=== PATIENT | male | born 1985 | race Caucasian/White ===

== ENCOUNTER 2017-01-24 11:26 | Emergency (ER) | payer OTHER ==
[2017-01-24 11:30] VITALS: BP 130/81; PULSE 105; TEMP 97.8; BMI 31.2
--- NOTE | 2017-01-24 12:39 | PDOC ---
History of Present Illness - General Chief Complaint: Pain Stated Complaint: SICK Time Seen by Provider: 01/24/17 12:34 History Source: Patient Exam Limitations: No Limitations - History of Present Illness Initial Comments: 01/24/17 12:58 My chief complaint: Nasal and sinus congestion, right ear clogged decreased hearing today productive cough 2 weeks and left index finger swelling 1 month History of present illness: Patient is a 31 year old male insulin-dependent with arthritis here today complaining of being sick for 2 weeks with nasal and sinus congestion, productive cough of greenish phlegm. Patient denies any shortness of breath. Patient reports that today he woke up and his right ear was clogged could not hear well out of it. Patient denies any pain in his ears. He denies sore throat. Patient reports having had chills and subjective fever over the last 2 weeks. Patient has had swelling of his left index finger PIP joint one month. He denies injury to finger. Pt. warts that joint is painful with movement. He denies any known sick contacts or travel. 01/24/17 13:09 01/24/17 13:10 Timing/Duration: intermittent (for 2 weeks nasal congestion, productive cough, sinus/nasal congestion) Severity: moderate Associated Symptoms: reports: cough (productive greenish ), fever/chills ( chills ), other (nasal and sinus congeston, pain left index finger with swelling of pip jt for one month ) Past History - Past Medical History Allergies/Adverse Reactions: Allergies Allergy/AdvReac Type Severity Reaction Status Date / Time No Known Allergies Allergy Verified 01/24/17 11:30 Home Medications: Ambulatory Orders Gabapentin 0 mg PO DAILY 08/18/14 Insulin NPL/Insulin Lispro [Humalog Mix 50-50 Kwikpen] 25 unit SQ BID 08/18/14 Amoxicillin - [Amoxicillin 875mg Tablet -] 875 mg PO BID #20 tablet 01/24/17 Carbamide Peroxide [Debrox] 5 drop AD AC #1 drops 01/24/17 COPD: No Diabetes: Yes Other medical history: ARTHRITIS - Immunization History Immunization Up to Date: Yes - Suicide/Smoking/Psychosocial Hx Smoking Status: No Smoking History: Current every day smoker Have you smoked in the past 12 months: Yes Number of Cigarettes Smoked Daily: 15 Information on smoking cessation initiated: No 'Breaking Loose' booklet given: 08/21/14 Hx Alcohol Use: No Drug/Substance Use Hx: No Substance Use Type: None Hx Substance Use Treatment: No Review of Systems - Review of Systems Able to Perform ROS?: Yes Constitutional: Yes: Chills, Fever (subjective ) HEENTM: Yes: Nose Pain, Hearing Loss (rt. ear today ), Other (sinus tenderness above eyes ) Respiratory: Yes: Productive cough (greenish x 2 weeks ) Cardiac (ROS): No: Symptoms Reported ABD/GI: No: Symptoms Reported : No: Symptoms Reported Musculoskeletal: Yes: Joint Pain (left index PIP jt ), Joint Swelling (left index pip jt ) Integumentary: No: Symptoms Reported *Physical Exam - Vital Signs Last Vital Signs Temp Pulse Resp BP Pulse Ox 97.8 F 105 H 18 130/81 98 01/24/17 11:27 01/24/17 11:27 01/24/17 11:27 01/24/17 11:27 01/24/17 11:27 - Physical Exam General Appearance: Yes: Appropriately Dressed HEENT: positive: TMs Normal (left ), Nasal Congestion, Sinus Tenderness ( ethymoid b/l ), Hearing Decreased (rt. ), Other (rt. cerumen unable to visualize ). negative: Pharyngeal Erythema, Tonsillar Exudate, Tonsillar Erythema Neck: negative: Lymphadenopathy (R), Lymphadenopathy (L) Respiratory/Chest: positive: Lungs Clear, Normal Breath Sounds. negative: Chest Tender, Respiratory Distress Cardiovascular: positive: Regular Rhythm, Regular Rate, S1, S2 Extremity: positive: Normal Capillary Refill, Normal Range of Motion (left index ), Tender (left index pip jt ), Swelling (left index pip jt ). negative: Normal Inspection (left index ) Integumentary: positive: Normal Color Neurologic: positive: Alert Medical Decision Making - Medical Decision Making 01/24/17 13:10 Patient is a 31 year old male insulin-dependent with arthritis here today complaining of being sick for 2 weeks with nasal and sinus congestion, productive cough of greenish phlegm. Patient denies any shortness of breath. Patient reports that today he woke up and his right ear was clogged could not hear well out of it. Patient denies any pain in his ears. He denies sore throat. Patient reports having had chills and subjective fever over the last 2 weeks. Patient has had swelling of his left index finger PIP joint one month. He denies injury to finger. Pt. warts that joint is painful with movement. He denies any known sick contacts or travel. rt. ear cerumen impaction bronchitis sinus and nasal congestion r/o fracture left index finger 01/24/17 13:12 PLAN: irrigation of rt. ear with moderate removal of cerumen unable to visualize TM still will have pt. use debrox 5 drops bid for 4 days follow up with ENT next week xray left index finger no fracture or dislocation noted 01/24/17 13:24 Aleve or Advil as needed as directed by telegraph installer follow up with orthopedist amoxicillin 875 mg bid for 10 days 01/24/17 13:25 01/24/17 14:04 Mucinex directed by telegraph installer for cough claritin or nadia take as directed for 5 days debrox 5 drops rt ear bid for 4 days 01/24/17 14:20 *DC/Admit/Observation/Transfer Diagnosis at time of Disposition: Bronchitis, Sinus congestion, Finger pain, left, Excessive cerumen in right ear canal - Discharge Dispostion Disposition: HOME Condition at time of disposition: Stable - Prescriptions Prescriptions: Amoxicillin - [Amoxicillin 875mg Tablet -] 875 mg PO BID #20 tablet Carbamide Peroxide [Debrox] 5 drop AD AC #1 drops - Referrals Referrals: Raegan Brennan [Primary Care Provider] - Sundar Lepe MD [Staff Physician] - - Patient Instructions Additional Instructions: Follow-up with orthopedist in regards to your left index finger for further evaluation Take Advil or Aleve as needed as directed by telegraph installer for pain of finger Take Claritin or Nadia as directed by telegraph installer for nasal congestion sinus pressure You may purchase Mucinex [id number] and take as directed for cough Return to emergency room if symptoms worsen difficulty breathing or any other symptoms develop Patient voiced understanding of discharge instructions and all questions were answered thank you fro choosing [facility] emergency room for your medical needs today
== END 2017-01-24 14:33 | disposition home or self-care (01) ==
LOC: JERFT 11:26
PROC: 3E1B78Z Irrigation of Ear using Irrigating Substance, Via Natural or Artificial Opening (ICD-10-PCS; principal; 2017-01-24)
DX: J40 Bronchitis, not specified as acute or chronic (principal); H61.21 Impacted cerumen, right ear; E11.9 Type 2 diabetes mellitus without complications; Z79.4 Long term (current) use of insulin; F17.210 Nicotine dependence, cigarettes, uncomplicated
CPT/HCPCS: 73140-TC-LT; 99281-25

== ENCOUNTER 2017-02-18 11:58 | Emergency (ER) | payer OTHER ==
[2017-02-18 12:19] VITALS: BP 131/77; PULSE 81; TEMP 97.9; BMI 36.3
[2017-02-18] MEDS ORDERED: KETOROLAC TROMETHAMINE 60 MG/2 ML VIAL IM ONE (13:39)
--- NOTE | 2017-02-18 13:39 | PDOC ---
History of Present Illness - General Chief Complaint: Pain Stated Complaint: PAIN/ LEGS, WEAKNESS Time Seen by Provider: 02/18/17 13:22 History Source: Patient Exam Limitations: No Limitations - History of Present Illness Initial Comments: 02/18/17 13:53 Patient is a 31-year-old male with past medical history of diabetes, chronic low back pain, chronic neck pain, who presents to the emergency department today complaining of bilateral calf pain. Patient states the pain on the right is worse than the left. He states that the pain feels like a shooting pain through his calf. The pain radiates up to the back of his mid thigh. Patient states that he cannot get comfortable and that it hurts to walk. Patient works as a otr refrigerated cdl truck driver. Denies trauma, falls, recent illness, numbness and tingling to the feet, weakness in the feet, bowel and bladder incontinence. Past History - Travel Traveled outside of the country in the last 30 days: No Close contact w/someone who was outside of country & ill: No - Past Medical History Allergies/Adverse Reactions: Allergies Allergy/AdvReac Type Severity Reaction Status Date / Time No Known Allergies Allergy Verified 02/18/17 12:19 Home Medications: Ambulatory Orders Gabapentin 0 mg PO DAILY 08/18/14 Insulin Degludec [Tresiba Flextouch U-100] 100 unit SQ ASDIR 02/18/17 Linagliptin/Metformin HCl [Jentadueto 2.5 mg-500 mg Tab] 1 each PO ASDIR Naproxen/Esomeprazole Mag [Vimovo Dr 375-20 mg Tablet] 1 each PO ASDIR 02/18/17 Oxycodone HCl/Acetaminophen [Percocet 10-325 mg Tablet] 1 each PO ASDIR Prednisone [Deltasone -] 40 mg PO DAILY #8 tablet 02/18/17 Ramipril [Altace] 2.5 mg PO DAILY 02/18/17 COPD: No DVT: No Diabetes: Yes Other medical history: arthritis, carpal tunnel - Immunization History Immunization Up to Date: Yes - Suicide/Smoking/Psychosocial Hx Smoking Status: No Smoking History: Current every day smoker Have you smoked in the past 12 months: Yes Number of Cigarettes Smoked Daily: 10 Information on smoking cessation initiated: Yes 'Breaking Loose' booklet given: 02/18/17 Hx Alcohol Use: No Drug/Substance Use Hx: No Substance Use Type: None Hx Substance Use Treatment: No Review of Systems - Review of Systems Able to Perform ROS?: Yes Comments:: 02/18/17 13:55 CONSTITUTIONAL: Absent: fever, chills, diaphoresis, generalized weakness, malaise, loss of appetite HEENT: Absent: rhinorrhea, nasal congestion, throat pain, throat swelling, difficulty swallowing, mouth swelling, ear pain, eye pain, visual Changes CARDIOVASCULAR: Absent: chest pain, loss of consciousness, palpitations, irregular heart rate, peripheral edema RESPIRATORY: Absent: cough, shortness of breath, dyspnea with exertion, orthopnea, wheezing, stridor, hemoptysis GASTROINTESTINAL: Absent: abdominal pain, abdominal distension, nausea, vomiting, diarrhea, constipation, melena, hematochezia GENITOURINARY: Absent: dysuria, frequency, urgency, hesitancy, hematuria, flank pain, genital pain MUSCULOSKELETAL: Present: b/l calf pain, reports leg swelling. low back pain. Absent: myalgia, arthralgia, joint swelling SKIN: Absent: rash, itching, pallor HEMATOLOGIC/IMMUNOLOGIC: Absent: easy bleeding, easy bruising, lymphadenopathy, frequent infections ENDOCRINE: Absent: unexplained weight gain, unexplained weight loss, heat intolerance, cold intolerance NEUROLOGIC: Absent: headache, focal weakness or paresthesias, dizziness, unsteady gait, seizure, mental status changes, bladder or bowel incontinence PSYCHIATRIC: Absent: anxiety, depression, suicidal or homicidal ideation, hallucinations. Is the patient limited Greek proficient: No *Physical Exam - Vital Signs Last Vital Signs Temp Pulse Resp BP Pulse Ox 97.9 F 81 19 131/77 98 02/18/17 12:17 02/18/17 12:17 02/18/17 12:17 02/18/17 12:17 02/18/17 12:17 - Physical Exam Comments: 02/18/17 13:56 GENERAL: Well developed, well nourished. Awake and alert. No acute distress. HEENT: Normocephalic, atraumatic. PERRLA, EOMI. No conjunctival pallor. Sclera are non- icteric. Moist mucous membranes. Oropharynx is clear. NECK: Supple. Full ROM. No JVD. Carotid pulses 2+ and symmetric, without bruits. No thyromegaly. No lymphadenopathy. CARDIOVASCULAR: Regular rate and rhythm. No murmurs, rubs, or gallops. Distal pulses are 2+ and symmetric. PULMONARY: No evidence of respiratory distress. Lungs clear to auscultation bilaterally. No wheezing, rales or rhonchi. ABDOMINAL: Soft. Non-tender. Non-distended. No rebound or guarding. No organomegaly. Normoactive bowel sounds. MUSCULOSKELETAL Normal range of motion at all joints. No bony deformities or tenderness. No CVA tenderness. EXTREMITIES: B/L calf tenderness to palpation. Mildly swollen b/l. No cyanosis. No clubbing. No edema. SKIN: Warm and dry. Normal capillary refill. No rashes. No jaundice. NEUROLOGICAL: Alert, awake, appropriate. Cranial nerves 2-12 intact. No deficits to light touch and temperature in face, upper extremities and lower extremities. No motor deficits in the in face, upper extremities and lower extremities. Normoreflexic in the upper and lower extremities. Normal speech. Toes are down- going bilaterally. Gait is normal without ataxia. PSYCHIATRIC: Cooperative. Good eye contact. Appropriate mood and affect. Medical Decision Making - Medical Decision Making 02/18/17 13:57 Patient is a 31-year-old male with past medical history of insulin-dependent diabetes, low back pain, chronic neck pain, who presents emergency Department with increasing calf pain. States the pain is a shooting pain and that his legs are swollen. 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 Most likely a chronic pain that has been exacerbated. Also cannot rule out neuropathy given his diabetes 1.Toradol, Percocet, prednisone 2.duplex ultrasound 3.reevaluate 02/18/17 14:58 Ultrasound negative at this time. Most likely a chronic exacerbation of his pain. Guillermo ld/c home with steroids and instructions to take his pain medications as prescribed. Informed to keep good blood sugar control given prednisone can elevate the blood sugar. *DC/Admit/Observation/Transfer Diagnosis at time of Disposition: Leg pain Qualifiers: Laterality: bilateral Qualified Code(s): M79.604 - Pain in right leg - Discharge Dispostion Disposition: HOME Condition at time of disposition: Good Admit: No - Prescriptions Prescriptions: Prednisone [Deltasone -] 40 mg PO DAILY #8 tablet - Referrals Referrals: Raegan Brennan [Primary Care Provider] - - Patient Instructions Printed Discharge Instructions: DI for Leg Pain Additional Instructions: You have leg pain. Your DVT study was negative today. You need to follow up with your primary care doctor and pain management doctor as soon as possible. You were prescribed prednisone. Please take this medication as prescribed. Check your blood sugar regularly as this medication can make your sugar very high. Return to the ED if you have worsening pain, fevers, bowel or bladder incontinence, or have any changes in your symptoms. - Post Discharge Activity Forms/Work/School Notes: Back to Work
[2017-02-18] MEDS ORDERED: KETOROLAC TROMETHAMINE 60 MG/2 ML VIAL ONE (13:43)
[2017-02-18] MEDS ORDERED: predniSONE 20 MG TABLET (UD) PO ONE (13:45)
[2017-02-18] MEDS ORDERED: predniSONE 20 MG TABLET (UD) ONE (13:50)
== END 2017-02-18 15:25 | disposition home or self-care (01) ==
LOC: JERFT 11:58
PROC: 3E0233Z Introduction of Anti-inflammatory into Muscle, Percutaneous Approach (ICD-10-PCS; principal; 2017-02-18)
DX: M79.604 Pain in right leg (principal); E10.9 Type 1 diabetes mellitus without complications; Z79.4 Long term (current) use of insulin; M54.2 Cervicalgia; M54.5 Low back pain
CPT/HCPCS: 93970-TC; 96372; 99281-25

== ENCOUNTER 2017-08-14 09:51 | Emergency (ER) | payer OTHER ==
[2017-08-14 10:07] VITALS: BP 120/70; PULSE 83; TEMP 98.3; BMI 36.0
--- NOTE | 2017-08-14 10:42 | PDOC ---
History of Present Illness - General Chief Complaint: Migraine Headache Stated Complaint: HEADACHES, WEAKNESS Time Seen by Provider: 08/14/17 10:41 History Source: Patient Exam Limitations: No Limitations - History of Present Illness Initial Comments: 08/14/17 10:41 Best Contact: refused PCP: Dr. Raegan Brennan Pmhx: IDDM, Arthritis, Carpal tunnel, Pshx:N/A Allergies: NKDA FH:N/A Social Hx: Ciarettes/ Alcohol/ Drugs/ LMP: N/A 32-year-old male presents to the emergency department complaining of frontal, right maxillary pressure with nasal congestion, productive cough 4 days without fever, chills, nausea/vomiting, earaches, sore throat, difficulty swallowing, neck pain/stiffness, back pains, chest pain, shortness of breath, abdominal pains, flank pains, urinary symptoms. Past History - Past Medical History Allergies/Adverse Reactions: Allergies Allergy/AdvReac Type Severity Reaction Status Date / Time No Known Allergies Allergy Verified 08/14/17 10:07 Home Medications: Ambulatory Orders Insulin Degludec [Tresiba Flextouch U-100] 100 unit SQ ASDIR 02/18/17 Linagliptin/Metformin HCl [Jentadueto 2.5 mg-500 mg Tab] 1 each PO ASDIR Oxycodone HCl/Acetaminophen [Percocet 10-325 mg Tablet] 10 mg PO ASDIR 06/01/17 Tizanidine HCl 2 mg PO ASDIR 06/01/17 Amoxicillin/Potassium Clav [Augmentin 875-125 Tablet] 1 each PO BID #20 tablet 08/14/17 COPD: No DVT: No Diabetes: Yes - Immunization History Immunization Up to Date: Yes - Suicide/Smoking/Psychosocial Hx Smoking Status: No Smoking History: Current some day smoker Have you smoked in the past 12 months: Yes Number of Cigarettes Smoked Daily: 10 Information on smoking cessation initiated: No 'Breaking Loose' booklet given: 02/18/17 Hx Alcohol Use: No Drug/Substance Use Hx: No Substance Use Type: None Hx Substance Use Treatment: No Review of Systems - Review of Systems Able to Perform ROS?: Yes Comments:: 08/14/17 10:42 CONSTITUTIONAL: Absent: fever, chills, diaphoresis, generalized weakness, malaise, loss of appetite HEENT: Absent: rhinorrhea, nasal congestion, throat pain, throat swelling, difficulty swallowing, mouth swelling, ear pain, eye pain, visual Changes CARDIOVASCULAR: Absent: chest pain, loss of consciousness, palpitations, irregular heart rate, peripheral edema RESPIRATORY: +cough/nasal congestion Right sided maxillar pressure/frontal forehead pressure Absent: shortness of breath, dyspnea with exertion, orthopnea, wheezing, stridor, hemoptysis GASTROINTESTINAL: Absent: abdominal pain, abdominal distension, nausea, vomiting, diarrhea, constipation, melena, hematochezia GENITOURINARY: Absent: dysuria, frequency, urgency, hesitancy, hematuria, flank pain, genital pain MUSCULOSKELETAL: Absent: myalgia, arthralgia, joint swelling SKIN: Absent: rash, itching, pallor HEMATOLOGIC/IMMUNOLOGIC: Absent: easy bleeding, easy bruising, lymphadenopathy, frequent infections ENDOCRINE: Absent: unexplained weight gain, unexplained weight loss, heat intolerance, cold intolerance NEUROLOGIC: Absent: headache, focal weakness or paresthesias, dizziness, unsteady gait, seizure, mental status changes, bladder or bowel incontinence PSYCHIATRIC: Absent: anxiety, depression, suicidal or homicidal ideation, hallucinations. Is the patient limited Maltese proficient: No *Physical Exam - Vital Signs Last Vital Signs Temp Pulse Resp BP Pulse Ox 98.3 F 83 20 120/70 98 08/14/17 10:06 08/14/17 10:06 08/14/17 10:06 08/14/17 10:06 08/14/17 10:06 - Physical Exam Comments: 08/14/17 10:42 GENERAL: Well developed, well nourished. Awake and alert. No acute distress. HEENT: Positive pain to the right maxillary region on percussion Normocephalic, atraumatic. PERRLA, EOMI. No conjunctival pallor. Sclera are non- icteric. Moist mucous membranes. Oropharynx is clear. NECK: Supple. Full ROM. No JVD. Carotid pulses 2+ and symmetric, without bruits. No thyromegaly. No lymphadenopathy. CARDIOVASCULAR: Regular rate and rhythm. No murmurs, rubs, or gallops. Distal pulses are 2+ and symmetric. PULMONARY: No evidence of respiratory distress. Lungs clear to auscultation bilaterally. No wheezing, rales or rhonchi. ABDOMINAL: Soft. Non-tender. Non-distended. No rebound or guarding. No organomegaly. Normoactive bowel sounds. MUSCULOSKELETAL Normal range of motion at all joints. No bony deformities or tenderness. No CVA tenderness. EXTREMITIES: No cyanosis. No clubbing. No edema. No calf tenderness. SKIN: Warm and dry. Normal capillary refill. No rashes. No jaundice. NEUROLOGICAL: Alert, awake, appropriate. Cranial nerves 2-12 intact. No deficits to light touch and temperature in face, upper extremities and lower extremities. No motor deficits in the in face, upper extremities and lower extremities. Normoreflexic in the upper and lower extremities. Normal speech. Toes are down- going bilaterally. Gait is normal without ataxia. *DC/Admit/Observation/Transfer Diagnosis at time of Disposition: Sinusitis Qualifiers: Sinusitis location: maxillary Chronicity: acute Recurrence: not specified as recurrent Qualified Code(s): J01.00 - Acute maxillary sinusitis, unspecified Acute bronchitis Qualifiers: Bronchitis organism: unspecified organism Qualified Code(s): J20.9 - Acute bronchitis, unspecified - Discharge Dispostion Disposition: HOME Condition at time of disposition: Stable Decision to Admit order: No - Prescriptions Prescriptions: Amoxicillin/Potassium Clav [Augmentin 875-125 Tablet] 1 each PO BID #20 tablet - Referrals Referrals: Raegan Brennan [Primary Care Provider] - - Patient Instructions Printed Discharge Instructions: DI for Sinusitis, DI for Acute Bronchitis Additional Instructions: Take the Augmentin 875 mg 1 tablet twice a day until completion Increase fluids [id number] supportive care Follow-up with your doctor, Dr. Brennan Return to the ER for severe/persistent or worsening symptoms - Post Discharge Activity
== END 2017-08-14 11:03 | disposition home or self-care (01) ==
LOC: JERFT 09:51
DX: J01.00 Acute maxillary sinusitis, unspecified (principal); J20.9 Acute bronchitis, unspecified; F17.210 Nicotine dependence, cigarettes, uncomplicated; E11.9 Type 2 diabetes mellitus without complications; Z79.4 Long term (current) use of insulin
CPT/HCPCS: 99281-25

== ENCOUNTER 2018-03-25 12:18 | Emergency (ER) | payer OTHER ==
[2018-03-25] MEDS ORDERED: ONDANSETRON 4 MG/2 ML VIAL IVPB ONE (12:41)
[2018-03-25] MEDS ORDERED: SODIUM CHLORIDE 1,000 ML IV ONE (12:42)
--- NOTE | 2018-03-25 12:42 | PDOC ---
Attending Attestation - Resident Resident Name: HiraCj tinsley - ED Attending Attestation I have performed the following: I have examined & evaluated the patient, The case was reviewed & discussed with the resident, I agree w/resident's findings & plan, Exceptions are as noted - HPI HPI: 03/25/18 12:43 32y M hx of DM, presents with complaint of vomiting/diarrhea/gneralized weakness for several days. Pt went to the restroom today and felt very lightheaded and felt like passing out so came to the ED. endorses subjective fevers. the pt notes some sob. denies any cp, abd pain, no recent travel or sick contacts. vomiting is food contents, non bloody, non coffee grounds. diarrhea is non bloody, watery. pt endorses mild headache for the last several days in addition to his sypmtoms denies any vision changse, numbness/tingling/weakness. - Physicial Exam PE: 03/25/18 13:01 GENERAL: The patient is awake, alert, and fully oriented, Nontoxic - in no acute distress. HEAD: Normocephalic, atraumatic. EYES: extraocular movements intact, sclera anicteric, conjunctiva clear. ENT: Normal voice, dry mucous membranes. NECK: Normal range of motion, supple LUNGS: Breath sounds equal, clear to auscultation bilaterally. No wheezes, no rhonchi, no rales. HEART: Regular rate and rhythm, normal S1 and S2 without murmur, rub or gallop. ABDOMEN: Soft, mild llq tenderness, No guarding, no rebound. . No CVA tenderness EXTREMITIES: Normal range of motion, NEUROLOGICAL: No facial assymetry, Normal speech, PSYCH: Normal mood, normal affect. SKIN: Warm, Dry, normal turgor, - Medical Decision Making 03/25/18 13:03 Suspect possible gastroenteritis Will check labs to rule out metabolic derangements Zofran for symptomatic relief will also rule out DKA 03/25/18 13:26 The patient's labs were reviewed there is no signs of DKA however the patient does have +1 acetone I suspect this may be due to volume contraction/ dehydration. Will reyhydrate the patient and treated supportively will reassess.
[2018-03-25 12:50] LABS: VENOUS PC02 38.5 mmHg (38-52); VENOUS PH 7.4 (7.32-7.42); VENOUS PO2 27.3 mmHg (28-48)
[2018-03-25 12:52] LABS: BASO % 1.4 % (0-2.0); EOS % 1.4 % (0-4.5); HEMATOCRIT 49.7 % (35.4-49); MCH 28.7 pg (25.7-33.7); MCHC 34.2 g/dl (32.0-35.9); MEAN PLT VOLUME 9.5 fl (7.5-11.1); NEUT % 56.2 % (42.8-82.8); PLATELET COUNT 347 K/MM3 (134-434); RBC 5.91 M/mm3 (4.00-5.60); RDW 12.7 % (11.9-15.9); WHITE BLOOD COUNT 10.7 K/mm3 (4.0-10.0)
[2018-03-25 13:09] LABS: ALBUMIN 4.6 g/dl (3.4-5.0); ALK PHOS 90 U/L (45-117); ANION GAP 14 MMOL/L (8-16); BILIRUBIN,TOTAL 0.6 mg/dL (0.2-1); BLOOD UREA NITROGEN 18 mg/dL (7-18); CALCIUM 9.8 mg/dL (8.5-10.1); CHLORIDE 99 mmol/L (98-107); CO2 21 mmol/L (21-32); CREATININE 1.1 mg/dL (0.55-1.3); GLUCOSE,RANDOM 196 mg/dL (74-106); LIPASE 283 U/L (73-393); POTASSIUM 3.9 mmol/L (3.5-5.1); SGOT/AST 13 U/L (15-37); SGPT/ALT 28 U/L (13-61); SODIUM 133 mmol/L (136-145); TOT PROT 8.5 g/dl (6.4-8.2)
[2018-03-25] MEDS ORDERED: SODIUM CHLORIDE 1,000 ML IV STA (13:13)
--- NOTE | 2018-03-25 13:21 | PDOC ---
History of Present Illness - General Chief Complaint: Weakness Stated Complaint: Vomiting/Diarrhea/ABD PAIN Time Seen by Provider: 03/25/18 12:40 History Source: Patient Exam Limitations: No Limitations - History of Present Illness Initial Comments: 03/25/18 13:15 Patient is a 32M with history of IDDM here today complaining of abdominal pain, nausea, and vomiting that started this morning. Patient also endorses shortness of breath, hand tingling. Denies fevers, chills. Denies blood and vomit. Denies alcohol use during new years celebration. Denies chest pain, leg swelling. Patient reports compliance with medication. Patient was sitting on floor in waiting room because he said he was too weak. Past History - Past Medical History Allergies/Adverse Reactions: Allergies Allergy/AdvReac Type Severity Reaction Status Date / Time No Known Allergies Allergy Verified 03/25/18 12:36 Home Medications: Ambulatory Orders Tizanidine HCl 2 mg PO ASDIR 06/01/17 Gabapentin [Neurontin -] mg PO ASDIR 03/25/18 Insulin Glargine,Hum.rec.anlog [Lantus Solostar PEN (NF)] 0 units SQ ASDIR 03/25 Insulin Sliding Scale [Novolog Vial Sliding Scale -] 0 units SQ ACHS 03/25/18 Meloxicam [Mobic] 15 mg PO ASDIR 03/25/18 COPD: No DVT: No Diabetes: Yes - Immunization History Immunization Up to Date: Yes - Suicide/Smoking/Psychosocial Hx Smoking Status: No Smoking History: Current some day smoker Have you smoked in the past 12 months: Yes Number of Cigarettes Smoked Daily: 10 'Breaking Loose' booklet given: 02/18/17 Hx Alcohol Use: No Drug/Substance Use Hx: No Substance Use Type: None Hx Substance Use Treatment: No Review of Systems - Review of Systems Comments:: 03/25/18 13:24 GENERAL/CONSTITUTIONAL: No fever or chills. +weakness. HEAD, EYES, EARS, NOSE AND THROAT: No change in vision. No sore throat. CARDIOVASCULAR: No chest pain +shortness of breath RESPIRATORY: No cough, wheezing, or hemoptysis. GASTROINTESTINAL: +nausea, +vomiting, +diarrhea GENITOURINARY: No dysuria, frequency, or change in urination. MUSCULOSKELETAL: No joint or muscle swelling or pain. No neck or back pain. SKIN: No rash NEUROLOGIC: +headache, no vertigo, loss of consciousness, or change in strength/ sensation. ALLERGIC/IMMUNOLOGIC: No hives or skin allergy. *Physical Exam - Physical Exam Comments: 03/25/18 13:26 GENERAL: Awake, alert, and fully oriented, tearful HEAD: No signs of trauma, normocephalic, atraumatic EYES: PERRLA, EOMI, sclera anicteric, conjunctiva clear ENT: Auricles normal inspection, hearing grossly normal, nares patent, oropharynx clear without exudates. Moist mucosa NECK: Normal ROM, supple, no lymphadenopathy, JVD, or masses LUNGS: No distress, speaks full sentences, clear to auscultation bilaterally HEART: Regular rate and rhythm, normal S1 and S2, no murmurs, rubs or gallops, peripheral pulses normal and equal bilaterally. ABDOMEN: Soft, nontender, normoactive bowel sounds. No guarding, no rebound. No masses EXTREMITIES: Normal inspection, Normal range of motion, no edema. No clubbing or cyanosis. NEUROLOGICAL: Cranial nerves II through XII grossly intact. Normal speech, no focal sensorimotor deficits SKIN: Warm, Dry, normal turgor, no rashes or lesions noted. ED Treatment Course - LABORATORY CBC & Chemistry Diagram: 03/25/18 12:42 03/25/18 12:42 - ADDITIONAL ORDERS Additional order review: Laboratory Results 03/25/18 03/25/18 03/25/18 12:42 12:42 12:42 VBG pH 7.40 POC VBG pCO2 38.5 POC VBG pO2 27.3 L Mixed VBG HCO3 23.3 Sodium 133 L Potassium 3.9 Chloride 99 Carbon Dioxide 21 Anion Gap 14 BUN 18 Creatinine 1.1 Creat Clearance w eGFR > 60 Random Glucose 196 H Calcium 9.8 Magnesium 2.0 Total Bilirubin 0.6 AST 13 L ALT 28 Alkaline Phosphatase 90 Total Protein 8.5 H Albumin 4.6 Lipase 283 03/25/18 12:42 RBC 5.91 H MCV 84.0 MCHC 34.2 RDW 12.7 MPV 9.5 D Neutrophils % 56.2 D Lymphocytes % 35.0 D Monocytes % 6.0 Eosinophils % 1.4 Basophils % 1.4 Medical Decision Making - Medical Decision Making 03/25/18 13:37 Patient is 32M here today with shortness of breath, weakness, vomiting. Vitals normal and stable. DDx includes, but is not limited to: dka, dehydration, gastritis. Will evaluate with cbc, cmp, vbg, acetone, lipase. Will treat with fluids and reglan. 03/25/18 14:00 Laboratory Tests 03/25/18 03/25/18 03/25/18 12:42 12:42 12:42 WBC 10.7 H Hgb 17.0 H Plt Count 347 D VBG pH 7.40 Random Glucose 196 H Acetone, Qual 03/25/18 12:42 WBC Hgb Plt Count VBG pH Random Glucose Acetone, Qual Positive small 1+ CBC shows evidence of hemoconcentration. Acetone small+. Glucose<200. VBG ph normal. Gap normal. Patient is not on sglt2 inhibitor. Patient is not in DKA. Given percocet for chronic pain. Will hydrate, reassess. 03/25/18 17:56 Reassessed, feels better. Will discharge home with instructions to follow up with your primary care doctor. *DC/Admit/Observation/Transfer Diagnosis at time of Disposition: Vomiting - Discharge Dispostion Disposition: HOME Condition at time of disposition: Good Decision to Admit order: No - Referrals Referrals: Raegan Brennan [Primary Care Provider] - - Patient Instructions Printed Discharge Instructions: DI for Vomiting -- Adult Additional Instructions: Please return to the ED if you have any new, worsening or concerning symptoms, especially fever, increasing pain and repeated vomiting. Please follow up with your primary care doctor this week. - Post Discharge Activity
[2018-03-25] MEDS ORDERED: ONDANSETRON 4 MG/2 ML VIAL ONE ×2 (13:35→13:44)
[2018-03-25] MEDS ORDERED: CYCLOBENZAPRINE HCL 5 MG TABLET PO SCH (14:00)
[2018-03-25 14:06] VITALS: BMI 36.3
[2018-03-25] MEDS ORDERED: CYCLOBENZAPRINE HCL 10 MG TABLET (FP) ONE (14:31)
[2018-03-25 15:58] VITALS: PULSE 89; TEMP 98.1
[2018-03-25] MEDS ORDERED: ACETAMINOPHEN 1000 MG/100 ML VIAL (NON FORMULARY) IVPB ONE (16:39)
[2018-03-25] MEDS ORDERED: ACETAMINOPHEN INJECTION 100 ML IVPB ONE (17:47)
[2018-03-25 18:11] VITALS: BP 128/67
--- NOTE | 2018-03-26 19:00 | EKG ---
Test Reason : Blood Pressure : / mmHG Vent. Rate : 091 BPM Atrial Rate : 091 BPM P-R Int : 162 ms QRS Dur : 094 ms QT Int : 342 ms P-R-T Axes : 047 -01 008 degrees QTc Int : 420 ms NORMAL SINUS RHYTHM NONSPECIFIC ST AND T WAVE ABNORMALITY ABNORMAL ECG NO PREVIOUS ECGS AVAILABLE Confirmed by VICKIE HORNER MD ([id number]) on 03/26/2018 6:59:58 PM Referred By: Confirmed By:VICKIE HORNER MD
== END 2018-03-25 18:00 | disposition home or self-care (01) ==
LOC: JER 12:18
PROC: 3E0337Z Introduction of Electrolytic and Water Balance Substance into Peripheral Vein, Percutaneous Approach (ICD-10-PCS; principal; 2018-03-25)
PROC: 3E033GC Introduction of Other Therapeutic Substance into Peripheral Vein, Percutaneous Approach (ICD-10-PCS; 2018-03-25)
PROC: 3E033NZ Introduction of Analgesics, Hypnotics, Sedatives into Peripheral Vein, Percutaneous Approach (ICD-10-PCS; 2018-03-25)
DX: K52.9 Noninfective gastroenteritis and colitis, unspecified (principal); F17.210 Nicotine dependence, cigarettes, uncomplicated
CPT/HCPCS: 36415; 80053; 82009; 82803; 83690; 83735; 85025; 93005; 93010; 96361; 96374; 96375; 99283-25; J7030

== ENCOUNTER 2018-03-29 02:19 | Inpatient (IN) | payer OTHER ==
[2018-03-29 02:41] VITALS: BMI 30.9
[2018-03-29] MEDS ORDERED: ONDANSETRON 4 MG/2 ML VIAL IVPB ONE ×2 (02:46→16:45)
[2018-03-29] MEDS ORDERED: FAMOTIDINE 20 MG/50 ML IVPB 20 MG/50 ML MG IVPB ONE ×2 (02:46→02:52)
--- NOTE | 2018-03-29 02:48 | PDOC ---
Attending Attestation - Resident Resident Name: Cj Suárez - ED Attending Attestation I have performed the following: I have examined & evaluated the patient, The case was reviewed & discussed with the resident, I agree w/resident's findings & plan - HPI HPI: 03/29/18 02:54 Pt comes with N/V; he was here on Mar 25 with the same; no alcohol consumption, but he does smoke pot. He is obese and has DM; looks like a DM gastroparesis; however he reports that he has never had gastroparesis. - Physicial Exam PE: 03/30/18 04:29 Agree with resident exam. - Medical Decision Making 03/30/18 04:29 Pt is in DKA and he will be hydrated more and treated with IV insulin drip. Here he will receive a bolus, as nurses are too busy to start a drip immediately. Pt was transferred to the MICU.
[2018-03-29] MEDS ORDERED: ONDANSETRON 4 MG/2 ML VIAL ONE ×2 (02:53→03:46)
[2018-03-29] MEDS ORDERED: SODIUM CHLORIDE 0.9% 500 ML INFUS.BAG IV ONE (02:55)
[2018-03-29 02:57] LABS: BASO % 0.5 % (0-2.0); EOS % 0.1 % (0-4.5); HEMATOCRIT 53.1 % (35.4-49); HEMOGLOBIN 18.1 GM/dL (11.7-16.9); LYMPH % 17.9 % (8-40); MCH 29.6 pg (25.7-33.7); MCHC 34.1 g/dl (32.0-35.9); MEAN CELL VOLUME 86.9 fl (80-96); MEAN PLT VOLUME 10.6 fl (7.5-11.1); MONO % 5.5 % (3.8-10.2); PLATELET COUNT 418 K/MM3 (134-434); RBC 6.11 M/mm3 (4.00-5.60); RDW 13.2 % (11.9-15.9); WHITE BLOOD COUNT 15.7 K/mm3 (4.0-10.0)
[2018-03-29] MEDS ORDERED: ONDANSETRON 4 MG/2 ML VIAL IVPUSH ONE (03:42)
[2018-03-29 03:43] LABS: ALBUMIN 4.8 g/dl (3.4-5.0); ALK PHOS 96 U/L (45-117); ANION GAP 29 MMOL/L (8-16); BILIRUBIN,TOTAL 0.7 mg/dL (0.2-1); BLOOD UREA NITROGEN 15 mg/dL (7-18); CALCIUM 9.6 mg/dL (8.5-10.1); CHLORIDE 93 mmol/L (98-107); CO2 6 mmol/L (21-32); CREATININE 1.5 mg/dL (0.55-1.3); LIPASE 50 U/L (73-393); POTASSIUM 5.2 mmol/L (3.5-5.1); SGOT/AST 16 U/L (15-37); SGPT/ALT 24 U/L (13-61); SODIUM 127 mmol/L (136-145); TOT PROT 8.8 g/dl (6.4-8.2)
[2018-03-29 03:45] LABS: GLUCOSE,RANDOM 498 mg/dL (74-106)
[2018-03-29 03:46] LABS: ACETONE SERUM POSITIVE MODERATE 2+ (NEGATIVE)
[2018-03-29] MEDS ORDERED: LORazepam 2 MG/ML SDV VIAL ONE (03:46)
[2018-03-29] MEDS ORDERED: INSULIN REGULAR HUMAN 100 UNITS/ML *VIAL IVPUSH ONE (03:49)
[2018-03-29] MEDS ORDERED: INSULIN REGULAR 100 UNITS in SODIUM CHLORIDE 99 ML IVPB SCH ×2 (04:00→22:21)
[2018-03-29] MEDS ORDERED: SODIUM CHLORIDE 0.9%/KCL 20 MEQ/1,000 ML INFUS.BAG IV SCH ×2 (04:00→07:34)
[2018-03-29] MEDS ORDERED: INSULIN REGULAR HUMAN 100 UNITS/ML *VIAL ONE (04:05)
--- NOTE | 2018-03-29 04:11 | PDOC ---
History of Present Illness - General Chief Complaint: Nausea/Vomiting Stated Complaint: NAUSEA/VOMITING Time Seen by Provider: 03/29/18 02:43 History Source: Patient Exam Limitations: No Limitations - History of Present Illness Initial Comments: 03/29/18 04:10 Patient is a 32M with history of IDDM here today complaining of abdominal pain, nausea, and vomiting. This started on Mar 25. He was evaluated in the ED at that time, found not to be in dka with normal gap and normal ph. Patient states that since going home, he has had repeated episodes of vomiting with epigastric abdominal pain and burning to his chest. Denies fevers, chills. Denies blood in vomit. Patient states that he has not been taking his insulin. Denies dysuria, diarrhea, constipation. Past History - Past Medical History Allergies/Adverse Reactions: Allergies Allergy/AdvReac Type Severity Reaction Status Date / Time No Known Allergies Allergy Verified 03/29/18 02:41 Home Medications: Ambulatory Orders Tizanidine HCl 2 mg PO ASDIR 06/01/17 Gabapentin [Neurontin -] 2 mg PO ASDIR 03/25/18 Insulin Glargine,Hum.rec.anlog [Lantus Solostar PEN (NF)] 1 units SQ ASDIR 03/25 Insulin Sliding Scale [Novolog Vial Sliding Scale -] 0 units SQ ACHS 03/25/18 Meloxicam [Mobic] 15 mg PO ASDIR 03/25/18 Atorvastatin Ca [Lipitor] 20 mg PO HS 03/29/18 COPD: No DVT: No Diabetes: Yes - Immunization History Immunization Up to Date: Yes - Suicide/Smoking/Psychosocial Hx Smoking Status: No Smoking History: Never smoked Have you smoked in the past 12 months: No Number of Cigarettes Smoked Daily: 10 Information on smoking cessation initiated: No 'Breaking Loose' booklet given: 02/18/17 Hx Alcohol Use: No Drug/Substance Use Hx: No Substance Use Type: None Hx Substance Use Treatment: No Review of Systems - Review of Systems Able to Perform ROS?: Yes Comments:: 03/29/18 04:16 GENERAL/CONSTITUTIONAL: No fever or chills. No weakness. HEAD, EYES, EARS, NOSE AND THROAT: No change in vision. No sore throat. CARDIOVASCULAR: +chest pain +shortness of breath RESPIRATORY: No cough, wheezing, or hemoptysis. GASTROINTESTINAL: +nausea, +vomiting, no diarrhea or constipation. GENITOURINARY: No dysuria, frequency, or change in urination. MUSCULOSKELETAL: No joint or muscle swelling or pain. No neck or back pain. SKIN: No rash NEUROLOGIC: No headache, vertigo, loss of consciousness, or change in strength/ sensation. ENDOCRINE: No increased thirst. No abnormal weight change ALLERGIC/IMMUNOLOGIC: No hives or skin allergy. *Physical Exam - Vital Signs Last Vital Signs Temp Pulse Resp BP Pulse Ox 97.3 F L 121 H 21 H 136/81 100 03/29/18 02:19 03/29/18 02:19 03/29/18 02:19 03/29/18 02:19 03/29/18 02:19 - Physical Exam Comments: 03/29/18 04:17 GENERAL: Awake, alert, and fully oriented HEAD: No signs of trauma, normocephalic, atraumatic EYES: PERRLA, EOMI, sclera anicteric, conjunctiva clear ENT: Auricles normal inspection, hearing grossly normal, nares patent, oropharynx clear without exudates. Moist mucosa NECK: Normal ROM, supple, no lymphadenopathy, JVD, or masses LUNGS: Tachypneic, speaks full sentences, clear to auscultation bilaterally HEART: Tachycardic, normal S1 and S2, no murmurs, rubs or gallops, peripheral pulses normal and equal bilaterally. ABDOMEN: Soft, nontender, normoactive bowel sounds. No guarding, no rebound. No masses EXTREMITIES: Normal inspection, Normal range of motion, no edema. No clubbing or cyanosis. NEUROLOGICAL: Cranial nerves II through XII grossly intact. Normal speech, no focal sensorimotor deficits SKIN: Warm, Dry, normal turgor, no rashes or lesions noted. Moderate Sedation - Procedure Monitoring Vital Signs: Procedure Monitoring Vital Signs Temperature 97.3 F L 03/29/18 02:19 Pulse Rate 121 H 03/29/18 02:19 Respiratory Rate 21 H 03/29/18 02:19 Blood Pressure 136/81 03/29/18 02:19 O2 Sat by Pulse Oximetry (%) 100 03/29/18 02:19 ED Treatment Course - LABORATORY CBC & Chemistry Diagram: 03/29/18 02:51 03/29/18 02:51 - ADDITIONAL ORDERS Additional order review: Laboratory Results 03/29/18 02:51 Sodium 127 L Potassium 5.2 H Chloride 93 L Carbon Dioxide 6 L Anion Gap 29 H BUN 15 Creatinine 1.5 H Creat Clearance w eGFR 54.59 Random Glucose 498 H* Calcium 9.6 Total Bilirubin 0.7 AST 16 ALT 24 Alkaline Phosphatase 96 Total Protein 8.8 H Albumin 4.8 Lipase 50 L Acetone, Qual Positive moderate 2+ 03/29/18 02:51 RBC 6.11 H MCV 86.9 MCHC 34.1 RDW 13.2 MPV 10.6 D Neutrophils % 76.0 D Lymphocytes % 17.9 D Monocytes % 5.5 Eosinophils % 0.1 D Basophils % 0.5 - RADIOLOGY Radiology Studies Ordered: Category Date Time Status CHEST X-RAY PORTABLE* [RAD] Stat Radiology 03/29/18 03:10 Taken - Medications Given in the ED: ED Medications Discontinued Medications Generic Name Dose Route Start Last Admin Trade Name Freq PRN Reason Stop Dose Admin Famotidine/Sodium Chloride 20 mg in 50 mls @ 100 mls/hr 03/29/18 02:46 03:11 Pepcid 20 Mg Premixed Ivpb - IVPB 03/29/18 03:15 100 mls/hr ONCE ONE Administration Ondansetron HCl 4 mg 03/29/18 02:46 03/29/18 03:11 Zofran Injection IVPB 03/29/18 02:47 4 mg ONCE ONE Administration Ondansetron HCl 4 mg 03/29/18 03:42 03/29/18 03:52 Zofran Injection IVPUSH 03/29/18 03:43 4 mg ONCE ONE Administration Sodium Chloride 1,000 ml 03/29/18 02:55 03/29/18 03:11 Normal Saline - IV 03/29/18 02:56 1,000 ml ONCE ONE Administration Medical Decision Making - Medical Decision Making 03/29/18 04:18 Patient is 32M with history of IDDM here today with vomiting. Tachypneic, tachycardic. DDx includes, but is not limited to: gastroparesis, gastritis, dka. DKA initially thought less likely because fingerstick <300. IV access very difficult to establish, 24g placed in r arm. US guided IV got 20g in L arm. Fluid bolus started. CBC shows hgb of 18. CMP shows gap of 29, glucose 498. Corrected sodium 133. K 5.2. Fluid order changed to NS w/ 20meq K. Insulin 0.1mg/kg bolus given. Drip started. CXR shows no infiltrate, no pneumomediastinum. ICU and hospitalist paged. ABG ordered. EKG shows sinus tachycardia with rate of 129. No st elevations/depressions. Normal axis. Normal intervals. Patient is mentating well. Do not suspect occult bacteremia or meningitis. Do not suspect UA. Patient's abdomen is soft and nontender. Do not suspect peritoneal process. 03/29/18 04:38 ICU paged second time. 03/29/18 04:43 pH 7.09, will continue insulin drip. 03/29/18 04:57 Approved for ICU by Dr Bal. Dr Sanders attending. 03/29/18 06:26 D/W Dr Whitney, accepted to ICU. *DC/Admit/Observation/Transfer Diagnosis at time of Disposition: Vomiting, DKA (diabetic ketoacidoses) - Discharge Dispostion Condition at time of disposition: Critical Decision to Admit order: Yes - Referrals - Patient Instructions - Post Discharge Activity
[2018-03-29] MEDS ORDERED: ACETAMINOPHEN 1000 MG/100 ML VIAL (NON FORMULARY) IVPB ONE (04:18)
[2018-03-29 04:31] LABS: ARTERIAL BLD GAS O2 SATURATION 96.8 % (90-98.9); ARTERIAL BLOOD GAS BASE EXCESS -28.3 meq/l (-2-2)
[2018-03-29 04:38] LABS: ALLENS TEST POSITIVE
[2018-03-29 04:39] LABS: ARTERIAL BLOOD GAS pH 7.09 (7.35-7.45)
[2018-03-29 04:40] LABS: ARTERIAL BLOOD GAS PCO2 9.7 mmHg (35-45)
[2018-03-29] MEDS ORDERED: ACETAMINOPHEN INJECTION 100 ML IVPB ONE (04:48)
--- NOTE | 2018-03-29 04:56 | PN ---
Teaching Attending Note Name of Resident: Evleyn Stoner ATTENDING PHYSICIAN STATEMENT I saw and evaluated the patient. I reviewed the resident's note and discussed the case with the resident. I agree with the resident's findings and plan as documented. SUBJECTIVE: Patient is a 32 year old man with history of insulin-treated DM, chronic back pain (on Meloxicam?) and Tobacco use here today complaining of abdominal pain, nausea, and vomiting. This started on Mar 252018. He was evaluated in the ER at that time, found not to be in DKA with normal gap and normal ph. His presentation was consistent with viral gastroenteritis. He says that since going home, he has had repeated episodes of vomiting with epigastric abdominal pain and burning to his chest. Denies fevers, chills, dysuria, cough, blood in vomitus or diarrhea. Patient states that he has not been taking his insulin. Smokes marijuana. OBJECTIVE: Alert Vital Signs Period Temp Pulse Resp BP Sys/Marino Pulse Ox Last 24 Hr 97.3 F 121 21 136/81 100 HEENT: No Jaundice, eye redness or discharge, PERRLA, EOMI. Normocephalic, atraumatic. External ears are normal and hearing is grossly intact. No nasal discharge. Neck: Supple, nontender. No palpable adenopathy or thyromegaly. No JVD Chest: Good effort. Clear to auscultation and percussion. Heart: Regular. No S3, rub or murmur Abdomen: Not distended, soft, nontender and no HSM. No rebound or guarding. Normoactive bowel sounds. Ext: Peripheral pulses intact. No leg edema. Skin: Warm and dry. No petechiae, rash or ecchymosis. Neuro: Alert. Oriented x3. CN 2-12 grossly intact. Sensation grossly intact in all four extremities and DTR are symmetric. Current Medications Generic Name Dose Route Start Last Admin Trade Name Freq PRN Reason Stop Dose Admin Potassium Chloride/Sodium Chloride 20 meq in 1,000 mls @ 500 mls/hr 03/29/18 04:00 03/29/18 04:37 Ns+20 Meq Kcl - IV 500 mls/hr ASDIR PAOLA Administration Insulin Human Regular 100 100 mls @ 10.65 mls/hr 03/29/18 04:00 03/29/18 04: 37 units/ Sodium Chloride IVPB 0.1 units/kg/hr TITR PAOLA 10.65 mls/hr Administration Protocol 0.1 UNITS/KG/HR Home Medications Medication Instructions Recorded Tizanidine HCl 2 mg PO ASDIR 06/01/17 Gabapentin [Neurontin -] 2 mg PO ASDIR 03/25/18 Insulin Glargine,Hum.rec.anlog 1 units SQ ASDIR 03/25/18 [Lantus Solostar PEN (NF)] Insulin Sliding Scale [Novolog 0 units SQ ACHS 03/25/18 Vial Sliding Scale -] Meloxicam [Mobic] 15 mg PO ASDIR 03/25/18 Abnormal Lab Results 03/29/18 03/29/18 03/29/18 02:51 02:51 04:15 WBC 15.7 H RBC 6.11 H Hgb 18.1 H Hct 53.1 H Absolute Neuts (auto) 11.9 H ABG pH 7.09 L* D ABG pCO2 at Pt Temp 9.7 L* D ABG pO2 at Pt Temp 127.0 H D ABG HCO3 2.8 L* ABG O2 Content 23.0 H ABG Base Excess -28.3 L* Sodium 127 L Potassium 5.2 H Chloride 93 L Carbon Dioxide 6 L Anion Gap 29 H Creatinine 1.5 H Random Glucose 498 H* Total Protein 8.8 H Lipase 50 L ASSESSMENT AND PLAN: 1. DKA - Precipitating factors include recent bout of ?viral gastroenteritis and not taking insulin. Diabetic gastropathy, use of meloxicam and marijuana may be contributing to nausea and vomiting. Patient started on IV insuln drip, IV fluids and IV KCL. Has hemoconcentration, ILAN and elctrolyte abnormalities due to hyperglycemia and volume loss. Will manage him in the ICU according to the DKA protocol. IV Protonix 40 mg qd. Leukocytosis likely stress reaction. UA and CXR are pending and he is afebrile. Patient counseled to stop using marijuana and meloxicam. Once stable, will provide comprehensive diabetes care with patient teaching and counseling about the importance of euglycemia, eye care and foot care. 2. Tobacco Use We will provide patient all the necessary assistance to facilitate smoking cessation and prescribe Nicotine patch. 3.Obesity - Will provide patient all the necessary assistance, counseling and positive reinforcement to facilitate weight loss. Consult auto body repair teacher. 4. DVT prophylaxis - Lovenox 40 mg SQ q 24 hours. 5. Advance directives - Full code
--- NOTE | 2018-03-29 05:19 | CONSULT ---
Consultation: ICU team REQUESTING PROVIDER: Dr Ritu Wright CONSULT REQUEST: We have been asked to medically evaluate this patient for (DKA ). HISTORY OF PRESENT ILLNESS: Patient is a 32 year old man with history of insulin-treated DM, chronic back pain (on Meloxicam?) and Tobacco use here today complaining of abdominal pain, nausea, and vomiting. This started on Mar 252018. He was evaluated in the ER at that time, found not to be in DKA with normal gap and normal ph. His presentation was consistent with viral gastroenteritis. He says that since going home, he has had repeated episodes of vomiting with epigastric abdominal pain and burning to his chest. Denies fevers, chills, dysuria, cough, blood in vomitus or diarrhea. Patient states that he has not been taking his insulin. Smokes marijuana. REVIEW OF SYSTEMS: CONSTITUTIONAL: Absent: fever, chills, diaphoresis, generalized weakness, malaise, loss of appetite, weight change HEENT: Absent: rhinorrhea, nasal congestion, throat pain, throat swelling, difficulty swallowing, mouth swelling, ear pain, eye pain, visual changes CARDIOVASCULAR: Absent: chest pain, syncope, palpitations, irregular heart rate, lightheadedness , peripheral edema RESPIRATORY: Absent: cough, shortness of breath, dyspnea with exertion, orthopnea, wheezing, stridor, hemoptysis GASTROINTESTINAL: Absent: abdominal pain, abdominal distension, nausea, vomiting, diarrhea, constipation, melena, hematochezia GENITOURINARY: Absent: dysuria, frequency, urgency, hesitancy, hematuria, flank pain, genital pain MUSCULOSKELETAL: Absent: myalgia, arthralgia, joint swelling, back pain, neck pain SKIN: Absent: rash, itching, pallor HEMATOLOGIC/IMMUNOLOGIC: Absent: easy bleeding, easy bruising, lymphadenopathy, frequent infections ENDOCRINE: Absent: unexplained weight gain, unexplained weight loss, heat intolerance, cold intolerance NEUROLOGIC: Absent: headache, focal weakness or paresthesias, dizziness, unsteady gait, seizure, mental status changes, bladder or bowel incontinence PSYCHIATRIC: Absent: anxiety, depression, suicidal or homicidal ideation, hallucinations. PHYSICAL EXAMINATION Vital Signs - 24 hr 03/29/18 02:19 Temperature 97.3 F L Pulse Rate 121 H Respiratory 21 H Rate Blood Pressure 136/81 O2 Sat by Pulse 100 Oximetry (%) GENERAL: Awake, alert, and fully oriented, in mild distress , tachypnech, tachycardic HEAD: Normal with no signs of trauma. EYES: Pupils equal, round and reactive to light, extraocular movements intact, ENT: Moist mucous membranes. NECK: Normal range of motion, supple LUNGS: Breath sounds equal, clear to auscultation bilaterally. No wheezes, and no crackles. No accessory muscle use. HEART: Sinus tachy, normal S1 and S2 without murmur, rub or gallop. ABDOMEN: Obese, Soft, left lower and med epigastric tenderness , normoactive bowel sounds, no guarding, no rebound, MUSCULOSKELETAL: Normal range of motion at all joints. No bony deformities or tenderness. No CVA tenderness. UPPER EXTREMITIES: 2+ pulses, warm, well-perfused. No cyanosis. No clubbing. Cap refill <2 seconds. No peripheral edema. LOWER EXTREMITIES: 2+ pulses, warm, well-perfused. No calf tenderness. No peripheral edema. NEUROLOGICAL: Cranial nerves II-XII intact. Normal speech. Normal gait. PSYCHIATRIC: Cooperative. Good eye contact. Appropriate mood and affect. SKIN: Warm, dry, normal turgor, no rashes or lesions noted. Laboratory Results - last 24 hr 03/29/18 03/29/18 03/29/18 02:51 02:51 04:15 WBC 15.7 H RBC 6.11 H Hgb 18.1 H Hct 53.1 H MCV 86.9 MCH 29.6 MCHC 34.1 RDW 13.2 Plt Count 418 D MPV 10.6 D Absolute Neuts (auto) 11.9 H Neutrophils % 76.0 D Lymphocytes % 17.9 D Monocytes % 5.5 Eosinophils % 0.1 D Basophils % 0.5 Nucleated RBC % 0 Anticoagulation Therapy No Result Required. Puncture Site Left radial ABG pH 7.09 L* D ABG pCO2 at Pt Temp 9.7 L* D ABG pO2 at Pt Temp 127.0 H D ABG HCO3 2.8 L* ABG O2 Sat (Measured) 96.8 ABG O2 Content 23.0 H ABG Base Excess -28.3 L* Akshat Test Positive Carboxyhemoglobin 1.0 Methemoglobin 1.1 O2 Delivery Device No Result Required. Oxygen Flow Rate 21% Vent Mode No Result Required. Vent Rate No Result Required. Mechanical Rate No Result Required. Pressure Support Vent No Result Required. Sodium 127 L Potassium 5.2 H Chloride 93 L Carbon Dioxide 6 L Anion Gap 29 H BUN 15 Creatinine 1.5 H Creat Clearance w eGFR 54.59 Random Glucose 498 H* Calcium 9.6 Total Bilirubin 0.7 AST 16 ALT 24 Alkaline Phosphatase 96 Total Protein 8.8 H Albumin 4.8 Lipase 50 L Acetone, Qual Positive moderate 2+ Active Medications Generic Name Dose Route Start Last Admin Trade Name Freq PRN Reason Stop Dose Admin Potassium Chloride/Sodium Chloride 20 meq in 1,000 mls @ 500 mls/hr 03/29/18 04:00 03/29/18 04:37 Ns+20 Meq Kcl - IV 500 mls/hr ASDIR PAOLA Administration Insulin Human Regular 100 100 mls @ 10.65 mls/hr 03/29/18 04:00 03/29/18 04: 37 units/ Sodium Chloride IVPB 0.1 units/kg/hr TITR PAOLA 10.65 mls/hr Administration Protocol 0.1 UNITS/KG/HR CBC, BMP 03/29/18 02:51 03/29/18 02:51 ASSESSMENT/PLAN: 32 year old male with h/o IDDM presented with one week history fo abdominal pain , N/V and admitted to ICU for DKA # DKA with respiratory alkalosis * Blood sugar 498, AG 29, urine ketone * IV fluids NS with KCl and switch to NS/D5 when sugar below 200 , keep sugar 150-200 * monitor sugar Q 1 hr * BMP q4 hr * Insulin drip 0.1 unit/kg till gap closed and then 0.05 unit /kg when sugar below 200 * monitor K closely and replete as needed * when anion gap closed bridge with SQ insulin for 2 hours and start feeding if tolerating food * Zofran for nausea * # ILAN * likely pre renal due to volume loss and third space * IV fluids * repeat labs * avoid nephrotoxic agents # leuckocytosis * wbc 15.7 * silva cx , UA , cxr * likely reaCTIVE VS GASTRO ENTERITIS * famotidine # Anemia * H/H 18/53.1 * B12, Folic acid , Irone studies * no active bleeding * repeat CBC # drug abuse * smoke Marijuana * educated about abstinence # FEN * NS then D51/2 NS when sugar below 200 * E: hyponatremia , and monitor K closely , replete as needed * npo till gap closed then diabetic diet if tolerating food # dispo * monitor in ICU Dispo: We will continue to follow the patient. Thank you for this consultative opportunity. Visit type - Emergency Visit Emergency Visit: Yes ED Registration Date: 03/29/18 Care time: The patient presented to the Emergency Department on the above date and was hospitalized for further evaluation of their emergent condition. - New Patient This patient is new to me today: Yes Date on this admission: 03/29/18 - Critical Care Critical Care patient: Yes Total Critical Care Time (in minutes): 45 Critical Care Statement: The care of this patient involved high complexity decision making to prevent further life threatening deterioration of the patient 's condition and/or to evaluate & treat vital organ system(s) failure or risk of failure.
[2018-03-29 05:34] LABS: URINE APPEARANCE CLEAR; URINE BILIRUBIN NEGATIVE (<2.0 mg/dL); URINE COLOR LTYELLOW; URINE GLUCOSE (UA) 3+ (NEGATIVE); URINE KETONE 2+ (NEGATIVE); URINE LEUK ESTERASE NEGATIVE (NEGATIVE); URINE NITRITE NEGATIVE (NEGATIVE); URINE PROTEIN 2+ (NEGATIVE); URINE UROBILINOGEN NEGATIVE mg/dL (0.2-1.0)
[2018-03-29 05:42] LABS: EPI CELLS RARE /HPF (FEW); URINE HYALINE CAST 10 /lpf; URINE MUCUS RARE
[2018-03-29] MEDS ORDERED: PANTOPRAZOLE SODIUM 40 MG VIAL IVPUSH SCH (05:53)
--- NOTE | 2018-03-29 06:32 | HP ---
CHIEF COMPLAINT:abdominal pain, nausea and vomiting PCP:Dr. Goel HISTORY OF PRESENT ILLNESS: Patient is a 32 year old male with past medical history of IDDM, presented with abdominal pain, nausea and vomiting, that started 4 days ago. Patient is a poor historian at this time as he seems to be in distress and persistently vomiting. Patient was seen at the ED for the same complaints 4 days ago. He was worked up to rule out DKA. At that time he had a normal anion gap and normal ph, acute gastroenteritis was considered and he was given 2L IVF and was sent home. Patient reported abdominal pain persisted, accompanied by nausea and NBNB vomiting. Patient also reports right-sided chest pain, headache, subjective fevers and chills. He denies cough, nasal congestion, dysphagia, diarrhea, urinary symptoms. He follows up with Dr Morillo as outpatient. ER course was notable for: (1)Glu 498, pH 7.09, HCO3 6, Acetone +2 (2)IV NS + 20meq K (3)insulin drip started Recent Travel:denies PAST MEDICAL HISTORY: IDDM PAST SURGICAL HISTORY: Social History: Smoking: denies Alcohol: denies Drugs: denies Family History: Allergies No Known Allergies Allergy (Verified 03/29/18 02:41) HOME MEDICATIONS: Home Medications Medication Instructions Recorded Tizanidine HCl 2 mg PO ASDIR 06/01/17 Gabapentin [Neurontin -] 2 mg PO ASDIR 03/25/18 Insulin Glargine,Hum.rec.anlog 1 units SQ ASDIR 03/25/18 [Lantus Solostar PEN (NF)] Insulin Sliding Scale [Novolog [address] [facility] 03/25/18 Vial Sliding Scale -] Meloxicam [Mobic] 15 mg PO ASDIR 03/25/18 REVIEW OF SYSTEMS CONSTITUTIONAL: Absent: fever, chills, diaphoresis, generalized weakness, malaise, loss of appetite, weight change HEENT: Absent: rhinorrhea, nasal congestion, throat pain, throat swelling, difficulty swallowing, mouth swelling, ear pain, eye pain, visual changes CARDIOVASCULAR: Absent: R-sided chest pain, syncope, palpitations, irregular heart rate, lightheadedness, peripheral edema RESPIRATORY: Absent: cough, shortness of breath, dyspnea with exertion, orthopnea, wheezing, stridor, hemoptysis GASTROINTESTINAL: Absent: abdominal pain, abdominal distension, nausea, vomiting, diarrhea, constipation, melena, hematochezia GENITOURINARY: Absent: dysuria, frequency, urgency, hesitancy, hematuria, flank pain, genital pain MUSCULOSKELETAL: Absent: myalgia, arthralgia, joint swelling, back pain, neck pain SKIN: Absent: rash, itching, pallor HEMATOLOGIC/IMMUNOLOGIC: Absent: easy bleeding, easy bruising, lymphadenopathy, frequent infections ENDOCRINE: Absent: unexplained weight gain, unexplained weight loss, heat intolerance, cold intolerance NEUROLOGIC: Absent: headache, focal weakness or paresthesias, dizziness, unsteady gait, seizure, mental status changes, bladder or bowel incontinence PSYCHIATRIC: Absent: anxiety, depression, suicidal or homicidal ideation, hallucinations. PHYSICAL EXAMINATION Vital Signs - 24 hr 03/29/18 03/29/18 02:19 05:58 Temperature 97.3 F L Pulse Rate 121 H Pulse Rate [ 135 H Right Radial] Respiratory 21 H 20 Rate Blood Pressure 136/81 Blood Pressure 161/94 [Right Arm] O2 Sat by Pulse 100 100 Oximetry (%) GENERAL: Awake, alert, and fully oriented, uncomfortable, mildly in distress, continuously vomiting HEAD: Normal with no signs of trauma. EYES: PERRLA, EOMI, sclera anicteric, conjunctiva clear. EARS, NOSE, THROAT:Dry mucous membranes. CHEST: +right-sided chest tenderness LUNGS: Breath sounds equal, clear to auscultation bilaterally. HEART: Regular rate and rhythm, normal S1 and S2 without murmur, rub or gallop. ABDOMEN: Soft,+RLQ tenderness, not distended, normoactive bowel sounds. UPPER EXTREMITIES: 2+ pulses, warm, well-perfused. No peripheral edema. LOWER EXTREMITIES: 2+ pulses, warm, well-perfused. No peripheral edema. SKIN: Warm, dry, normal turgor, no rashes or lesions noted. Laboratory Results - last 24 hr 03/29/18 03/29/18 03/29/18 02:51 02:51 03:10 WBC 15.7 H RBC 6.11 H Hgb 18.1 H Hct 53.1 H MCV 86.9 MCH 29.6 MCHC 34.1 RDW 13.2 Plt Count 418 D MPV 10.6 D Absolute Neuts (auto) 11.9 H Neutrophils % 76.0 D Lymphocytes % 17.9 D Monocytes % 5.5 Eosinophils % 0.1 D Basophils % 0.5 Nucleated RBC % 0 Anticoagulation Therapy Puncture Site ABG pH ABG pCO2 at Pt Temp ABG pO2 at Pt Temp ABG HCO3 ABG O2 Sat (Measured) ABG O2 Content ABG Base Excess Akshat Test Carboxyhemoglobin Methemoglobin O2 Delivery Device Oxygen Flow Rate Vent Mode Vent Rate Mechanical Rate Pressure Support Vent Sodium 127 L Potassium 5.2 H Chloride 93 L Carbon Dioxide 6 L Anion Gap 29 H BUN 15 Creatinine 1.5 H Creat Clearance w eGFR 54.59 POC Glucometer [phone] Random Glucose 498 H* Calcium 9.6 Total Bilirubin 0.7 AST 16 ALT 24 Alkaline Phosphatase 96 Troponin I Total Protein 8.8 H Albumin 4.8 Lipase 50 L Urine Color Urine Appearance Urine pH Ur Specific [place] Urine Protein Urine Glucose (UA) Urine Ketones Urine Blood Urine Nitrite Urine Bilirubin Urine Urobilinogen Ur Leukocyte Esterase Urine WBC (Auto) Urine RBC (Auto) Ur Epithelial Cells Hyaline Casts Urine Mucus Acetone, Qual Positive moderate 2+ 03/29/18 03/29/18 03/29/18 04:15 05:22 05:31 WBC RBC Hgb Hct MCV MCH MCHC RDW Plt Count MPV Absolute Neuts (auto) Neutrophils % Lymphocytes % Monocytes % Eosinophils % Basophils % Nucleated RBC % Anticoagulation Therapy No Result Required. Puncture Site Left radial ABG pH 7.09 L* D ABG pCO2 at Pt Temp 9.7 L* D ABG pO2 at Pt Temp 127.0 H D ABG HCO3 2.8 L* ABG O2 Sat (Measured) 96.8 ABG O2 Content 23.0 H ABG Base Excess -28.3 L* Akshat Test Positive Carboxyhemoglobin 1.0 Methemoglobin 1.1 O2 Delivery Device No Result Required. Oxygen Flow Rate 21% Vent Mode No Result Required. Vent Rate No Result Required. Mechanical Rate No Result Required. Pressure Support Vent No Result Required. Sodium Potassium Chloride Carbon Dioxide Anion Gap BUN Creatinine Creat Clearance w eGFR POC Glucometer Random Glucose Calcium Total Bilirubin AST ALT Alkaline Phosphatase Troponin I Cancelled Total Protein Albumin Lipase Urine Color Ltyellow Urine Appearance Clear Urine pH 5.0 Ur Specific [place] 1.026 Urine Protein 2+ H Urine Glucose (UA) 3+ H Urine Ketones 2+ H Urine Blood 1+ H Urine Nitrite Negative Urine Bilirubin Negative Urine Urobilinogen Negative Ur Leukocyte Esterase Negative Urine WBC (Auto) 1 Urine RBC (Auto) 1 Ur Epithelial Cells Rare Hyaline Casts 10 Urine Mucus Rare Acetone, Qual ASSESSMENT/PLAN: Patient is a 32 year old male with past medical history of IDDM, presented with abdominal pain, nausea and vomiting, that started 4 days ago. #Diabetic Ketoacidosis: -Likely 2/2 acute gastroenteritis vs DM gastropathy vs medication noncompliance -Will look for precipitating causes -CXR, UA to rule infection -Urine toxicology -Glu 498, pH 7.09, HCO3 6, Acetone +2, anion gap open (29) -IV NS + KCl started -Insulin drip started at 0.1U/kg/hr -Fingerstick glu q1h -Monitor CBC -Serial BMPs to monitor glucose and anion gap, as well as electrolytes -Once anion gap closes, insulin drip may be bridged to SQ insulin -Protonix 40mg IV daily -abdominal pain, nausea and vomiting out of proportion, but cannot totally rule out DKA as cause. -Would consider further work-up such as CT AP if symptoms persist despite improving glucose levels. #Elevated WBC, Hgb, Platelet -Will rule out infection as cause of leukocytosis, and possible trigger for DKA -Levels likely 2/2 stress reaction and hemoconcentration -CXR, UA ordered -Will continue to monitor CBC #Hyperkalemia, Hyponatremia -electrolyte abnormalities likely 2/2 elevated glucose -Will treat DKA and continue to monitor BMP -On IV NS + 20meq KCL #ILAN -BUN/Cr 15/1.5 -likely pre-renal from multiple episodes of vomiting and elevated glucose -On IV fluids -Will continue to monitor #FEN -IV NS +20meq KCl -Hyponatremia, Hypokalemia -BMP q3h -NPO #Prophylaxis -Lovenox 40mg sq daily -Protonix 40mg IV daily #Disposition -full code -admit to ICU for closer monitoring Visit type - Emergency Visit Emergency Visit: Yes ED Registration Date: 03/29/18 Care time: The patient presented to the Emergency Department on the above date and was hospitalized for further evaluation of their emergent condition. - New Patient This patient is new to me today: Yes Date on this admission: 03/29/18 - Critical Care Critical Care patient: Yes Total Critical Care Time (in minutes): 40 Critical Care Statement: The care of this patient involved high complexity decision making to prevent further life threatening deterioration of the patient 's condition and/or to evaluate & treat vital organ system(s) failure or risk of failure.
[2018-03-29 06:49] LABS: ANION GAP 28 MMOL/L (8-16); BLOOD UREA NITROGEN 17 mg/dL (7-18); CALCIUM 9.1 mg/dL (8.5-10.1); CHLORIDE 98 mmol/L (98-107); CO2 6 mmol/L (21-32); CREATININE 1.4 mg/dL (0.55-1.3); SODIUM 133 mmol/L (136-145)
[2018-03-29] MEDS ORDERED: KCL 10 MEQ IVPB 10 MEQ/100 ML INFUS.BAG IVPB SCH (07:00)
[2018-03-29 07:04] LABS: GLUCOSE,RANDOM 441 mg/dL (74-106)
[2018-03-29] MEDS ORDERED: morphine SULFATE 4 MG/ML VIAL IVPUSH ONE (07:33)
[2018-03-29] MEDS ORDERED: morphine SULFATE 4 MG/ML VIAL ONE (07:38)
[2018-03-29] MEDS ORDERED: D5-1/2NS+40 MEQ KCL - 40 MEQ/1,000 ML INFUS.BAG IV SCH (08:00)
[2018-03-29] MEDS: ENOXAPARIN NA (PORCINE) 40 MG/0.4 ML DISP.SYRIN SQ SCH (09:30)
--- NOTE | 2018-03-29 09:50 | PN ---
Teaching Attending Note Name of Resident: Ramone Bal ATTENDING PHYSICIAN STATEMENT I saw and evaluated the patient. I reviewed the resident's note and discussed the case with the resident. I agree with the resident's findings and plan as documented. SUBJECTIVE: Patient seen and examined in the ICU. Awake and alert. Continues to have cramp like abdominal discomfort. No CP or SOB. Remains on IV Insulin drip. A Intake & Output 03/26/18 03/27/18 03/28/18 03/29/18 23:59 23:59 23:59 23:59 Weight 235 lb Last Vital Signs Temp Pulse Resp BP Pulse Ox 98.8 F 120 H 21 H 147/92 100 03/29/18 06:22 03/29/18 08:00 03/29/18 08:00 03/29/18 08:00 03/29/18 06:23 Active Medications Chlorhexidine Gluconate (Hibiclens For Decolonization -) 1 applic TP HS PENDING SALE TO [facility] Enoxaparin Sodium (Lovenox -) 40 mg SQ DAILY PENDING SALE TO [facility] Last Admin: 03/29/18 09:30 Dose: 40 mg Insulin Human Regular 100 (units/ Sodium Chloride) 100 mls @ 10.65 mls/hr IVPB TITR PENDING SALE TO [facility]; Protocol Last Admin: 03/29/18 04:37 Dose: 0.1 units/kg/hr, 10.65 mls/hr Dextrose/Sodium Chloride (D5-1/2ns+40 Meq Kcl -) 40 meq in 1,000 mls @ 200 mls/ hr IV ASDIR PENDING SALE TO [facility] Last Admin: 03/29/18 07:53 Dose: 200 mls/hr Mupirocin (Bactroban Ointment (For Decolonization) -) 1 applic NS BID PENDING SALE TO [facility] Stop: 04/03/18 09:59 Pantoprazole Sodium (Protonix Iv) 40 mg IVPUSH DAILY PENDING SALE TO [facility] Last Admin: 03/29/18 09:30 Dose: 40 mg GENERAL: Awake, alert, and fully oriented, mildly uncomfortable HEAD: Normal with no signs of trauma. EYES: Pupils equal, round and reactive to light, extraocular movements intact, ENT: Moist mucous membranes. NECK: Normal range of motion, supple LUNGS: Breath sounds equal, clear to auscultation bilaterally. No wheezes, and no crackles. No accessory muscle use. HEART: Sinus tachy, S1 and S2, without murmur, rub or gallop. ABDOMEN: Obese, Soft, left lower and med epigastric tenderness , normoactive bowel sounds, no guarding, no rebound, MUSCULOSKELETAL: Normal range of motion at all joints. No bony deformities or tenderness. No CVA tenderness. UPPER EXTREMITIES: 2+ pulses, warm, well-perfused. No cyanosis. No clubbing. Cap refill <2 seconds. No peripheral edema. LOWER EXTREMITIES: 2+ pulses, warm, well-perfused. No calf tenderness. No peripheral edema. NEUROLOGICAL: Non-focal PSYCHIATRIC: Cooperative. Good eye contact. Appropriate mood and affect. SKIN: Warm, dry, normal turgor, no rashes or lesions noted. Laboratory Results - last 24 hr 03/29/18 03/29/18 03/29/18 02:51 02:51 04:15 WBC 15.7 H RBC 6.11 H Hgb 18.1 H Hct 53.1 H MCV 86.9 MCH 29.6 MCHC 34.1 RDW 13.2 Plt Count 418 D MPV 10.6 D Absolute Neuts (auto) 11.9 H Neutrophils % 76.0 D Lymphocytes % 17.9 D Monocytes % 5.5 Eosinophils % 0.1 D Basophils % 0.5 Nucleated RBC % 0 Anticoagulation Therapy No Result Required. Puncture Site Left radial ABG pH 7.09 L* D ABG pCO2 at Pt Temp 9.7 L* D ABG pO2 at Pt Temp 127.0 H D ABG HCO3 2.8 L* ABG O2 Sat (Measured) 96.8 ABG O2 Content 23.0 H ABG Base Excess -28.3 L* Akshat Test Positive Carboxyhemoglobin 1.0 Methemoglobin 1.1 O2 Delivery Device No Result Required. Oxygen Flow Rate 21% Vent Mode No Result Required. Vent Rate No Result Required. Mechanical Rate No Result Required. Pressure Support Vent No Result Required. Sodium 127 L Potassium 5.2 H Chloride 93 L Carbon Dioxide 6 L Anion Gap 29 H BUN 15 Creatinine 1.5 H Creat Clearance w eGFR 54.59 Random Glucose 498 H* Calcium 9.6 Total Bilirubin 0.7 AST 16 ALT 24 Alkaline Phosphatase 96 Total Protein 8.8 H Albumin 4.8 Lipase 50 L Acetone, Qual Positive moderate 2+ IMP: DKA ILAN (?) AGE Leukocytosis IVF IV Insulin drip Follow AG Strict I & O PO as tolerated Replete electrolytes as indicated VTE prophylaxis Trial of PPI Toxicology screen Follow WBC Endocrine evaluation: Dr Morillo ICU monitoring Dr Sanders Critical care time spent in reviewing chart, evaluating patient and formulating plan - 36 minutes. - Critical Care Critical Care patient: Yes Total Critical Care Time (in minutes): 45 Critical Care Statement: The care of this patient involved high complexity decision making to prevent further life threatening deterioration of the patient 's condition and/or to evaluate & treat vital organ system(s) failure or risk of failure.
[2018-03-29] MEDS ORDERED: ADENOSINE 6 MG/2 ML VIAL IVPUSH ONE ×2 (09:56→09:59)
[2018-03-29] MEDS ORDERED: HYDROmorphone HCl 2 MG/ML VIAL IVPUSH ONE (10:47)
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
[2018-03-29 11:04] LABS: ANION GAP 24 MMOL/L (8-16); BLOOD UREA NITROGEN 15 mg/dL (7-18); CALCIUM 9.1 mg/dL (8.5-10.1); CHLORIDE 106 mmol/L (98-107); CO2 5 mmol/L (21-32); CREATININE 1.3 mg/dL (0.55-1.3); GLUCOSE,RANDOM 281 mg/dL (74-106); MAGNESIUM 2.2 mg/dL (1.8-2.4); PHOSPHOROUS 2.6 mg/dL (2.5-4.9); POTASSIUM 4.5 mmol/L (3.5-5.1); SODIUM 135 mmol/L (136-145)
[2018-03-29] MEDS: MUPIROCIN 2% TOPICAL OINTMENT FOR DECOLONIZATION NS SCH ×2 (12:05→23:09)
--- NOTE | 2018-03-29 12:42 | EKG ---
Test Reason : Blood Pressure : / mmHG Vent. Rate : 129 BPM Atrial Rate : 129 BPM P-R Int : 142 ms QRS Dur : 090 ms QT Int : 308 ms P-R-T Axes : 082 -24 069 degrees QTc Int : 451 ms SINUS TACHYCARDIA BIATRIAL ENLARGEMENT NONSPECIFIC T WAVE ABNORMALITY ABNORMAL ECG Confirmed by MD BENNY, MIKE ([id number]) on 03/29/2018 12:42:17 PM Referred By: Confirmed By:MIKE ZAPATA MD
[2018-03-29 15:07] LABS: BASO % 0.2 % (0-2.0); HEMOGLOBIN 16.2 GM/dL (11.7-16.9); LYMPH % 10.9 % (8-40); MCH 29.7 pg (25.7-33.7); MCHC 34.5 g/dl (32.0-35.9); MEAN PLT VOLUME 10.4 fl (7.5-11.1); MONO % 6.3 % (3.8-10.2); NEUT % 82.6 % (42.8-82.8); PLATELET COUNT 347 K/MM3 (134-434); RBC 5.46 M/mm3 (4.00-5.60); RDW 13.2 % (11.9-15.9); WHITE BLOOD COUNT 21.4 K/mm3 (4.0-10.0)
--- NOTE | 2018-03-29 15:19 | CONSULT ---
Consult Consult Specialty:: Endocrinology Referred by:: Rene Cifuentes MD Reason for Consultation:: DKA - History of Present Illness Chief Complaint: Nausea, vomiting History of Present Illness: This is a 32 year old male with h/o T2DM on Insulin and Metformin at home, HLD , back pain presented with abdominal pain, nausea and vomiting, that started 4 days ago. Patient was seen at the ED for the same complaints 4 days ago. He was worked up to rule out DKA. At that time he had a normal anion gap and normal ph, acute gastroenteritis was considered and he was given 2L IVF and was sent home. Pt found to have Glu 498, pH 7.09, HCO3 6, Acetone +2. Pt treated with IVF, Kcl, IV insulin. Pt still acidotic with CO2 of 5 and A gap of 24. Pt last seen in the office on December when his blood sugar was "Hi". Pt was advised to go to ED which he refused. Treated with Insulin in the office with f/ u instruction to go to ED if blood sugar persists to be high and come for f/u in 2 days. Pt hasn't come back for f/u. Takes Lantus 60 units daily at home with Novolog Ss coverage and Metformin 1000mg BID. Last dose of Insulin about 5 days ago. ( - History Source History Provided By: Patient, Medical Record - Past Medical History Cardio/Vascular: Yes: Hyperlipdemia Endocrine: Yes: Diabetes Mellitus - Alcohol/Substance Use Hx Alcohol Use: No - Smoking History Smoking history: Never smoked Have you smoked in the past 12 months: No Aproximately how many cigarettes per day: 10 Home Medications - Allergies Allergies/Adverse Reactions: Allergies Allergy/AdvReac Type Severity Reaction Status Date / Time No Known Allergies Allergy Verified 03/29/18 02:41 - Home Medications Home Medications: Ambulatory Orders Tizanidine HCl 2 mg PO ASDIR 06/01/17 Insulin Glargine,Hum.rec.anlog [Lantus Solostar PEN (NF)] 1 units SQ ASDIR 03/25 Insulin Sliding Scale [Novolog Vial Sliding Scale -] 0 units SQ ACHS 03/25/18 Meloxicam [Mobic] 15 mg PO ASDIR 03/25/18 Atorvastatin Ca [Lipitor] 20 mg PO HS 03/29/18 Oxycodone HCl/Acetaminophen [Percocet 10-325 mg Tablet] 1 each PO PRN 03/29/18 Family Disease History - Family Disease History Family Disease History: Diabetes: Mother Review of Systems - Review of Systems Constitutional: reports: Loss of Appetite, Malaise, Weakness Eyes: reports: No Symptoms HENT: reports: No Symptoms Neck: reports: No Symptoms Cardiovascular: reports: No Symptoms Respiratory: reports: No Symptoms Gastrointestinal: reports: Nausea, Vomiting Genitourinary: reports: No Symptoms Breasts: reports: No Symptoms Reported Musculoskeletal: reports: Back Pain Neurological: reports: No Symptoms Endocrine: reports: No Symptoms Physical Exam Vital Signs: Vital Signs Temperature 98.4 F 03/29/18 14:00 Pulse Rate 100 H 03/29/18 14:00 Respiratory Rate 12 03/29/18 14:00 Blood Pressure 133/84 03/29/18 14:00 O2 Sat by Pulse Oximetry (%) 100 03/29/18 08:55 Constitutional: Yes: No Distress, Calm Eyes: Yes: Conjunctiva Clear, EOM Intact HENT: Yes: Atraumatic, Normocephalic Neck: Yes: Supple, Trachea Midline Cardiovascular: Yes: Regular Rate and Rhythm Respiratory: Yes: Regular, CTA Bilaterally Gastrointestinal: Yes: Normal Bowel Sounds, Soft, Tenderness, Epigastrium Musculoskeletal: Yes: WNL Extremities: Yes: WNL Edema: No Neurological: Yes: Alert, Oriented Problem List - Problems (1) DKA (diabetic ketoacidoses) Code(s): E13.10 - OTH DIABETES MELLITUS WITH KETOACIDOSIS WITHOUT COMA (2) Vomiting Code(s): R11.10 - VOMITING, UNSPECIFIED Assessment/Plan AP: T2DM with DKA: DKA probably secondary to intercurrent illness and lack of Insulin. Nausea/Vomiting: ? Cause, IV hydration Insulin drip to maintain blood sugar 120 to 200 Continue D5 with KCl Increase rate of IVF or change to D10 if necessary to maintain blood sugar >120 until Acidosis resolves and A Gap normalizes Electrolyte replacement as necessary GI consult Case discussed with housestaff.
[2018-03-29 15:47] LABS: ANION GAP 13 MMOL/L (8-16); BLOOD UREA NITROGEN 12 mg/dL (7-18); CALCIUM 8.8 mg/dL (8.5-10.1); CHLORIDE 109 mmol/L (98-107); CO2 12 mmol/L (21-32); CREATININE 1.2 mg/dL (0.55-1.3); GLUCOSE,RANDOM 221 mg/dL (74-106); PHOSPHOROUS 1.3 mg/dL (2.5-4.9); POTASSIUM 4.6 mmol/L (3.5-5.1); SODIUM 134 mmol/L (136-145)
[2018-03-29 16:49] LABS: ANISOCYTOSIS 0; MACROCYTOSIS 0; PLATELET ESTIMATE NORMAL
[2018-03-29] MEDS ORDERED: SODIUM PHOSPHATE - 30 MM in SODIUM CHLORIDE 250 ML IVPB ONE (17:00)
[2018-03-29] MEDS ORDERED: PT OWN MED DRAWER 7, Y5N ONE (17:44)
[2018-03-29] MEDS ORDERED: DEXTROSE 5%-NORMAL SALINE 1,000 ML IV SCH (18:15)
--- NOTE | 2018-03-29 18:47 | HOSP ---
Subjective - Review of Symptoms Events since last encounter: Patient is a 32yo male presented with DKA, has had lower abdominal pain and was given IVF x 5 liters. Vital Signs Temperature 99.3 F 03/29/18 18:00 Pulse Rate 99 H 03/29/18 18:00 Respiratory Rate 14 03/29/18 18:00 Blood Pressure 129/89 03/29/18 18:00 O2 Sat by Pulse Oximetry (%) 100 03/29/18 08:55 Initial Vital Signs Temp Pulse Resp BP Pulse Ox 97.3 F L 121 H 21 H 136/81 100 03/29/18 02:19 03/29/18 02:19 03/29/18 02:19 03/29/18 02:19 03/29/18 02:19 GENERAL: Awake, alert, and fully oriented, uncomfortable, in NAD, HEAD: Normal with no signs of trauma. EYES: PERRLA, EOMI, sclera anicteric, conjunctiva clear. EARS, NOSE, THROAT:Dry mucous membranes. CHEST: CTA BL ,Breath sounds equal/. HEART: Regular rate and rhythm, normal S1 and S2 without murmur, rub or gallop. ABDOMEN: Soft, mild diffuse tenderness lower abdomen, not distended, normoactive bowel sounds. EXTREMITIES: 2+ pulses, warm, well-perfused. No peripheral edema. SKIN: Warm, dry, normal turgor, no rashes or lesions noted. CBCD WBC 21.4 K/mm3 (4.0-10.0) H 03/29/18 14:46 RBC 5.46 M/mm3 (4.00-5.60) 03/29/18 14:46 Hgb 16.2 GM/dL (11.7-16.9) 03/29/18 14:46 Hct 47.0 % (35.4-49) 03/29/18 14:46 MCV 86.0 fl (80-96) 03/29/18 14:46 MCHC 34.5 g/dl (32.0-35.9) 03/29/18 14:46 RDW 13.2 % (11.9-15.9) 03/29/18 14:46 Plt Count 347 K/MM3 (134-434) 03/29/18 14:46 MPV 10.4 fl (7.5-11.1) 03/29/18 14:46 CMP Sodium 134 mmol/L (136-145) L 03/29/18 14:46 Potassium 4.6 mmol/L (3.5-5.1) 03/29/18 14:46 Chloride 109 mmol/L (98-107) H 03/29/18 14:46 Carbon Dioxide 12 mmol/L (21-32) L 03/29/18 14:46 Anion Gap 13 MMOL/L (8-16) 03/29/18 14:46 BUN 12 mg/dL (7-18) 03/29/18 14:46 Creatinine 1.2 mg/dL (0.55-1.3) 03/29/18 14:46 Creat Clearance w eGFR > 60 (>60) 03/29/18 14:46 Random Glucose 221 mg/dL (74-106) H 03/29/18 14:46 Calcium 8.8 mg/dL (8.5-10.1) 03/29/18 14:46 Total Bilirubin 0.7 mg/dL (0.2-1) 03/29/18 02:51 AST 16 U/L (15-37) 03/29/18 02:51 ALT 24 U/L (13-61) 03/29/18 02:51 Alkaline Phosphatase 96 U/L (45-117) 03/29/18 02:51 Total Protein 8.8 g/dl (6.4-8.2) H 03/29/18 02:51 Albumin 4.8 g/dl (3.4-5.0) 03/29/18 02:51 CARDIAC ENZYMES Troponin I < 0.02 ng/ml (0.00-0.05) 03/29/18 05:31 Current Medications Generic Name Dose Route Start Last Admin Trade Name Freq PRN Reason Stop Dose Admin Chlorhexidine Gluconate 1 applic 03/29/18 22:00 Hibiclens For Decolonization - TP HS PAOLA Enoxaparin Sodium 40 mg 03/29/18 10:00 03/29/18 09:30 Lovenox - SQ 40 mg DAILY [facility] Administration Insulin Human Regular 100 100 mls @ 10.65 mls/hr 03/29/18 04:00 03/29/18 17: 41 units/ Sodium Chloride IVPB 0 units/kg/hr TITR [facility] 0 mls/hr Titration Protocol 0.1 UNITS/KG/HR Dextrose/Sodium Chloride 40 meq in 1,000 mls @ 200 mls/hr 03/29/18 08:00 08/10 07:53 D5-1/2ns+40 Meq Kcl - IV 200 mls/hr ASDIR [facility] Administration Sodium Phosphate 30 mm/ Sodium 260 mls @ 43.333 mls/hr 03/29/18 17:00 17:40 Chloride IVPB 03/29/18 22:59 43.333 mls/hr ONCE ONE Administration Dextrose/Sodium Chloride 1,000 mls @ 200 mls/hr 03/29/18 18:15 03/29/18 18:17 D5-Ns - IV 200 mls/hr ASDIR [facility] Administration Ceftriaxone Sodium 1 gm/ 50 mls @ 100 mls/hr 03/29/18 18:45 Dextrose IVPB DAILY [facility] Protocol Metronidazole 500 mg in 100 mls @ 100 mls/hr 03/29/18 18:45 Flagyl 500mg Premixed Ivpb - IVPB Q8H-IV [facility]A Mupirocin 1 applic 03/29/18 10:00 03/29/18 12:05 Bactroban Ointment (For Decolonization) - NS 04/03/18 09:59 1 applic BID PAOLA Administration Home Medications Medication Instructions Recorded Tizanidine HCl 2 mg PO ASDIR 06/01/17 Insulin Glargine,Hum.rec.anlog 1 units SQ ASDIR 03/25/18 [Lantus Solostar PEN (NF)] Insulin Sliding Scale [Novolog 0 units SQ [facility] 03/25/18 Vial Sliding Scale -] Meloxicam [Mobic] 15 mg PO ASDIR 03/25/18 Atorvastatin Ca [Lipitor] 20 mg PO HS 03/29/18 Oxycodone HCl/Acetaminophen 1 each PO PRN 03/29/18 [Percocet 10-325 mg Tablet] A/P: Patient is a 32 year old male with past medical history of IDDM, presented with abdominal pain, nausea and vomiting, that started 4 days ago. #T2DM with DKA: on Insulin drip continue, adjust accordingly, titrate up and down as needed, bmp q4hr, with BGms. patient is in ICU , continue to monitor, IVF continue. DKa possibly due to gastroenteristis, Insulin drip to maintain blood sugar 120 to 200. Increase rate of IVF or change to D10 if necessary to maintain blood sugar >120 until Acidosis resolves and A Gap closes. # Acute leukocytosis monitor #ILAN continue IVF . improving #Electrolyte replacement as necessary DVt Px; Lovenox sq Physical Examination Vital Signs: Vital Signs Temperature 98.4 F 03/29/18 14:00 Pulse Rate 99 H 03/29/18 18:00 Respiratory Rate 14 03/29/18 18:00 Blood Pressure 129/89 03/29/18 18:00 O2 Sat by Pulse Oximetry (%) 100 03/29/18 08:55 Labs: CBC, BMP 03/29/18 14:46 03/29/18 14:46
[2018-03-29] MEDS ORDERED: DEXTROSE 5%-WATER - 50 ML IVPB ONE (19:05)
[2018-03-29] MEDS ORDERED: cefTRIAXone SODIUM 1 GM VIAL ONE (19:05)
[2018-03-29] MEDS: CEFTRIAXONE 1 GM in DEXTROSE 5%-WATER - 50 ML IVPB SCH (19:11)
[2018-03-29 19:42] LABS: COCAINE, UR NEGATIVE ng/ml (CUTOFF=300); METHADONE, UR NEGATIVE ng/ml (CUTOFF=300); PHENCYCLIDINE,URINE NEGATIVE ng/ml (CUTOFF=25); URINE AMPHETAMINES NEGATIVE ng/ml (CUTOFF=500); URINE BARBITURATES NEGATIVE ng/ml (CUTOFF=200); URINE BENZODIAZEPINES NEGATIVE ng/ml (CUTOFF=200)
[2018-03-29 19:45] LABS: OPIATES, URI POSITIVE ng/ml (CUTOFF=300)
[2018-03-29 20:08] LABS: ANION GAP 14 MMOL/L (8-16); BLOOD UREA NITROGEN 12 mg/dL (7-18); CALCIUM 8.8 mg/dL (8.5-10.1); CHLORIDE 111 mmol/L (98-107); CO2 11 mmol/L (21-32); GLUCOSE,RANDOM 253 mg/dL (74-106); POTASSIUM 4.6 mmol/L (3.5-5.1); SODIUM 136 mmol/L (136-145)
[2018-03-29] MEDS: CHLORHEXIDINE GLUCONATE 4% CLEANSER FOR DECOLONIZATION TP SCH (23:10)
[2018-03-30 01:17] LABS: ANION GAP 14 MMOL/L (8-16); BLOOD UREA NITROGEN 12 mg/dL (7-18); CALCIUM 8.6 mg/dL (8.5-10.1); CHLORIDE 107 mmol/L (98-107); CO2 14 mmol/L (21-32); CREATININE 1.1 mg/dL (0.55-1.3); PHOSPHOROUS 2.2 mg/dL (2.5-4.9); POTASSIUM 3.7 mmol/L (3.5-5.1); SODIUM 136 mmol/L (136-145)
[2018-03-30 01:18] LABS: GLUCOSE,RANDOM 343 mg/dL (74-106)
[2018-03-30] MEDS ORDERED: D5-1/2NS+40 MEQ KCL - 40 MEQ/1,000 ML INFUS.BAG IV SCH (01:30)
[2018-03-30] MEDS ORDERED: HYDROmorphone HCl 2 MG/ML VIAL IVPUSH ONE (04:36)
[2018-03-30 06:05] LABS: BASO % 0.6 % (0-2.0); EOS % 0.1 % (0-4.5); HEMATOCRIT 45.7 % (35.4-49); HEMOGLOBIN 15.4 GM/dL (11.7-16.9); LYMPH % 13.1 % (8-40); MCH 28.5 pg (25.7-33.7); MCHC 33.6 g/dl (32.0-35.9); MEAN CELL VOLUME 84.8 fl (80-96); MEAN PLT VOLUME 10.1 fl (7.5-11.1); MONO % 8.1 % (3.8-10.2); NEUT % 78.1 % (42.8-82.8); PLATELET COUNT 281 K/MM3 (134-434); RBC 5.39 M/mm3 (4.00-5.60); RDW 12.9 % (11.9-15.9); WHITE BLOOD COUNT 12.4 K/mm3 (4.0-10.0)
[2018-03-30 06:29] LABS: ALBUMIN 3.6 g/dl (3.4-5.0); ALK PHOS 70 U/L (45-117); ANION GAP 10 MMOL/L (8-16); BILIRUBIN,TOTAL 0.4 mg/dL (0.2-1); BLOOD UREA NITROGEN 11 mg/dL (7-18); CALCIUM 8.7 mg/dL (8.5-10.1); CHLORIDE 110 mmol/L (98-107); CO2 19 mmol/L (21-32); CREATININE 0.8 mg/dL (0.55-1.3); GLUCOSE,RANDOM 206 mg/dL (74-106); MAGNESIUM 2.1 mg/dL (1.8-2.4); PHOSPHOROUS 1.2 mg/dL (2.5-4.9); POTASSIUM 3.5 mmol/L (3.5-5.1); SGOT/AST 3 U/L (15-37); SGPT/ALT 21 U/L (13-61); SODIUM 140 mmol/L (136-145); TOT PROT 6.8 g/dl (6.4-8.2)
[2018-03-30] MEDS ORDERED: cefTRIAXone SODIUM 1 GM VIAL ONE (08:43)
[2018-03-30] MEDS ORDERED: DEXTROSE 5%-WATER - 50 ML IVPB ONE (08:43)
[2018-03-30] MEDS: KCL 10 MEQ IVPB 10 MEQ/100 ML INFUS.BAG IVPB SCH ×3 (08:45→10:14)
--- NOTE | 2018-03-30 08:45 | CON.GI ---
Consult Consult Specialty:: GI Referred by:: Hospitalist Service Reason for Consultation:: Abd pain - History of Present Illness Chief Complaint: Abd pain, elevated WBC History of Present Illness: 32 y.o. M with DM, admitted with abdominal pain, DKA, elevated WBC. Pain localizes to RLQ. Sonogram of liver/GB showed hyperechoic lesions around liver, NOT SEEN on prior sono or on (noncontrast) prior chest CT. CBCD WBC 12.4 K/mm3 (4.0-10.0) H 03/30/18 05:15 RBC 5.39 M/mm3 (4.00-5.60) 03/30/18 05:15 Hgb 15.4 GM/dL (11.7-16.9) 03/30/18 05:15 Hct 45.7 % (35.4-49) 03/30/18 05:15 MCV 84.8 fl (80-96) 03/30/18 05:15 MCHC 33.6 g/dl (32.0-35.9) 03/30/18 05:15 RDW 12.9 % (11.9-15.9) 03/30/18 05:15 Plt Count 281 K/MM3 (134-434) 03/30/18 05:15 MPV 10.1 fl (7.5-11.1) 03/30/18 05:15 CMP Sodium 140 mmol/L (136-145) 03/30/18 05:15 Potassium 3.5 mmol/L (3.5-5.1) 03/30/18 05:15 Chloride 110 mmol/L (98-107) H 03/30/18 05:15 Carbon Dioxide 19 mmol/L (21-32) L 03/30/18 05:15 Anion Gap 10 MMOL/L (8-16) 03/30/18 05:15 BUN 11 mg/dL (7-18) 03/30/18 05:15 Creatinine 0.8 mg/dL (0.55-1.3) 03/30/18 05:15 Creat Clearance w eGFR > 60 (>60) 03/30/18 05:15 Calcium 8.7 mg/dL (8.5-10.1) 03/30/18 05:15 Total Bilirubin 0.4 mg/dL (0.2-1) 03/30/18 05:15 AST 3 U/L (15-37) L 03/30/18 05:15 ALT 21 U/L (13-61) 03/30/18 05:15 Alkaline Phosphatase 70 U/L (45-117) 03/30/18 05:15 Total Protein 6.8 g/dl (6.4-8.2) 03/30/18 05:15 Albumin 3.6 g/dl (3.4-5.0) 03/30/18 05:15 - History Source History Provided By: Patient, Medical Record Limitations to Obtaining History: No Limitations - Past Medical History Cardio/Vascular: Yes: Hyperlipdemia Endocrine: Yes: Diabetes Mellitus - Alcohol/Substance Use Hx Alcohol Use: No - Smoking History Smoking history: Never smoked Have you smoked in the past 12 months: No Aproximately how many cigarettes per day: 10 Home Medications - Allergies Allergies/Adverse Reactions: Allergies Allergy/AdvReac Type Severity Reaction Status Date / Time No Known Allergies Allergy Verified 03/29/18 02:41 - Home Medications Home Medications: Ambulatory Orders Tizanidine HCl 2 mg PO ASDIR 06/01/17 Insulin Glargine,Hum.rec.anlog [Lantus Solostar PEN (NF)] 1 units SQ ASDIR 03/25 Insulin Sliding Scale [Novolog Vial Sliding Scale -] 0 units SQ ACHS 03/25/18 Meloxicam [Mobic] 15 mg PO ASDIR 03/25/18 Atorvastatin Ca [Lipitor] 20 mg PO HS 03/29/18 Oxycodone HCl/Acetaminophen [Percocet 10-325 mg Tablet] 1 each PO PRN 03/29/18 Family Disease History - Family Disease History Family Disease History: Diabetes: Mother Physical Exam-GI Vital Signs: Vital Signs Temperature 99.3 F 03/30/18 02:00 Pulse Rate 82 03/30/18 08:00 Respiratory Rate 14 03/30/18 08:00 Blood Pressure 118/85 03/30/18 08:00 O2 Sat by Pulse Oximetry (%) 100 03/29/18 19:40 ...Palpate: Yes: Tenderness (RLQ tenderness present.) Labs: CBC, BMP 03/30/18 05:15 03/30/18 05:15 Imaging - Results Ultrasound: Report Reviewed, Image Reviewed Problem List - Problems (1) Abdominal pain in male Code(s): R10.9 - UNSPECIFIED ABDOMINAL PAIN Assessment/Plan The constellation of abdominal pain, elevated WBC, and liver lesions suggests a perforated appendix with liver abscesses. Case discussed with resident. To obtain CT with oral and IV contrast. Surgical consult.
[2018-03-30] MEDS: ENOXAPARIN NA (PORCINE) 40 MG/0.4 ML DISP.SYRIN SQ SCH (09:29)
[2018-03-30] MEDS: MUPIROCIN 2% TOPICAL OINTMENT FOR DECOLONIZATION NS SCH ×2 (09:35→22:31)
[2018-03-30] MEDS: CEFTRIAXONE 1 GM in DEXTROSE 5%-WATER - 50 ML IVPB SCH (09:36)
[2018-03-30] MEDS ORDERED: HYDROmorphone HCL CARPU-JECT 2 MG/1 ML DISP.SYRIN IVPUSH PRN (09:42)
--- NOTE | 2018-03-30 09:48 | PN ---
Physical Exam: SUBJECTIVE: Patient seen and examined at bedside. Pt complaining of abd pain, nausea, and back pain overnight. Has not had bowel movement yet. Denies chest pain and shortness of breath. OBJECTIVE: Vital Signs Temperature 99.3 F 03/30/18 02:00 Pulse Rate 82 03/30/18 08:00 Respiratory Rate 14 03/30/18 08:00 Blood Pressure 118/85 03/30/18 08:00 O2 Sat by Pulse Oximetry (%) 100 03/29/18 19:40 GENERAL: AAOx3. HEENT: AT/NC. EOMI. REI. Dry mucus membranes. NECK: Supple, no LAD/JVD. LUNGS: CTA B/L. No wheezes heard. HEART: RRR. Normal S1, S2. ABDOMEN: Soft. RLQ abd tenderness to palpation. +epigastric tenderness. +BS in all 4Qs. EXTREMITIES: 2+ pulses, warm, well-perfused, no peripheral edema b/l. NEUROLOGICAL: Facial symmetry noted. PSYCH: Normal mood, normal affect. SKIN: Warm, dry, normal turgor, no rashes or lesions noted CBCD WBC 12.4 K/mm3 (4.0-10.0) H 03/30/18 05:15 RBC 5.39 M/mm3 (4.00-5.60) 03/30/18 05:15 Hgb 15.4 GM/dL (11.7-16.9) 03/30/18 05:15 Hct 45.7 % (35.4-49) 03/30/18 05:15 MCV 84.8 fl (80-96) 03/30/18 05:15 MCHC 33.6 g/dl (32.0-35.9) 03/30/18 05:15 RDW 12.9 % (11.9-15.9) 03/30/18 05:15 Plt Count 281 K/MM3 (134-434) 03/30/18 05:15 MPV 10.1 fl (7.5-11.1) 03/30/18 05:15 CMP Sodium 140 mmol/L (136-145) 03/30/18 05:15 Potassium 3.5 mmol/L (3.5-5.1) 03/30/18 05:15 Chloride 110 mmol/L (98-107) H 03/30/18 05:15 Carbon Dioxide 19 mmol/L (21-32) L 03/30/18 05:15 Anion Gap 10 MMOL/L (8-16) 03/30/18 05:15 BUN 11 mg/dL (7-18) 03/30/18 05:15 Creatinine 0.8 mg/dL (0.55-1.3) 03/30/18 05:15 Creat Clearance w eGFR > 60 (>60) 03/30/18 05:15 Calcium 8.7 mg/dL (8.5-10.1) 03/30/18 05:15 Total Bilirubin 0.4 mg/dL (0.2-1) 03/30/18 05:15 AST 3 U/L (15-37) L 03/30/18 05:15 ALT 21 U/L (13-61) 03/30/18 05:15 Alkaline Phosphatase 70 U/L (45-117) 03/30/18 05:15 Total Protein 6.8 g/dl (6.4-8.2) 03/30/18 05:15 Albumin 3.6 g/dl (3.4-5.0) 03/30/18 05:15 Active Medications Chlorhexidine Gluconate (Hibiclens For Decolonization -) 1 applic TP HS [facility] Last Admin: 03/29/18 23:10 Dose: Not Given Enoxaparin Sodium (Lovenox -) 40 mg SQ DAILY [facility] Last Admin: 03/30/18 09:29 Dose: 40 mg Hydromorphone HCl (Dilaudid Injection -) 1 mg IVPUSH Q6H PRN PRN Reason: PAIN LEVEL 7 - 10 Ceftriaxone Sodium 1 gm/ (Dextrose) 50 mls @ 100 mls/hr IVPB DAILY [facility]; Protocol Last Admin: 03/30/18 09:36 Dose: 100 mls/hr Metronidazole (Flagyl 500mg Premixed Ivpb -) 500 mg in 100 mls @ 100 mls/hr IVPB Q8H-IV [facility] Last Admin: 03/30/18 09:30 Dose: 100 mls/hr Potassium Chloride (Potassium Chloride 10 Meq Premix Ivpb -) 10 meq in 100 mls @ 100 mls/hr IVPB Q60M [facility] Stop: 03/30/18 10:14 Last Admin: 03/30/18 09:37 Dose: 100 mls/hr Insulin Aspart (Novolog Vial Sliding Scale -) 1 vial SQ ACHS [facility]; Protocol Mupirocin (Bactroban Ointment (For Decolonization) -) 1 applic NS BID [facility] Stop: 04/03/18 09:59 Last Admin: 03/30/18 09:35 Dose: 1 applic CONSULTS: GI- Dr. Schmidt Endo- Dr. Brunoa Surg- Dr. Dockery IMAGING: * Abd U/S: No gallstones or acute kenneth. Slightl dense and coarse echotexture of liver suggestive of mild fatty infiltration vs. hepatoceellular dz. Echogenic densities in liver, largest 1.5 0.9 cm. * CXR: No acute chest pathology. * CTAP: pending ASSESSMENT/PLAN: 32M with past medical history of IDDM, presented with abdominal pain, nausea and vomiting, that started 4 days ago. #Diabetic Ketoacidosis; Resolved. May be precipitated by infection. -Glu 206, AG 10; gap closed with improved glucose -BGMs ACHS, ISS ACHS -Utox +opiates, +MJ -Endo consult; f/u recs -Concern for perforated appendix w/ liver absess per GI, surg consulted; f/u recs #Abdominal pain -Per GI, abd pain, elevated WBC, liver lesions suggest perforated appendix w/ liver abscess; CTAP w/ oral and IV contrast ordered. Rec surg consult. -Dilaudid 1 mg IVP Q6H for pain -NPO for now, may advance diet after surg eval #Elevated WBC; 15.7 > 21.4 > 12.4. R/o infection as possible trigger for DKA -CXR/UA neg. -ABD U/S noted above, concern for perf appy + liver abscess; f/u surg recs #Hyperkalemia, Hyponatremia. Resolved. Na 140, K 3.5. -KCl 10 Meq IVPB x 3 bags -On IV NS + 20meq KCL -Replete PRN #ILAN; Resolved. Likely prerenal from multiple vomiting episodes and elevated glucose. -BUN/Cr 11/0.8 -IVf for hydration -recheck BMP #FEN -LR @ 125 -recheck lytes in AM (Na, K) -NPO #Prophylaxis -Lovenox 40mg sq daily -Protonix 40mg IV daily #Disposition -full code -cont to monitor in ICU Visit type - Emergency Visit Emergency Visit: Yes ED Registration Date: 03/29/18 Care time: The patient presented to the Emergency Department on the above date and was hospitalized for further evaluation of their emergent condition. - New Patient This patient is new to me today: Yes Date on this admission: 03/30/18 - Critical Care Critical Care patient: Yes Total Critical Care Time (in minutes): 40 Critical Care Statement: The care of this patient involved high complexity decision making to prevent further life threatening deterioration of the patient 's condition and/or to evaluate & treat vital organ system(s) failure or risk of failure.
[2018-03-30] MEDS ORDERED: LACTATED RINGERS SOLUTION 1,000 ML/1,000 ML INFUS.BAG IV SCH (10:00)
[2018-03-30] MEDS ORDERED: HYDROmorphone HCl 2 MG/ML VIAL IVPUSH PRN (10:13)
--- NOTE | 2018-03-30 10:14 | PN ---
Teaching Attending Note Name of Resident: Gerard Kennedy ATTENDING PHYSICIAN STATEMENT I saw and evaluated the patient. I reviewed the resident's note and discussed the case with the resident. I agree with the resident's findings and plan as documented. SUBJECTIVE: Patient seen and examined in the ICU. Awake and alert. Persistent RLQ pain. Seen by GI. Concern for perforated appendictis. No CP or SOB. A Intake & Output 03/27/18 03/28/18 03/29/18 03/30/18 23:59 23:59 23:59 23:59 Intake Total 4005 1838 Output Total 600 600 Balance 3405 1238 Weight 235 lb Last Vital Signs Temp Pulse Resp BP Pulse Ox 99.3 F 82 14 118/85 100 03/30/18 02:00 03/30/18 08:00 03/30/18 08:00 03/30/18 08:00 03/29/18 19:40 Active Medications Chlorhexidine Gluconate (Hibiclens For Decolonization -) 1 applic TP HS [facility] Last Admin: 03/29/18 23:10 Dose: Not Given Enoxaparin Sodium (Lovenox -) 40 mg SQ DAILY [facility] Last Admin: 03/30/18 09:29 Dose: 40 mg Hydromorphone HCl (Dilaudid Injection -) 1 mg IVPUSH Q6H PRN PRN Reason: PAIN LEVEL 7 - 10 Ceftriaxone Sodium 1 gm/ (Dextrose) 50 mls @ 100 mls/hr IVPB DAILY [facility]; Protocol Last Admin: 03/30/18 09:36 Dose: 100 mls/hr Metronidazole (Flagyl 500mg Premixed Ivpb -) 500 mg in 100 mls @ 100 mls/hr IVPB Q8H-IV [facility] Last Admin: 03/30/18 09:30 Dose: 100 mls/hr Potassium Chloride (Potassium Chloride 10 Meq Premix Ivpb -) 10 meq in 100 mls @ 100 mls/hr IVPB Q60M [facility] Stop: 03/30/18 10:14 Last Admin: 03/30/18 09:37 Dose: 100 mls/hr Lactated Ringer's (Lactated Ringers Solution) 1,000 ml in 1,000 mls @ 125 mls/ hr IV ASDIR PAOLA Insulin Aspart (Novolog Vial Sliding Scale -) 1 vial SQ ACHS [facility]; Protocol Mupirocin (Bactroban Ointment (For Decolonization) -) 1 applic NS BID PAOLA Stop: 04/03/18 09:59 Last Admin: 03/30/18 09:35 Dose: 1 applic GENERAL: Awake, alert, and fully oriented, uncomfortable due to pain HEAD: Normal with no signs of trauma. EYES: Pupils equal, round and reactive to light, extraocular movements intact, ENT: Moist mucous membranes. NECK: Normal range of motion, supple LUNGS: Breath sounds equal, clear to auscultation bilaterally. No wheezes, and no crackles. No accessory muscle use. HEART: Sinus tachy, S1 and S2, without murmur, rub or gallop. ABDOMEN: Obese, Soft, Right lower and mid epigastric tenderness , (+) bowel sounds, no rebound, MUSCULOSKELETAL: Normal range of motion at all joints. No bony deformities or tenderness. No CVA tenderness. UPPER EXTREMITIES: 2+ pulses, warm, well-perfused. No cyanosis. No clubbing. Cap refill <2 seconds. No peripheral edema. LOWER EXTREMITIES: 2+ pulses, warm, well-perfused. No calf tenderness. No peripheral edema. NEUROLOGICAL: Non-focal PSYCHIATRIC: Cooperative. Good eye contact. Appropriate mood and affect. SKIN: Warm, dry, normal turgor, no rashes or lesions noted. Laboratory Results - last 24 hr 03/29/18 03/29/18 03/29/18 09:50 14:46 14:46 WBC 21.4 H RBC 5.46 Hgb 16.2 Hct 47.0 MCV 86.0 MCH 29.7 MCHC 34.5 RDW 13.2 Plt Count 347 MPV 10.4 Absolute Neuts (auto) 17.6 H Neutrophils % 82.6 Neutrophils % (Manual) 79.5 Band Neutrophils % 0.0 Lymphocytes % 10.9 D Lymphocytes % (Manual) 14.8 Monocytes % 6.3 Monocytes % (Manual) 6 Eosinophils % 0.0 D Eosinophils % (Manual) 0.0 Basophils % 0.2 Basophils % (Manual) 0.0 Myelocytes % (Man) 0 Promyelocytes % (Man) 0 Blast Cells % (Manual) 0 Nucleated RBC % 0 Metamyelocytes 0 Hypochromia 0 Platelet Estimate Normal Platelet Comment Present Polychromasia 0 Poikilocytosis 0 Anisocytosis 0 Microcytosis 0 Macrocytosis 0 Sodium 135 L 134 L Potassium 4.5 4.6 Chloride 106 109 H Carbon Dioxide 5 L 12 L Anion Gap 24 H 13 BUN 15 12 Creatinine 1.3 1.2 Creat Clearance w eGFR > 60 > 60 Random Glucose 281 H 221 H Calcium 9.1 8.8 Phosphorus 2.6 1.3 L Magnesium 2.2 2.0 Total Bilirubin AST ALT Alkaline Phosphatase Total Protein Albumin Opiates Screen Methadone Screen Barbiturate Screen Phencyclidine Screen Ur Amphetamines Screen MDMA (Ecstasy) Screen Benzodiazepines Screen Cocaine Screen U Marijuana (THC) Screen 03/29/18 03/29/18 03/30/18 17:00 18:40 00:00 WBC RBC Hgb Hct MCV MCH MCHC RDW Plt Count MPV Absolute Neuts (auto) Neutrophils % Neutrophils % (Manual) Band Neutrophils % Lymphocytes % Lymphocytes % (Manual) Monocytes % Monocytes % (Manual) Eosinophils % Eosinophils % (Manual) Basophils % Basophils % (Manual) Myelocytes % (Man) Promyelocytes % (Man) Blast Cells % (Manual) Nucleated RBC % Metamyelocytes Hypochromia Platelet Estimate Platelet Comment Polychromasia Poikilocytosis Anisocytosis Microcytosis Macrocytosis Sodium 136 136 Potassium 4.6 3.7 Chloride 111 H 107 Carbon Dioxide 11 L 14 L Anion Gap 14 14 BUN 12 12 Creatinine 1.0 1.1 Creat Clearance w eGFR > 60 > 60 Random Glucose 253 H 343 H* Calcium 8.8 8.6 Phosphorus 2.2 L Magnesium 2.0 Total Bilirubin AST ALT Alkaline Phosphatase Total Protein Albumin Opiates Screen Positive A* Methadone Screen Negative Barbiturate Screen Negative Phencyclidine Screen Negative Ur Amphetamines Screen Negative MDMA (Ecstasy) Screen Negative Benzodiazepines Screen Negative Cocaine Screen Negative U Marijuana (THC) Screen Positive A* 03/30/18 03/30/18 05:15 05:15 WBC 12.4 H RBC 5.39 Hgb 15.4 Hct 45.7 MCV 84.8 MCH 28.5 MCHC 33.6 RDW 12.9 Plt Count 281 MPV 10.1 Absolute Neuts (auto) 9.7 H Neutrophils % 78.1 Neutrophils % (Manual) Band Neutrophils % Lymphocytes % 13.1 D Lymphocytes % (Manual) Monocytes % 8.1 Monocytes % (Manual) Eosinophils % 0.1 D Eosinophils % (Manual) Basophils % 0.6 Basophils % (Manual) Myelocytes % (Man) Promyelocytes % (Man) Blast Cells % (Manual) Nucleated RBC % 0 Metamyelocytes Hypochromia Platelet Estimate Platelet Comment Polychromasia Poikilocytosis Anisocytosis Microcytosis Macrocytosis Sodium 140 Potassium 3.5 Chloride 110 H Carbon Dioxide 19 L Anion Gap 10 BUN 11 Creatinine 0.8 Creat Clearance w eGFR > 60 Random Glucose 206 H Calcium 8.7 Phosphorus 1.2 L Magnesium 2.1 Total Bilirubin 0.4 AST 3 L ALT 21 Alkaline Phosphatase 70 Total Protein 6.8 Albumin 3.6 Opiates Screen Methadone Screen Barbiturate Screen Phencyclidine Screen Ur Amphetamines Screen MDMA (Ecstasy) Screen Benzodiazepines Screen Cocaine Screen U Marijuana (THC) Screen IMP: DKA ILAN (?) AGE Leukocytosis (?) Appendicitis IVF Insulin coverage Follow AG Strict I & O PO as tolerated Replete electrolytes as indicated VTE prophylaxis PPI Endocrine evaluation: Dr Morillo For CT Abdomen / Pelvis Floor once off IV Insulin and CT is obtained Dr Sanders Critical care time spent in reviewing chart, evaluating patient and formulating plan - 36 minutes. - Critical Care Critical Care patient: Yes Total Critical Care Time (in minutes): 45 Critical Care Statement: The care of this patient involved high complexity decision making to prevent further life threatening deterioration of the patient 's condition and/or to evaluate & treat vital organ system(s) failure or risk of failure.
[2018-03-30] MEDS ORDERED: INSULIN (NOVOLOG) ASPART 100 UNITS/ML 10ML VIAL SQ ONE (10:18)
[2018-03-30] MEDS ORDERED: INSULIN SLIDING SCALE (NOVOLOG) 1 VIAL SQ SCH (11:00)
--- NOTE | 2018-03-30 11:31 | PN ---
Physical Exam: SUBJECTIVE: Patient seen and examined at bedside. No overnight events. No new complaints. Continues to have RLQ abdominal pain with associated nausea. Denies CP,HI, SOB, or palpitations. OBJECTIVE: Vital Signs Period Temp Pulse Resp BP Sys/Marino Pulse Ox Last 24 Hr 98.4 F-99.3 F 55-115 12-21 112-151/72-96 100 GENERAL: Awake, alert, and fully oriented, uncomfortable, mildly in distress, HEAD:NCAT EYES: PERRLA, EOMI, sclera anicteric, conjunctiva clear. EARS, NOSE, THROAT:moist mucous membranes. HEART: RRR, NL S1S2, No M/G/R appreciated. LUNGS: CTAB, no wheezing or rales. ABDOMEN: Soft,+RLQ tenderness, not distended, normoactive bowel sounds. LOWER EXTREMITIES: 2+ pulses, warm, well-perfused. No peripheral edema. SKIN: Warm, dry, normal turgor, no rashes or lesions noted. Laboratory Results - last 24 hr 03/29/18 03/29/18 03/29/18 09:50 14:46 14:46 WBC 21.4 H RBC 5.46 Hgb 16.2 Hct 47.0 MCV 86.0 MCH 29.7 MCHC 34.5 RDW 13.2 Plt Count 347 MPV 10.4 Absolute Neuts (auto) 17.6 H Neutrophils % 82.6 Neutrophils % (Manual) 79.5 Band Neutrophils % 0.0 Lymphocytes % 10.9 D Lymphocytes % (Manual) 14.8 Monocytes % 6.3 Monocytes % (Manual) 6 Eosinophils % 0.0 D Eosinophils % (Manual) 0.0 Basophils % 0.2 Basophils % (Manual) 0.0 Myelocytes % (Man) 0 Promyelocytes % (Man) 0 Blast Cells % (Manual) 0 Nucleated RBC % 0 Metamyelocytes 0 Hypochromia 0 Platelet Estimate Normal Platelet Comment Present Polychromasia 0 Poikilocytosis 0 Anisocytosis 0 Microcytosis 0 Macrocytosis 0 Sodium 135 L 134 L Potassium 4.5 4.6 Chloride 106 109 H Carbon Dioxide 5 L 12 L Anion Gap 24 H 13 BUN 15 12 Creatinine 1.3 1.2 Creat Clearance w eGFR > 60 > 60 Random Glucose 281 H 221 H Calcium 9.1 8.8 Phosphorus 2.6 1.3 L Magnesium 2.2 2.0 Total Bilirubin AST ALT Alkaline Phosphatase Total Protein Albumin Opiates Screen Methadone Screen Barbiturate Screen Phencyclidine Screen Ur Amphetamines Screen MDMA (Ecstasy) Screen Benzodiazepines Screen Cocaine Screen U Marijuana (THC) Screen 03/29/18 03/29/18 03/30/18 17:00 18:40 00:00 WBC RBC Hgb Hct MCV MCH MCHC RDW Plt Count MPV Absolute Neuts (auto) Neutrophils % Neutrophils % (Manual) Band Neutrophils % Lymphocytes % Lymphocytes % (Manual) Monocytes % Monocytes % (Manual) Eosinophils % Eosinophils % (Manual) Basophils % Basophils % (Manual) Myelocytes % (Man) Promyelocytes % (Man) Blast Cells % (Manual) Nucleated RBC % Metamyelocytes Hypochromia Platelet Estimate Platelet Comment Polychromasia Poikilocytosis Anisocytosis Microcytosis Macrocytosis Sodium 136 136 Potassium 4.6 3.7 Chloride 111 H 107 Carbon Dioxide 11 L 14 L Anion Gap 14 14 BUN 12 12 Creatinine 1.0 1.1 Creat Clearance w eGFR > 60 > 60 Random Glucose 253 H 343 H* Calcium 8.8 8.6 Phosphorus 2.2 L Magnesium 2.0 Total Bilirubin AST ALT Alkaline Phosphatase Total Protein Albumin Opiates Screen Positive A* Methadone Screen Negative Barbiturate Screen Negative Phencyclidine Screen Negative Ur Amphetamines Screen Negative MDMA (Ecstasy) Screen Negative Benzodiazepines Screen Negative Cocaine Screen Negative U Marijuana (THC) Screen Positive A* 03/30/18 03/30/18 05:15 05:15 WBC 12.4 H RBC 5.39 Hgb 15.4 Hct 45.7 MCV 84.8 MCH 28.5 MCHC 33.6 RDW 12.9 Plt Count 281 MPV 10.1 Absolute Neuts (auto) 9.7 H Neutrophils % 78.1 Neutrophils % (Manual) Band Neutrophils % Lymphocytes % 13.1 D Lymphocytes % (Manual) Monocytes % 8.1 Monocytes % (Manual) Eosinophils % 0.1 D Eosinophils % (Manual) Basophils % 0.6 Basophils % (Manual) Myelocytes % (Man) Promyelocytes % (Man) Blast Cells % (Manual) Nucleated RBC % 0 Metamyelocytes Hypochromia Platelet Estimate Platelet Comment Polychromasia Poikilocytosis Anisocytosis Microcytosis Macrocytosis Sodium 140 Potassium 3.5 Chloride 110 H Carbon Dioxide 19 L Anion Gap 10 BUN 11 Creatinine 0.8 Creat Clearance w eGFR > 60 Random Glucose 206 H Calcium 8.7 Phosphorus 1.2 L Magnesium 2.1 Total Bilirubin 0.4 AST 3 L ALT 21 Alkaline Phosphatase 70 Total Protein 6.8 Albumin 3.6 Opiates Screen Methadone Screen Barbiturate Screen Phencyclidine Screen Ur Amphetamines Screen MDMA (Ecstasy) Screen Benzodiazepines Screen Cocaine Screen U Marijuana (THC) Screen Active Medications Generic Name Dose Route Start Last Admin Trade Name Freq PRN Reason Stop Dose Admin Chlorhexidine Gluconate 1 applic 03/29/18 22:00 03/29/18 23:10 Hibiclens For Decolonization - TP Not Given HS PAOLA Enoxaparin Sodium 40 mg 03/29/18 10:00 03/30/18 09:29 Lovenox - SQ 40 mg DAILY PAOLA Administration Hydromorphone HCl 1 mg 03/30/18 10:13 03/30/18 10:19 Dilaudid Vial - IVPUSH 1 mg Q6H PRN Administration PAIN LEVEL 7 - 10 Ceftriaxone Sodium 1 gm/ 50 mls @ 100 mls/hr 03/29/18 18:45 03/30/18 09:36 Dextrose IVPB 100 mls/hr DAILY PAOLA Administration Protocol Metronidazole 500 mg in 100 mls @ 100 mls/hr 03/29/18 18:45 03/30/18 09:30 Flagyl 500mg Premixed Ivpb - IVPB 100 mls/hr Q8H-IV PAOLA Administration Lactated Ringer's 1,000 ml in 1,000 mls @ 125 mls/hr 03/30/18 10:00 03/30/18 10:15 Lactated Ringers Solution IV 125 mls/hr ASDIR PAOLA Administration Insulin Aspart 1 vial 03/30/18 11:00 Novolog Vial Sliding Scale - SQ ACHS PAOLA Protocol Mupirocin 1 applic 03/29/18 10:00 03/30/18 09:35 Bactroban Ointment (For Decolonization) - NS 04/03/18 09:59 1 applic BID PAOLA Administration ASSESSMENT/PLAN: 32 yo M with PMHx of IDDM , HTN, and HLD presents with 4 day h/o abdominal pain and nausea admitted to ICU for management of DKA. Neuro: * Awake and Alert * Pain control with Dilaudid 1mg IV Q6H Pulm: * No active issues * Supplemental O2 PRN CV: * BP has been on low side. * continue to monitor * Maintain MAP >65 GI: * GI consulted- Dr. Schmidt * hyperechoic lesions seen on US not present on recent imaging ; concern for abscesses. * High suspicion of perforated appendicitis with liver abscess; may require surgical intervention(consulted) * Will obtain a CT AP with IV contrast. * NPO for now - will advance after CT results. * Zofran for nausea. Endo: * Anion gap has closed. * Transitioned to Levemir and ISS * ADA liquid diet once CT done. ID: * Will continue Metronidazole and Ceftriaxone for now for possible perforated appendicitis. FEN: * LR @125 * Electrolytes WNL will replete PRN * Will advance to Liquid diet once CT AP resulted. Visit type - Emergency Visit Emergency Visit: Yes ED Registration Date: 03/29/18 Care time: The patient presented to the Emergency Department on the above date and was hospitalized for further evaluation of their emergent condition. - New Patient This patient is new to me today: Yes Date on this admission: 03/30/18 - Critical Care Critical Care patient: Yes Total Critical Care Time (in minutes): 41 Critical Care Statement: The care of this patient involved high complexity decision making to prevent further life threatening deterioration of the patient 's condition and/or to evaluate & treat vital organ system(s) failure or risk of failure.
--- NOTE | 2018-03-30 13:09 | PN ---
Progress Note (short form) - Note Progress Note: Feels better C/O abd pain now more localized to lower abdomen Vital Signs Period Temp Pulse Resp BP Sys/Marino Pulse Ox Last 24 Hr 98.0 F-99.3 F 55-113 12-21 112-151/72-96 100-100 PE: AOx3 Neck: Supple, No JVD HEENT: PEERL, EOMI Lungs: CTA CVS: S1S2 Abd: lower abd tenderness Ext: No edema Neuro: No focal deficit CMP Sodium 140 mmol/L (136-145) 03/30/18 05:15 Potassium 3.5 mmol/L (3.5-5.1) 03/30/18 05:15 Chloride 110 mmol/L (98-107) H 03/30/18 05:15 Carbon Dioxide 19 mmol/L (21-32) L 03/30/18 05:15 Anion Gap 10 MMOL/L (8-16) 03/30/18 05:15 BUN 11 mg/dL (7-18) 03/30/18 05:15 Creatinine 0.8 mg/dL (0.55-1.3) 03/30/18 05:15 Creat Clearance w eGFR > 60 (>60) 03/30/18 05:15 POC Glucometer 268.81468 UNITS (80-120) 03/29/18 03:10 Random Glucose 206 mg/dL (74-106) H 03/30/18 05:15 Hemoglobin A1c % 12.8 % (4.2-6.3) H 03/29/18 07:50 Calcium 8.7 mg/dL (8.5-10.1) 03/30/18 05:15 Phosphorus 1.2 mg/dL (2.5-4.9) L 03/30/18 05:15 Magnesium 2.1 mg/dL (1.8-2.4) 03/30/18 05:15 Total Bilirubin 0.4 mg/dL (0.2-1) 03/30/18 05:15 AST 3 U/L (15-37) L 03/30/18 05:15 ALT 21 U/L (13-61) 03/30/18 05:15 Alkaline Phosphatase 70 U/L (45-117) 03/30/18 05:15 Troponin I < 0.02 ng/ml (0.00-0.05) 03/29/18 05:31 Total Protein 6.8 g/dl (6.4-8.2) 03/30/18 05:15 Albumin 3.6 g/dl (3.4-5.0) 03/30/18 05:15 Lipase 50 U/L (73-393) L 03/29/18 02:51 CBC WBC 12.4 K/mm3 (4.0-10.0) H 03/30/18 05:15 RBC 5.39 M/mm3 (4.00-5.60) 03/30/18 05:15 Hgb 15.4 GM/dL (11.7-16.9) 03/30/18 05:15 Hct 45.7 % (35.4-49) 03/30/18 05:15 MCV 84.8 fl (80-96) 03/30/18 05:15 MCH 28.5 pg (25.7-33.7) 03/30/18 05:15 MCHC 33.6 g/dl (32.0-35.9) 03/30/18 05:15 RDW 12.9 % (11.9-15.9) 03/30/18 05:15 Plt Count 281 K/MM3 (134-434) 03/30/18 05:15 MPV 10.1 fl (7.5-11.1) 03/30/18 05:15 Absolute Neuts (auto) 9.7 K/mm3 (1.5-8.0) H 03/30/18 05:15 Neutrophils % 78.1 % (42.8-82.8) 03/30/18 05:15 Neutrophils % (Manual) 79.5 % (42.8-82.8) 03/29/18 14:46 Band Neutrophils % 0.0 % 03/29/18 14:46 Lymphocytes % 13.1 % (8-40) D 03/30/18 05:15 Lymphocytes % (Manual) 14.8 % (8-40) 03/29/18 14:46 Monocytes % 8.1 % (3.8-10.2) 03/30/18 05:15 Monocytes % (Manual) 6 % (3.8-10.2) 03/29/18 14:46 Eosinophils % 0.1 % (0-4.5) D 03/30/18 05:15 Eosinophils % (Manual) 0.0 % (0-4.5) 03/29/18 14:46 Basophils % 0.6 % (0-2.0) 03/30/18 05:15 Basophils % (Manual) 0.0 % (0-2.0) 03/29/18 14:46 Myelocytes % (Man) 0 % (0-2) 03/29/18 14:46 Promyelocytes % (Man) 0 % (0-2) 03/29/18 14:46 Blast Cells % (Manual) 0 % (0-0) 03/29/18 14:46 Nucleated RBC % 0 % (0-0) 03/30/18 05:15 Metamyelocytes 0 % (0-2) 03/29/18 14:46 Hypochromia 0 03/29/18 14:46 Platelet Estimate Normal 03/29/18 14:46 Platelet Comment Present 03/29/18 14:46 Polychromasia 0 03/29/18 14:46 Poikilocytosis 0 03/29/18 14:46 Anisocytosis 0 03/29/18 14:46 Microcytosis 0 03/29/18 14:46 Macrocytosis 0 03/29/18 14:46 Current Medications Generic Name Dose Route Start Last Admin Trade Name [place] PRN Reason Stop Dose Admin Chlorhexidine Gluconate 1 applic 03/29/18 22:00 03/29/18 23:10 Hibiclens For Decolonization - TP Not Given HS PAOLA Enoxaparin Sodium 40 mg 03/29/18 10:00 03/30/18 09:29 Lovenox - SQ 40 mg DAILY PAOLA Administration Hydromorphone HCl 1 mg 03/30/18 10:13 03/30/18 10:19 Dilaudid Vial - IVPUSH 1 mg Q6H PRN Administration PAIN LEVEL 7 - 10 Ceftriaxone Sodium 1 gm/ 50 mls @ 100 mls/hr 03/29/18 18:45 03/30/18 09:36 Dextrose IVPB 100 mls/hr DAILY PAOLA Administration Protocol Metronidazole 500 mg in 100 mls @ 100 mls/hr 03/29/18 18:45 03/30/18 09:30 Flagyl 500mg Premixed Ivpb - IVPB 100 mls/hr Q8H-IV PAOLA Administration Lactated Ringer's 1,000 ml in 1,000 mls @ 125 mls/hr 03/30/18 10:00 03/30/18 10:15 Lactated Ringers Solution IV 125 mls/hr ASDIR PAOLA Administration Insulin Aspart 1 vial 03/30/18 11:00 03/30/18 13:03 Novolog Vial Sliding Scale - SQ 10 units ACHS PAOLA Administration Protocol Mupirocin 1 applic 03/29/18 10:00 03/30/18 09:35 Bactroban Ointment (For Decolonization) - NS 04/03/18 09:59 1 applic BID PAOLA Administration AP: T2DM with DKA: DKA probably secondary to intercurrent illness and lack of Insulin. Nausea/Vomiting: ? Cause, GI consult noted ? Perforated appendix IV Abx Pt going down for CT abd/Pelvis Surgery conlt IV hydration Restart Insulin drip to maintain blood sugar [address] normal and pt is going to allowed food, start levemir at 40 units daily for now with Novolog SS coverage. Continue D5 with KCl Increase rate of IVF or change to D10 if necessary to maintain blood sugar >120 until Acidosis resolves and A Gap normalizes Electrolyte replacement as necessary Case discussed with housestaff. Problem List - Problems (1) DKA (diabetic ketoacidoses) Code(s): E13.10 - OTH DIABETES MELLITUS WITH KETOACIDOSIS WITHOUT COMA (2) Vomiting Code(s): R11.10 - VOMITING, UNSPECIFIED
[2018-03-30] MEDS ORDERED: INSULIN REGULAR 100 UNITS in SODIUM CHLORIDE 99 ML IVPB SCH (14:15)
--- NOTE | 2018-03-30 14:41 | PN ---
Teaching Attending Note Name of Resident: Cynthia Gutierrez ATTENDING PHYSICIAN STATEMENT I saw and evaluated the patient. I reviewed the resident's note and discussed the case with the resident. I agree with the resident's findings and plan as documented. SUBJECTIVE: Patient c/o having an abdominal pain overnight more localized RLQ area. No fever or chills. OBJECTIVE: Vital Signs Temperature 99.2 F 03/30/18 14:00 Pulse Rate 106 H 03/30/18 14:00 Respiratory Rate 15 03/30/18 14:00 Blood Pressure 140/90 03/30/18 14:00 O2 Sat by Pulse Oximetry (%) 100 03/30/18 09:00 GENERAL: Awake, alert, and fully oriented, uncomfortable, in NAD, HEAD: Normal with no signs of trauma. EYES: PERRLA, EOMI, sclera anicteric, conjunctiva clear. EARS, NOSE, THROAT:Dry mucous membranes. CHEST: CTA BL ,Breath sounds equal/. HEART: tachycardic, normal S1 and S2 without murmur, rub or gallop. ABDOMEN: Soft, RLQ tenderness , not distended, normoactive bowel sounds. EXTREMITIES: 2+ pulses, warm, well-perfused. No peripheral edema. SKIN: Warm, dry, normal turgor, no rashes or lesions noted. CBCD WBC 12.4 K/mm3 (4.0-10.0) H 03/30/18 05:15 RBC 5.39 M/mm3 (4.00-5.60) 03/30/18 05:15 Hgb 15.4 GM/dL (11.7-16.9) 03/30/18 05:15 Hct 45.7 % (35.4-49) 03/30/18 05:15 MCV 84.8 fl (80-96) 03/30/18 05:15 MCHC 33.6 g/dl (32.0-35.9) 03/30/18 05:15 RDW 12.9 % (11.9-15.9) 03/30/18 05:15 Plt Count 281 K/MM3 (134-434) 03/30/18 05:15 MPV 10.1 fl (7.5-11.1) 03/30/18 05:15 CMP Sodium 140 mmol/L (136-145) 03/30/18 05:15 Potassium 3.5 mmol/L (3.5-5.1) 03/30/18 05:15 Chloride 110 mmol/L (98-107) H 03/30/18 05:15 Carbon Dioxide 19 mmol/L (21-32) L 03/30/18 05:15 Anion Gap 10 MMOL/L (8-16) 03/30/18 05:15 BUN 11 mg/dL (7-18) 03/30/18 05:15 Creatinine 0.8 mg/dL (0.55-1.3) 03/30/18 05:15 Creat Clearance w eGFR > 60 (>60) 03/30/18 05:15 Random Glucose 206 mg/dL (74-106) H 03/30/18 05:15 Calcium 8.7 mg/dL (8.5-10.1) 03/30/18 05:15 Total Bilirubin 0.4 mg/dL (0.2-1) 03/30/18 05:15 AST 3 U/L (15-37) L 03/30/18 05:15 ALT 21 U/L (13-61) 03/30/18 05:15 Alkaline Phosphatase 70 U/L (45-117) 03/30/18 05:15 Total Protein 6.8 g/dl (6.4-8.2) 03/30/18 05:15 Albumin 3.6 g/dl (3.4-5.0) 03/30/18 05:15 CARDIAC ENZYMES Troponin I < 0.02 ng/ml (0.00-0.05) 03/29/18 05:31 Current Medications Generic Name Dose Route Start Last Admin Trade Name Omegaq PRN Reason Stop Dose Admin Chlorhexidine Gluconate 1 applic 03/29/18 22:00 03/29/18 23:10 Hibiclens For Decolonization - TP Not Given HS PAOLA Enoxaparin Sodium 40 mg 03/29/18 10:00 03/30/18 09:29 Lovenox - SQ 40 mg DAILY PAOLA Administration Hydromorphone HCl 1 mg 03/30/18 10:13 03/30/18 10:19 Dilaudid Vial - IVPUSH 1 mg Q6H PRN Administration PAIN LEVEL 7 - 10 Ceftriaxone Sodium 1 gm/ 50 mls @ 100 mls/hr 03/29/18 18:45 03/30/18 09:36 Dextrose IVPB 100 mls/hr DAILY PAOLA Administration Protocol Metronidazole 500 mg in 100 mls @ 100 mls/hr 03/29/18 18:45 03/30/18 09:30 Flagyl 500mg Premixed Ivpb - IVPB 100 mls/hr Q8H-IV PAOLA Administration Lactated Ringer's 1,000 ml in 1,000 mls @ 125 mls/hr 03/30/18 10:00 03/30/18 10:15 Lactated Ringers Solution IV 125 mls/hr ASDIR PAOLA Administration Insulin Human Regular 100 100 mls @ 3 mls/hr 03/30/18 14:15 units/ Sodium Chloride IVPB TITR PAOLA Protocol 3 UNITS/HR Mupirocin 1 applic 03/29/18 10:00 03/30/18 09:35 Bactroban Ointment (For Decolonization) - NS 04/03/18 09:59 1 applic BID PAOLA Administration Home Medications Medication Instructions Recorded Tizanidine HCl 2 mg PO ASDIR 06/01/17 Insulin Glargine,Hum.rec.anlog 1 units SQ ASDIR 03/25/18 [Lantus Solostar PEN (NF)] Insulin Sliding Scale [Novolog 0 units SQ ACHS 03/25/18 Vial Sliding Scale -] Meloxicam [Mobic] 15 mg PO ASDIR 03/25/18 Atorvastatin Ca [Lipitor] 20 mg PO HS 03/29/18 Oxycodone HCl/Acetaminophen 1 each PO PRN 03/29/18 [Percocet 10-325 mg Tablet] Laboratory Tests 03/29/18 03/29/18 03/29/18 02:51 02:51 14:46 WBC 15.7 H 21.4 H Opiates Screen Methadone Screen Barbiturate Screen Phencyclidine Screen Ur Amphetamines Screen MDMA (Ecstasy) Screen Benzodiazepines Screen Cocaine Screen U Marijuana (THC) Screen Acetone, Qual Positive moderate 2+ 03/29/18 03/30/18 17:00 05:15 WBC 12.4 H Opiates Screen Positive A* Methadone Screen Negative Barbiturate Screen Negative Phencyclidine Screen Negative Ur Amphetamines Screen Negative MDMA (Ecstasy) Screen Negative Benzodiazepines Screen Negative Cocaine Screen Negative U Marijuana (THC) Screen Positive A* Acetone, Qual ASSESSMENT AND PLAN: Patient is a 32 year old male with past medical history of IDDM, presented with abdominal pain, nausea and vomiting, that started 4 days ago, no fever or chills. #T2DM with DKA: on Insulin drip continue for now ,Endocrine on the case. with BGms. patient is in ICU , continue to monitor, IVF continue. # Acute leukocytosis improving on Rocephin and flagyl Iv continue. Id on the case, CT abd and pelvis oral and IV contrast, result noted no appendicitis . GI is on the case Dr. Schmidt. Surgical consult appreciated. #ILAN continue IVF . improved cr.0.8 now. DVT Px: Lovenox
--- NOTE | 2018-03-30 17:01 | CONSULT ---
- Consultation REQUESTING PROVIDER: Rosamaria CONSULT REQUEST: We have been asked to surgically evaluate this patient for possible perforated appendicitis w/possible hepatic abscess formation. PCP:Tamar Blank HISTORY OF PRESENT ILLNESS: GUICHOP who is 32 y/o male admitted in DKA who subsequently ? c/o RLQ abdominal pain. He denies nausea/vomiting or any other GI c/o; he was in the ER 03/25/18 and txed and released; he was seen bi GI who suggested a Surgical Consult; patient currently has no c/o; he wants to eat; he has no h/o previous surgery; he has IDDM and is non compliant. He has no other GI/ c/o. PMHx: IDDM/HLD PSHx: Home Medications Medication Instructions Recorded Tizanidine HCl 2 mg PO ASDIR 06/01/17 Insulin Glargine,Hum.rec.anlog 1 units SQ ASDIR 03/25/18 [Lantus Solostar PEN (NF)] Insulin Sliding Scale [Novolog 0 units SQ ACHS 03/25/18 Vial Sliding Scale -] Meloxicam [Mobic] 15 mg PO ASDIR 03/25/18 Atorvastatin Ca [Lipitor] 20 mg PO HS 03/29/18 Oxycodone HCl/Acetaminophen 1 each PO PRN 03/29/18 [Percocet 10-325 mg Tablet] Allergies Allergy/AdvReac Type Severity Reaction Status Date / Time No Known Allergies Allergy Verified 03/29/18 02:41 PHYSICAL EXAM: GENERAL: Awake, alert, and fully oriented, in no acute distress. HEAD: Normal with no signs of trauma. EYES: PERRL, sclera anicteric, conjunctiva clear. NECK: Normal ROM, supple without lymphadenopathy, JVD, or masses. ABDOMEN: Soft, nontender, not distended, normoactive bowel sounds, no guarding, no rebound, no masses. No organomegaly. No hernias MUSCULOSKELETAL: Normal ROM at all joints. No bony deformities or tenderness. No CVA tenderness. UPPER EXTREMITIES: 2+ pulses, warm, well-perfused. No cyanosis. Cap refill <2 seconds. No peripheral edema. LOWER EXTREMITIES: 2+ pulses, warm, well-perfused. No calf tenderness. No peripheral edema. NEUROLOGICAL: Normal speech, gait not observed. PSYCH: Cooperative. Good eye contact. Appropriate mood and affect. SKIN: Warm, dry, normal turgor,. Vital Signs Temperature 99.2 F 03/30/18 14:00 Pulse Rate 106 H 03/30/18 14:00 Respiratory Rate 15 03/30/18 14:00 Blood Pressure 140/90 03/30/18 14:00 O2 Sat by Pulse Oximetry (%) 100 03/30/18 09:00 Lab Results WBC 12.4 K/mm3 (4.0-10.0) H 03/30/18 05:15 RBC 5.39 M/mm3 (4.00-5.60) 03/30/18 05:15 Hgb 15.4 GM/dL (11.7-16.9) 03/30/18 05:15 Hct 45.7 % (35.4-49) 03/30/18 05:15 MCV 84.8 fl (80-96) 03/30/18 05:15 MCHC 33.6 g/dl (32.0-35.9) 03/30/18 05:15 RDW 12.9 % (11.9-15.9) 03/30/18 05:15 Plt Count 281 K/MM3 (134-434) 03/30/18 05:15 Sodium 140 mmol/L (136-145) 03/30/18 05:15 Potassium 3.5 mmol/L (3.5-5.1) 03/30/18 05:15 Chloride 110 mmol/L (98-107) H 03/30/18 05:15 Carbon Dioxide 19 mmol/L (21-32) L 03/30/18 05:15 Anion Gap 10 MMOL/L (8-16) 03/30/18 05:15 BUN 11 mg/dL (7-18) 03/30/18 05:15 Creatinine 0.8 mg/dL (0.55-1.3) 03/30/18 05:15 Random Glucose 206 mg/dL (74-106) H 03/30/18 05:15 Calcium 8.7 mg/dL (8.5-10.1) 03/30/18 05:15 US reviewed; CT scan a/p reviewed IMP:no clinical or radiological evidence of an acute surgical at this time PLAN: Reconsult prn. Sundar Dockery MD FACS
[2018-03-30] MEDS: INSULIN (LEVEMIR) 100 UNITS/ML UNITS SQ SCH ×3 (17:14→22:30)
[2018-03-30] MEDS: ACETAMINOPHEN 325 MG TABLET (FP) PO PRN (22:27)
[2018-03-30] MEDS: oxyCODONE HCL 5 MG TABLET PO PRN (22:28)
[2018-03-30] MEDS: INSULIN SLIDING SCALE (NOVOLOG) 1 VIAL SQ SCH (22:29)
[2018-03-30] MEDS: CHLORHEXIDINE GLUCONATE 4% CLEANSER FOR DECOLONIZATION TP SCH (22:30)
[2018-03-31 05:59] LABS: BASO % 0.7 % (0-2.0); EOS % 0.6 % (0-4.5); HEMATOCRIT 39.8 % (35.4-49); HEMOGLOBIN 14.5 GM/dL (11.7-16.9); LYMPH % 35.4 % (8-40); MCH 30.4 pg (25.7-33.7); MCHC 36.4 g/dl (32.0-35.9); MEAN CELL VOLUME 83.5 fl (80-96); MEAN PLT VOLUME 10.1 fl (7.5-11.1); MONO % 7.9 % (3.8-10.2); NEUT % 55.4 % (42.8-82.8); PLATELET COUNT 232 K/MM3 (134-434); RBC 4.77 M/mm3 (4.00-5.60); WHITE BLOOD COUNT 9.7 K/mm3 (4.0-10.0)
[2018-03-31] MEDS: oxyCODONE HCL 5 MG TABLET PO PRN ×3 (06:22→22:58)
[2018-03-31] MEDS: ACETAMINOPHEN 325 MG TABLET (FP) PO PRN ×3 (06:23→22:59)
[2018-03-31] MEDS: INSULIN SLIDING SCALE (NOVOLOG) 1 VIAL SQ SCH ×4 (06:24→21:41)
[2018-03-31 06:50] LABS: ALBUMIN 3.3 g/dl (3.4-5.0); ALK PHOS 66 U/L (45-117); ANION GAP 5 MMOL/L (8-16); BILIRUBIN,TOTAL 0.6 mg/dL (0.2-1); BLOOD UREA NITROGEN 10 mg/dL (7-18); CALCIUM 8.7 mg/dL (8.5-10.1); CHLORIDE 110 mmol/L (98-107); CO2 26 mmol/L (21-32); CREATININE 0.6 mg/dL (0.55-1.3); GLUCOSE,RANDOM 151 mg/dL (74-106); POTASSIUM 3.2 mmol/L (3.5-5.1); SGOT/AST 8 U/L (15-37); SGPT/ALT 18 U/L (13-61); SODIUM 141 mmol/L (136-145)
--- NOTE | 2018-03-31 08:13 | PN ---
Physical Exam: SUBJECTIVE: Patient seen and examined. Endorses continued abdominal pain. +N. Denies vomiting. OBJECTIVE: Vital Signs Period Temp Pulse Resp BP Sys/Marino Pulse Ox Last 24 Hr 98.0 F-99.5 F 71-106 12-18 120-142/82-91 100-100 GENERAL: Awake, alert, and fully oriented HEAD:NCAT EYES: PERRLA, EOMI, sclera anicteric, conjunctiva clear. EARS, NOSE, THROAT:moist mucous membranes. HEART: RRR, NL S1S2, No M/G/R appreciated. LUNGS: CTAB, no wheezing or rales. ABDOMEN: Soft, mild epigastric TTP w/o rebound or guarding, non-distended, normoactive bowel sounds. LOWER EXTREMITIES: 2+ pulses, warm, well-perfused. No peripheral edema. SKIN: Warm, dry ASSESSMENT/PLAN: The pt is a 32M with a PMH of T2DM, HTN, and HLD presented with 4d of abdominal pain and nausea admitted to ICU for management of DKA. Neuro: Acute Pain -Tylenol 325mg PO Q6H PRN -Oxycodone 10mg PO Q6H PRN CV: HDS Pulm: Breathing comfortably on room air GI: Nutrition -FLD 2/2 Nausea Reflux -Protonix LR @125 Electrolytes WNL will replete PRN Endo T2DM w/ DKA -Anion gap has closed -ISS -Levemir 40 units SQ HS ID -Will D/C Metronidazole and Ceftriaxone since appendicitis ruled out Dispo: Patient no longer requires ICU level of care. Plan to transfer to floor today. Visit type - Emergency Visit Emergency Visit: Yes ED Registration Date: 03/29/18 Care time: The patient presented to the Emergency Department on the above date and was hospitalized for further evaluation of their emergent condition. - New Patient This patient is new to me today: Yes Date on this admission: 03/31/18 - Critical Care Critical Care patient: Yes Total Critical Care Time (in minutes): 35 Critical Care Statement: The care of this patient involved high complexity decision making to prevent further life threatening deterioration of the patient 's condition and/or to evaluate & treat vital organ system(s) failure or risk of failure.
[2018-03-31] MEDS ORDERED: PT OWN MED DRAWER 7, Y5N ONE ×2 (09:42→18:32)
[2018-03-31] MEDS ORDERED: cefTRIAXone SODIUM 1 GM VIAL ONE (09:43)
[2018-03-31] MEDS ORDERED: DEXTROSE 5%-WATER - 50 ML IVPB ONE (09:43)
[2018-03-31] MEDS: CEFTRIAXONE 1 GM in DEXTROSE 5%-WATER - 50 ML IVPB SCH (09:46)
[2018-03-31] MEDS: ENOXAPARIN NA (PORCINE) 40 MG/0.4 ML DISP.SYRIN SQ SCH (09:47)
[2018-03-31] MEDS: MUPIROCIN 2% TOPICAL OINTMENT FOR DECOLONIZATION NS SCH (09:47)
[2018-03-31] MEDS: PANTOPRAZOLE 40 MG TABLET (FP) PO SCH (12:24)
--- NOTE | 2018-03-31 12:41 | PN ---
Teaching Attending Note Name of Resident: Devin Samuel ATTENDING PHYSICIAN STATEMENT I saw and evaluated the patient. I reviewed the resident's note and discussed the case with the resident. I agree with the resident's findings and plan as documented. SUBJECTIVE: Pt seen and examined in the ICU. Feels overall better but still some epigastric pain and nausea. Anion gap remains closed. OBJECTIVE: Vital Signs Period Temp Pulse Resp BP Sys/Marino Pulse Ox Last 24 Hr 98.4 F-99.5 F 71-106 12-18 105-145/71-91 100 Intake & Output 03/28/18 03/29/18 03/30/18 03/31/18 23:59 23:59 23:59 23:59 Intake Total 4005 5164 1775 Output Total 600 1700 600 Balance 3405 3464 1175 Weight 106.594 kg Gen: NAD at rest Heart: RRR Lung: decreased breath sounds at the bases Abd: soft, mild epigastric tenderness Ext: no edema CBC, BMP 03/31/18 05:15 03/31/18 05:15 Active Medications Acetaminophen (Tylenol -) 325 mg PO Q6H PRN PRN Reason: PAIN SCALE 6-10 Last Admin: 03/31/18 06:23 Dose: 325 mg Chlorhexidine Gluconate (Hibiclens For Decolonization -) 1 applic TP [facility] Last Admin: 03/30/18 22:30 Dose: 1 applic Enoxaparin Sodium (Lovenox -) 40 mg SQ DAILY [facility] Last Admin: 03/31/18 09:47 Dose: 40 mg Insulin Aspart (Novolog Vial Sliding Scale -) 1 vial SQ [facility]; Protocol Last Admin: 03/31/18 12:25 Dose: 10 units Insulin Detemir (Levemir Vial) 40 units SQ [facility] Last Admin: 03/30/18 21:11 Dose: Not Given Mupirocin (Bactroban Ointment (For Decolonization) -) 1 applic NS BID [facility] Stop: 04/03/18 09:59 Last Admin: 03/31/18 09:47 Dose: 1 applic Oxycodone HCl (Roxicodone -) 10 mg PO Q6H PRN PRN Reason: PAIN LEVEL 6-10 Last Admin: 03/31/18 06:22 Dose: 10 mg Pantoprazole Sodium (Protonix -) 40 mg PO DAILY [facility] Last Admin: 03/31/18 12:24 Dose: 40 mg ASSESSMENT AND PLAN: Diabetic Ketoacidosis resolved Acute Kidney Injury improving Diabetic Gastroparesis Thrush - continue IVF - monitor urine output, creatinine - glucose control - start nystatin for thrush - PO as tolerated - DVT prophylaxis - can monitor on floor
[2018-03-31] MEDS: POLYETHYLENE GLYCOL 3350 119 GM BTL PO SCH ×2 (13:36→21:41)
--- NOTE | 2018-03-31 13:44 | PN ---
Progress Note (short form) - Note Progress Note: Feels better C/O abd pain and Nausea but no vomiting Vital Signs Period Temp Pulse Resp BP Sys/Marino Pulse Ox Last 24 Hr 98.4 F-99.5 F 71-106 12-18 103-145/71-91 98-100 PE: AOx3 Neck: Supple, No JVD HEENT: PEERL, EOMI Lungs: CTA CVS: S1S2 Abd: lower abd tenderness Ext: No edema Neuro: No focal deficit CBC,CMP WBC 9.7 K/mm3 (4.0-10.0) 03/31/18 05:15 RBC 4.77 M/mm3 (4.00-5.60) 03/31/18 05:15 Hgb 14.5 GM/dL (11.7-16.9) 03/31/18 05:15 Hct 39.8 % (35.4-49) 03/31/18 05:15 MCV 83.5 fl (80-96) 03/31/18 05:15 MCH 30.4 pg (25.7-33.7) 03/31/18 05:15 MCHC 36.4 g/dl (32.0-35.9) H 03/31/18 05:15 RDW 13.0 % (11.9-15.9) 03/31/18 05:15 Plt Count 232 K/MM3 (134-434) 03/31/18 05:15 MPV 10.1 fl (7.5-11.1) 03/31/18 05:15 Absolute Neuts (auto) 5.4 K/mm3 (1.5-8.0) 03/31/18 05:15 Neutrophils % 55.4 % (42.8-82.8) D 03/31/18 05:15 Neutrophils % (Manual) 79.5 % (42.8-82.8) 03/29/18 14:46 Band Neutrophils % 0.0 % 03/29/18 14:46 Lymphocytes % 35.4 % (8-40) D 03/31/18 05:15 Lymphocytes % (Manual) 14.8 % (8-40) 03/29/18 14:46 Monocytes % 7.9 % (3.8-10.2) 03/31/18 05:15 Monocytes % (Manual) 6 % (3.8-10.2) 03/29/18 14:46 Eosinophils % 0.6 % (0-4.5) D 03/31/18 05:15 Eosinophils % (Manual) 0.0 % (0-4.5) 03/29/18 14:46 Basophils % 0.7 % (0-2.0) 03/31/18 05:15 Basophils % (Manual) 0.0 % (0-2.0) 03/29/18 14:46 Myelocytes % (Man) 0 % (0-2) 03/29/18 14:46 Promyelocytes % (Man) 0 % (0-2) 03/29/18 14:46 Blast Cells % (Manual) 0 % (0-0) 03/29/18 14:46 Nucleated RBC % 0 % (0-0) 03/31/18 05:15 Metamyelocytes 0 % (0-2) 03/29/18 14:46 Hypochromia 0 03/29/18 14:46 Platelet Estimate Normal 03/29/18 14:46 Platelet Comment Present 03/29/18 14:46 Polychromasia 0 03/29/18 14:46 Poikilocytosis 0 03/29/18 14:46 Anisocytosis 0 03/29/18 14:46 Microcytosis 0 03/29/18 14:46 Macrocytosis 0 03/29/18 14:46 Sodium 141 mmol/L (136-145) 03/31/18 05:15 Potassium 3.2 mmol/L (3.5-5.1) L 03/31/18 05:15 Chloride 110 mmol/L (98-107) H 03/31/18 05:15 Carbon Dioxide 26 mmol/L (21-32) 03/31/18 05:15 Anion Gap 5 MMOL/L (8-16) L 03/31/18 05:15 BUN 10 mg/dL (7-18) 03/31/18 05:15 Creatinine 0.6 mg/dL (0.55-1.3) 03/31/18 05:15 Creat Clearance w eGFR > 60 (>60) 03/31/18 05:15 POC Glucometer 142.67522 UNITS (80-120) 03/31/18 05:43 Random Glucose 151 mg/dL (74-106) H 03/31/18 05:15 Hemoglobin A1c % 12.8 % (4.2-6.3) H 03/29/18 07:50 Calcium 8.7 mg/dL (8.5-10.1) 03/31/18 05:15 Phosphorus 1.2 mg/dL (2.5-4.9) L 03/30/18 05:15 Magnesium 2.1 mg/dL (1.8-2.4) 03/30/18 05:15 Total Bilirubin 0.6 mg/dL (0.2-1) 03/31/18 05:15 AST 8 U/L (15-37) L 03/31/18 05:15 ALT 18 U/L (13-61) 03/31/18 05:15 Alkaline Phosphatase 66 U/L (45-117) 03/31/18 05:15 Troponin I < 0.02 ng/ml (0.00-0.05) 03/29/18 05:31 Total Protein 6.0 g/dl (6.4-8.2) L 03/31/18 05:15 Albumin 3.3 g/dl (3.4-5.0) L 03/31/18 05:15 Lipase 50 U/L (73-393) L 03/29/18 02:51 Current Medications Generic Name Dose Route Start Last Admin Trade Name [place] PRN Reason Stop Dose Admin Acetaminophen 325 mg 03/30/18 20:17 03/31/18 13:32 Tylenol - PO 325 mg Q6H PRN Administration PAIN SCALE 6-10 Chlorhexidine Gluconate 1 applic 03/29/18 22:00 03/30/18 22:30 Hibiclens For Decolonization - TP 1 applic HS [facility] Administration Enoxaparin Sodium 40 mg 03/29/18 10:00 03/31/18 09:47 Lovenox - SQ 40 mg DAILY [facility] Administration Insulin Aspart 1 vial 03/30/18 22:00 03/31/18 12:25 Novolog Vial Sliding Scale - SQ 10 units ACHS [facility] Administration Protocol Insulin Detemir 40 units 03/30/18 16:44 03/30/18 21:11 Levemir Vial SQ Not Given HS [facility] Mupirocin 1 applic 03/29/18 10:00 03/31/18 09:47 Bactroban Ointment (For Decolonization) - NS 04/03/18 09:59 1 applic BID [facility] Administration Nystatin 500,000 units 03/31/18 18:00 Nystatin Oral Suspension - PO Q6HPO [facility] Oxycodone HCl 10 mg 03/30/18 20:17 03/31/18 13:31 Roxicodone - PO 10 mg Q6H PRN Administration PAIN LEVEL 6-10 Pantoprazole Sodium 40 mg 03/31/18 10:00 03/31/18 12:24 Protonix - PO 40 mg DAILY [facility] Administration Polyethylene Glycol 17 gm 03/31/18 13:30 03/31/18 13:36 Miralax (For Daily Use) - PO 17 grams BID [facility] Administration AP: T2DM with DKA: DKA probably secondary to intercurrent illness and lack of Insulin. Nausea/Vomiting: ? Cause, CT abd shows no evidence of Acute appendicitis IV Abx Pt going down for CT abd/Pelvis Surgery consult noted IV hydration Levemir 40 units daily at HS Novolog SS coverage. Electrolyte replacement as necessary Case discussed with housestaff. Problem List - Problems (1) DKA (diabetic ketoacidoses) Code(s): E13.10 - OTH DIABETES MELLITUS WITH KETOACIDOSIS WITHOUT COMA (2) Vomiting Code(s): R11.10 - VOMITING, UNSPECIFIED
--- NOTE | 2018-03-31 15:36 | PN ---
Progress Note (short form) - Note Progress Note: Patient seen and examined Labs reviewed No longer in DKA No appetite Abdominal pain persists - epigastrium and b/l lower quadrants CT A/P with partially visualized but normal appendix, short segment thickening of descending colon likely underdistension No bm x1 week Being transferred to floor 03/31/18 14:00 Temperature 98.6 F Pulse Rate 74 Respiratory 13 Rate Blood Pressure 103/91 O2 Sat by Pulse Oximetry (%) NAD Abdomen soft, ttp epigastrium and b/l lower quadrants CBC, BMP 03/31/18 05:15 03/31/18 05:15 Impression - abdominal pain. Could have been related to DKA but now gap closed and abdominal pain persists. ? constipation related vs other, ? PUD. - recommend trial of Miralax 17g daily - if pain persists despite bm, might consider endoscopic evaluation for further assessment
--- NOTE | 2018-03-31 17:23 | PN ---
Physical Exam: SUBJECTIVE: Patient seen and examined at bedside. No acute events overnight. Pt still complaining of persistent epigastric pain. Unable to cornell PO diet. OBJECTIVE: Vital Signs Temperature 98.9 F 03/31/18 15:53 Pulse Rate 85 03/31/18 15:53 Respiratory Rate 17 03/31/18 15:53 Blood Pressure 138/90 03/31/18 15:53 O2 Sat by Pulse Oximetry (%) 98 03/31/18 09:00 GENERAL: AAOx3. HEENT: AT/NC. EOMI. REI. Dry mucus membranes. NECK: Supple, no LAD/JVD. LUNGS: CTA B/L. No wheezes heard. HEART: RRR. Normal S1, S2. ABDOMEN: Soft. RLQ abd tenderness to palpation. +epigastric tenderness. +BS in all 4Qs. EXTREMITIES: 2+ pulses, warm, well-perfused, no peripheral edema b/l. NEUROLOGICAL: Facial symmetry noted. PSYCH: Normal mood, normal affect. SKIN: Warm, dry, normal turgor, no rashes or lesions noted CBCD WBC 9.7 K/mm3 (4.0-10.0) 03/31/18 05:15 RBC 4.77 M/mm3 (4.00-5.60) 03/31/18 05:15 Hgb 14.5 GM/dL (11.7-16.9) 03/31/18 05:15 Hct 39.8 % (35.4-49) 03/31/18 05:15 MCV 83.5 fl (80-96) 03/31/18 05:15 MCHC 36.4 g/dl (32.0-35.9) H 03/31/18 05:15 RDW 13.0 % (11.9-15.9) 03/31/18 05:15 Plt Count 232 K/MM3 (134-434) 03/31/18 05:15 MPV 10.1 fl (7.5-11.1) 03/31/18 05:15 CMP Sodium 141 mmol/L (136-145) 03/31/18 05:15 Potassium 3.2 mmol/L (3.5-5.1) L 03/31/18 05:15 Chloride 110 mmol/L (98-107) H 03/31/18 05:15 Carbon Dioxide 26 mmol/L (21-32) 03/31/18 05:15 Anion Gap 5 MMOL/L (8-16) L 03/31/18 05:15 BUN 10 mg/dL (7-18) 03/31/18 05:15 Creatinine 0.6 mg/dL (0.55-1.3) 03/31/18 05:15 Creat Clearance w eGFR > 60 (>60) 03/31/18 05:15 Calcium 8.7 mg/dL (8.5-10.1) 03/31/18 05:15 Total Bilirubin 0.6 mg/dL (0.2-1) 03/31/18 05:15 AST 8 U/L (15-37) L 03/31/18 05:15 ALT 18 U/L (13-61) 03/31/18 05:15 Alkaline Phosphatase 66 U/L (45-117) 03/31/18 05:15 Total Protein 6.0 g/dl (6.4-8.2) L 03/31/18 05:15 Albumin 3.3 g/dl (3.4-5.0) L 03/31/18 05:15 Active Medications Acetaminophen (Tylenol -) 325 mg PO Q6H PRN PRN Reason: PAIN SCALE 6-10 Last Admin: 03/31/18 13:32 Dose: 325 mg Cephalexin HCl (Keflex -) 500 mg PO Q6HPO [facility] Chlorhexidine Gluconate (Hibiclens For Decolonization -) 1 applic TP HS [facility] Enoxaparin Sodium (Lovenox -) 40 mg SQ DAILY [facility] Insulin Aspart (Novolog Vial Sliding Scale -) 1 vial SQ TIDAC [facility]; Protocol Insulin Aspart (Novolog Vial Sliding Scale -) 1 vial SQ HS [facility]; Protocol Insulin Detemir (Levemir Vial) 40 units SQ HS [facility] Mupirocin (Bactroban Ointment (For Decolonization) -) 1 applic NS BID [facility] Stop: 04/03/18 09:59 Nystatin (Nystatin Oral Suspension -) 500,000 units PO Q6HPO [facility] Oxycodone HCl (Roxicodone -) 10 mg PO Q6H PRN PRN Reason: PAIN LEVEL 6-10 Last Admin: 03/31/18 13:31 Dose: 10 mg Pantoprazole Sodium (Protonix -) 40 mg PO DAILY [facility] Last Admin: 03/31/18 12:24 Dose: 40 mg Polyethylene Glycol (Miralax (For Daily Use) -) 17 gm PO BID [facility] Last Admin: 03/31/18 13:36 Dose: 17 grams CONSULTS: GI- Dr. Schmidt Endo- Dr. Morillo Surg- Dr. Dockery IMAGING: * Abd U/S: No gallstones or acute kenneth. Slightl dense and coarse echotexture of liver suggestive of mild fatty infiltration vs. hepatoceellular dz. Echogenic densities in liver, largest 1.5 0.9 cm. * CXR: No acute chest pathology. * CTAP: No evidence of SBO, no evidence of hydroureteronephrosis, renal or ureteral stone b/l. few diverticulae w/o diverticulitis. ASSESSMENT/PLAN: 32M with past medical history of IDDM, presented with abdominal pain, nausea and vomiting, that started 4 days prior to admission. #Diabetic Ketoacidosis; Resolved. May be precipitated by infection. -Glu 206, AG 10; gap closed with improved glucose -BGMs ACHS, ISS ACHS -Utox +opiates, +MJ #Abdominal pain; ? constipation vs. ? PUD -Per GI, recommend trial of Miralax 17g daily. If pain persists despite, might consider endoscopic evaluation for further assessment. -Oxycodone 10 mg PO Q6H PRN -Tylenol 325 mg PO Q6H PRN -Miralax 17gm PO BID -Protonix 40 mg PO QD #Elevated WBC; 15.7 > 21.4 > 12.4. R/o infection as possible trigger for DKA -CXR/UA neg. Abd U/S noted above. -Per surg, no clinical or radiological evidence of an acute surgical at this time. #Hyperkalemia; Resolved. Na 141, K 3.2 -Replete PRN, trend BMP #ILAN; Resolved. Likely prerenal from multiple vomiting episodes and elevated glucose. -BUN/Cr 10/0.6 -IVf for hydration -recheck BMP #FEN -IVf -recheck lytes in AM (Na, K) -Diabetic diet #Prophylaxis -Lovenox 40mg sq daily -Protonix 40mg IV daily #Disposition -full code -cont to monitor in ICU Visit type - Emergency Visit Emergency Visit: Yes ED Registration Date: 03/29/18 Care time: The patient presented to the Emergency Department on the above date and was hospitalized for further evaluation of their emergent condition. - New Patient This patient is new to me today: No - Critical Care Critical Care patient: No
[2018-03-31] MEDS: CEPHALEXIN MONOHYDRATE 500 MG CAPSULE (UD) PO SCH ×2 (17:50→23:02)
[2018-03-31] MEDS ORDERED: CEPHALEXIN MONOHYDRATE 500 MG CAPSULE (UD) PO SCH (18:00)
[2018-03-31] MEDS: NYSTATIN 500,000 UNITS/5 ML SUSPENSION PO SCH ×2 (18:17→22:59)
--- NOTE | 2018-03-31 19:15 | PN ---
Teaching Attending Note Name of Resident: Evelyn Stoner ATTENDING PHYSICIAN STATEMENT I saw and evaluated the patient. I reviewed the resident's note and discussed the case with the resident. I agree with the resident's findings and plan as documented. SUBJECTIVE: Patient is feeling better, tolerating diet. OBJECTIVE: Vital Signs Temperature 98.5 F 03/31/18 18:36 Pulse Rate 79 03/31/18 18:36 Respiratory Rate 18 03/31/18 18:36 Blood Pressure 139/84 03/31/18 18:36 O2 Sat by Pulse Oximetry (%) 98 03/31/18 09:00 GENERAL: Awake, alert, and fully oriented, uncomfortable, in NAD, HEAD: Normal with no signs of trauma. EYES: PERRLA, EOMI, sclera anicteric, conjunctiva clear. EARS, NOSE, THROAT:Dry mucous membranes. CHEST: CTA BL ,Breath sounds equal, left axilla positive for erythema and slight abcess drainange. HEART: tachycardic, normal S1 and S2 without murmur, rub or gallop. ABDOMEN: Soft, RLQ tenderness , not distended, normoactive bowel sounds. EXTREMITIES: 2+ pulses, warm, well-perfused. No peripheral edema. SKIN: Warm, dry, normal turgor, no rashes or lesions noted. CBCD WBC 9.7 K/mm3 (4.0-10.0) 03/31/18 05:15 RBC 4.77 M/mm3 (4.00-5.60) 03/31/18 05:15 Hgb 14.5 GM/dL (11.7-16.9) 03/31/18 05:15 Hct 39.8 % (35.4-49) 03/31/18 05:15 MCV 83.5 fl (80-96) 03/31/18 05:15 MCHC 36.4 g/dl (32.0-35.9) H 03/31/18 05:15 RDW 13.0 % (11.9-15.9) 03/31/18 05:15 Plt Count 232 K/MM3 (134-434) 03/31/18 05:15 MPV 10.1 fl (7.5-11.1) 03/31/18 05:15 CMP Sodium 141 mmol/L (136-145) 03/31/18 05:15 Potassium 3.2 mmol/L (3.5-5.1) L 03/31/18 05:15 Chloride 110 mmol/L (98-107) H 03/31/18 05:15 Carbon Dioxide 26 mmol/L (21-32) 03/31/18 05:15 Anion Gap 5 MMOL/L (8-16) L 03/31/18 05:15 BUN 10 mg/dL (7-18) 03/31/18 05:15 Creatinine 0.6 mg/dL (0.55-1.3) 03/31/18 05:15 Creat Clearance w eGFR > 60 (>60) 03/31/18 05:15 Random Glucose 151 mg/dL (74-106) H 03/31/18 05:15 Calcium 8.7 mg/dL (8.5-10.1) 03/31/18 05:15 Total Bilirubin 0.6 mg/dL (0.2-1) 03/31/18 05:15 AST 8 U/L (15-37) L 03/31/18 05:15 ALT 18 U/L (13-61) 03/31/18 05:15 Alkaline Phosphatase 66 U/L (45-117) 03/31/18 05:15 Total Protein 6.0 g/dl (6.4-8.2) L 03/31/18 05:15 Albumin 3.3 g/dl (3.4-5.0) L 03/31/18 05:15 CARDIAC ENZYMES Troponin I < 0.02 ng/ml (0.00-0.05) 03/29/18 05:31 Current Medications Generic Name Dose Route Start Last Admin Trade Name Freq PRN Reason Stop Dose Admin Acetaminophen 325 mg 03/30/18 20:17 03/31/18 13:32 Tylenol - PO 325 mg Q6H PRN Administration PAIN SCALE 6-10 Cephalexin HCl 500 mg 03/31/18 14:52 03/31/18 17:50 Keflex - PO 500 mg Q6HPO [facility] Administration Chlorhexidine Gluconate 1 applic 03/31/18 22:00 Hibiclens For Decolonization - TP HS [facility] Enoxaparin Sodium 40 mg 04/01/18 10:00 Lovenox - SQ DAILY [facility] Insulin Aspart 1 vial 03/31/18 16:30 03/31/18 18:57 Novolog Vial Sliding Scale - SQ Not Given TIDAC [facility] Protocol Insulin Aspart 1 vial 03/31/18 22:00 Novolog Vial Sliding Scale - SQ HS [facility] Protocol Insulin Detemir 40 units 03/31/18 22:00 Levemir Vial SQ HS [facility] Mupirocin 1 applic 03/31/18 22:00 Bactroban Ointment (For Decolonization) - NS 04/03/18 09:59 BID [facility] Nystatin 500,000 units 03/31/18 18:00 03/31/18 18:17 Nystatin Oral Suspension - PO Not Given Q6HPO [facility] Oxycodone HCl 10 mg 03/30/18 20:17 03/31/18 13:31 Roxicodone - PO 10 mg Q6H PRN Administration PAIN LEVEL 6-10 Pantoprazole Sodium 40 mg 03/31/18 10:00 03/31/18 12:24 Protonix - PO 40 mg DAILY [facility] Administration Polyethylene Glycol 17 gm 03/31/18 13:30 03/31/18 13:36 Miralax (For Daily Use) - PO 17 grams BID [facility] Administration Home Medications Medication Instructions Recorded Tizanidine HCl 2 mg PO [facility] 06/01/17 Insulin Glargine,Hum.rec.anlog 1 units SQ ASDIR 03/25/18 [Lantus Solostar PEN (NF)] Insulin Sliding Scale [Novolog 0 units SQ ACHS 03/25/18 Vial Sliding Scale -] Meloxicam [Mobic] 15 mg PO ASDIR 03/25/18 Atorvastatin Ca [Lipitor] 20 mg PO HS 03/29/18 Oxycodone HCl/Acetaminophen 1 each PO PRN 03/29/18 [Percocet 10-325 mg Tablet] ASSESSMENT AND PLAN: Patient is a 32 year old male with past medical history of IDDM, presented with abdominal pain, nausea and vomiting, that started 4 days ago, no fever or chills. #T2DM with DKA: s/p Insulin drip . now on levemir and sliding scale with coverage. Endocrine on the case. with BGms. patient is being tranferred to the floor. # Acute leukocytosis improved 9.7 today s/p Rocephin and flagyl . Id on the case, CT abd and pelvis oral and IV contrast, result noted no appendicitis . GI is on the case Dr. Schmidt. Surgical consult appreciated. #ILAN continue IVF . improved cr.0.8 now. DVT Px: Lovenox
[2018-03-31] MEDS: INSULIN (LEVEMIR) 100 UNITS/ML UNITS SQ SCH (21:40)
[2018-03-31] MEDS ORDERED: MUPIROCIN 2% TOPICAL OINTMENT FOR DECOLONIZATION NS SCH (22:00)
[2018-03-31] MEDS ORDERED: CHLORHEXIDINE GLUCONATE 4% CLEANSER FOR DECOLONIZATION TP SCH (22:00)
[2018-04-01] MEDS: CEPHALEXIN MONOHYDRATE 500 MG CAPSULE (UD) PO SCH ×4 (06:04→23:56)
[2018-04-01] MEDS: NYSTATIN 500,000 UNITS/5 ML SUSPENSION PO SCH ×4 (06:04→23:56)
[2018-04-01] MEDS: INSULIN SLIDING SCALE (NOVOLOG) 1 VIAL SQ SCH ×4 (06:09→22:04)
[2018-04-01] MEDS ORDERED: ENOXAPARIN NA (PORCINE) 40 MG/0.4 ML DISP.SYRIN SQ SCH (10:00)
[2018-04-01] MEDS ORDERED: PT OWN MED DRAWER 7, Y5N ONE (11:09)
[2018-04-01] MEDS: PANTOPRAZOLE 40 MG TABLET (FP) PO SCH (11:11)
[2018-04-01] MEDS: POLYETHYLENE GLYCOL 3350 119 GM BTL PO SCH ×2 (11:11→22:04)
[2018-04-01] MEDS: oxyCODONE HCL 5 MG TABLET PO PRN ×3 (11:26→23:56)
[2018-04-01] MEDS: ACETAMINOPHEN 325 MG TABLET (FP) PO PRN ×2 (11:27→16:56)
--- NOTE | 2018-04-01 11:40 | PN ---
Progress Note (short form) - Note Progress Note: Feels better C/O abd pain, vomiting once overnight Vital Signs Period Temp Pulse Resp BP Sys/Marino Pulse Ox Last 24 Hr 97.8 F-98.9 F 69-85 13-18 103-139/51-91 100 PE: AOx3 Neck: Supple, No JVD HEENT: PEERL, EOMI Lungs: CTA CVS: S1S2 Abd: lower abd tenderness Ext: No edema Neuro: No focal deficit CMP Sodium 141 mmol/L (136-145) 03/31/18 05:15 Potassium 3.2 mmol/L (3.5-5.1) L 03/31/18 05:15 Chloride 110 mmol/L (98-107) H 03/31/18 05:15 Carbon Dioxide 26 mmol/L (21-32) 03/31/18 05:15 Anion Gap 5 MMOL/L (8-16) L 03/31/18 05:15 BUN 10 mg/dL (7-18) 03/31/18 05:15 Creatinine 0.6 mg/dL (0.55-1.3) 03/31/18 05:15 Creat Clearance w eGFR > 60 (>60) 03/31/18 05:15 POC Glucometer 146 UNITS (80-120) 04/01/18 06:07 Random Glucose 151 mg/dL (74-106) H 03/31/18 05:15 Hemoglobin A1c % 12.8 % (4.2-6.3) H 03/29/18 07:50 Calcium 8.7 mg/dL (8.5-10.1) 03/31/18 05:15 Phosphorus 1.2 mg/dL (2.5-4.9) L 03/30/18 05:15 Magnesium 2.1 mg/dL (1.8-2.4) 03/30/18 05:15 Total Bilirubin 0.6 mg/dL (0.2-1) 03/31/18 05:15 AST 8 U/L (15-37) L 03/31/18 05:15 ALT 18 U/L (13-61) 03/31/18 05:15 Alkaline Phosphatase 66 U/L (45-117) 03/31/18 05:15 Troponin I < 0.02 ng/ml (0.00-0.05) 03/29/18 05:31 Total Protein 6.0 g/dl (6.4-8.2) L 03/31/18 05:15 Albumin 3.3 g/dl (3.4-5.0) L 03/31/18 05:15 Lipase 50 U/L (73-393) L 03/29/18 02:51 Current Medications Generic Name Dose Route Start Last Admin Trade Name Freq PRN Reason Stop Dose Admin Acetaminophen 325 mg 03/30/18 20:17 04/01/18 11:27 Tylenol - PO 325 mg Q6H PRN Administration PAIN SCALE 6-10 Cephalexin HCl 500 mg 03/31/18 14:52 04/01/18 11:30 Keflex - PO 500 mg Q6HPO PAOLA Administration Enoxaparin Sodium 40 mg 04/01/18 10:00 04/01/18 11:11 Lovenox - SQ 40 mg DAILY PAOLA Administration Insulin Aspart 1 vial 03/31/18 16:30 04/01/18 11:29 Novolog Vial Sliding Scale - SQ 4 units TIDAC PA[facility]A Administration Protocol Insulin Aspart 1 vial 03/31/18 22:00 03/31/18 21:41 Novolog Vial Sliding Scale - SQ Not Given HS [facility] Protocol Insulin Detemir 40 units 03/31/18 22:00 03/31/18 21:40 Levemir Vial SQ 40 units HS PAOLA Administration Nystatin 500,000 units 03/31/18 18:00 04/01/18 11:11 Nystatin Oral Suspension - PO 500,000 units Q6HPO PAOLA Administration Oxycodone HCl 10 mg 03/30/18 20:17 04/01/18 11:26 Roxicodone - PO 10 mg Q6H PRN Administration PAIN LEVEL 6-10 Pantoprazole Sodium 40 mg 03/31/18 10:00 04/01/18 11:11 Protonix - PO 40 mg DAILY PAOLA Administration Polyethylene Glycol 17 gm 03/31/18 13:30 04/01/18 11:11 Miralax (For Daily Use) - PO 17 grams BID PAOLA Administration AP: T2DM with DKA: DKA probably secondary to intercurrent illness and lack of Insulin. Nausea/Vomiting: ? Cause, CT abd shows no evidence of Acute appendicitis GI F/u Surgery consult noted Levemir 40 units daily at HS Novolog SS coverage. Electrolyte replacement as necessary Problem List - Problems (1) DKA (diabetic ketoacidoses) Code(s): E13.10 - OTH DIABETES MELLITUS WITH KETOACIDOSIS WITHOUT COMA (2) Vomiting Code(s): R11.10 - VOMITING, UNSPECIFIED
--- NOTE | 2018-04-01 14:19 | PN ---
Physical Exam: SUBJECTIVE: Patient seen and examined at bedside. Admits to nausea and 1 episode of nonbloody vomiting overnight. Admits to flatus, but denies having a BM. OBJECTIVE: Vital Signs Temperature 97.8 F 04/01/18 06:00 Pulse Rate 78 04/01/18 06:00 Respiratory Rate 18 04/01/18 06:00 Blood Pressure 124/70 04/01/18 06:00 O2 Sat by Pulse Oximetry (%) 100 03/31/18 21:00 GENERAL: AAOx3. HEENT: AT/NC. EOMI. REI. Dry mucus membranes. NECK: Supple, no LAD/JVD. LUNGS: CTA B/L. No wheezes heard. HEART: RRR. Normal S1, S2. ABDOMEN: Soft. RLQ abd tenderness to palpation. +mild epigastric tenderness, improved since yesterday. +BS in all 4Qs. EXTREMITIES: 2+ pulses, warm, well-perfused, no peripheral edema b/l. NEUROLOGICAL: Facial symmetry noted. PSYCH: Normal mood, normal affect. SKIN: Warm, dry, normal turgor, no rashes or lesions noted Laboratory Results - last 24 hr 03/31/18 03/31/18 04/01/18 16:27 21:37 06:07 POC Glucometer 238 210 146 04/01/18 11:17 POC Glucometer 163 Active Medications Acetaminophen (Tylenol -) 325 mg PO Q6H PRN PRN Reason: PAIN SCALE 6-10 Last Admin: 04/01/18 11:27 Dose: 325 mg Cephalexin HCl (Keflex -) 500 mg PO Q6HPO [facility] Last Admin: 04/01/18 11:30 Dose: 500 mg Enoxaparin Sodium (Lovenox -) 40 mg SQ DAILY [facility] Last Admin: 04/01/18 11:11 Dose: 40 mg Insulin Aspart (Novolog Vial Sliding Scale -) 1 vial SQ TIDAC [facility]; Protocol Last Admin: 04/01/18 11:29 Dose: 4 units Insulin Aspart (Novolog Vial Sliding Scale -) 1 vial SQ HS [facility]; Protocol Last Admin: 03/31/18 21:41 Dose: Not Given Insulin Detemir (Levemir Vial) 40 units SQ HS [facility] Last Admin: 03/31/18 21:40 Dose: 40 units Nystatin (Nystatin Oral Suspension -) 500,000 units PO Q6HPO [facility] Last Admin: 04/01/18 11:11 Dose: 500,000 units Oxycodone HCl (Roxicodone -) 10 mg PO Q6H PRN PRN Reason: PAIN LEVEL 6-10 Last Admin: 04/01/18 11:26 Dose: 10 mg Pantoprazole Sodium (Protonix -) 40 mg PO DAILY [facility] Last Admin: 04/01/18 11:11 Dose: 40 mg Polyethylene Glycol (Miralax (For Daily Use) -) 17 gm PO BID [facility] Last Admin: 04/01/18 11:11 Dose: 17 grams CONSULTS: GI- Dr. Schmidt Endo- Dr. Morillo Surg- Dr. Dockery IMAGING: * Abd U/S: No gallstones or acute kenneth. Slightl dense and coarse echotexture of liver suggestive of mild fatty infiltration vs. hepatoceellular dz. Echogenic densities in liver, largest 1.5 0.9 cm. * CXR: No acute chest pathology. * CTAP: No evidence of SBO, no evidence of hydroureteronephrosis, renal or ureteral stone b/l. few diverticulae w/o diverticulitis. ASSESSMENT/PLAN: 32M with past medical history of IDDM, presented with abdominal pain, nausea and vomiting, that started 4 days prior to admission. #Diabetic Ketoacidosis; Resolved. May be precipitated by infection. -Glu 206, AG 10; gap closed with improved glucose -BGMs ACHS, ISS ACHS -Levemir 40U SQ HS, per endo -Utox +opiates, +MJ #Abdominal pain; 2/2 gastroparesis -Per GI, pt agreeable to upper endoscopy tomorrow. F/u GI recs -CTAP showed no evidence of acute appendicitis; no surgical intervention needed at this time. -Oxycodone 10 mg PO Q6H PRN -Tylenol 325 mg PO Q6H PRN -Miralax 17gm PO BID -Protonix 40 mg PO QD #Elevated WBC; Resolved, now 9.7 . R/o infection as possible trigger for DKA -CXR/UA neg. Abd U/S noted above. -Per surg, no clinical or radiological evidence of an acute surgical at this time. -UCx neg, BCx neg x72h #Hyperkalemia; 3.2 today -KCl 10 MeQ x 3 bags ordered -Replete PRN, trend BMP #ILAN; Resolved. #FEN -PO hydration -recheck lytes in AM (Na, K) -FLD, NPO after midnight except meds #Prophylaxis -Lovenox 40mg sq daily, hold AM dose -Protonix 40mg IV daily #Disposition -full code -cont to monitor in ICU Visit type - Emergency Visit Emergency Visit: Yes ED Registration Date: 03/29/18 Care time: The patient presented to the Emergency Department on the above date and was hospitalized for further evaluation of their emergent condition. - New Patient This patient is new to me today: No - Critical Care Critical Care patient: No
--- NOTE | 2018-04-01 14:55 | PN ---
GI Progress Note Subjective: No acute events No lower abdominal pain Describes nausea and abdominal pain after dinner last night, diminished appetite for breakfast this morning. Tolerated lunch today, however, still with epigastric pain - Objective Vital Signs: Vital Signs Temperature 98 F 04/01/18 10:00 Pulse Rate 86 04/01/18 10:00 Respiratory Rate 18 04/01/18 10:00 Blood Pressure 123/56 L 04/01/18 10:00 O2 Sat by Pulse Oximetry (%) 98 04/01/18 09:00 Constitutional: Calm Eyes: No: Sclera Icterus Cardiovascular: Yes: Regular Rate and Rhythm Respiratory: Yes: CTA Bilaterally Gastrointestinal Inspection: No: Distention, Scars ...Auscultate: Yes: Normoactive Bowel Sounds ...Palpate: Yes: Soft, Tenderness (TTP epigastrium) ...Percussion: No: Tympanitic Edema: No (No LE edema) Neurological: Yes: Alert, Oriented Labs: CBC, BMP 03/31/18 05:15 03/31/18 05:15 Problem List - Problems (1) Epigastric pain Assessment/Plan: Suspect to be secondary to DKA / gastroparesis with subsequent bouts of retching. Given persistent nature despite improvement of glycemic control, We discussed further evaluation including upper endoscopy. We discussed alternatives to (UGIS) and potential risks of the procedure like but not limited to bleeding, perforation requiring surgery to repair, infection and sedation medication effects all of which could be potentially life threatening. He has agreed to the procedure. For now: Full liquids for dinner NPO after midnight except meds Ordered repeat BMP, Mg, Phos for today. Repletion of lytes per primary team Minimize opiate analgesia as this will further degrade GI motility Hold AM dose of Lovenox AM labs Code(s): R10.13 - EPIGASTRIC PAIN
[2018-04-01 17:09] LABS: ANION GAP 8 MMOL/L (8-16); BLOOD UREA NITROGEN 12 mg/dL (7-18); CALCIUM 8.8 mg/dL (8.5-10.1); CHLORIDE 103 mmol/L (98-107); CO2 25 mmol/L (21-32); CREATININE 0.7 mg/dL (0.55-1.3); GLUCOSE,RANDOM 297 mg/dL (74-106); MAGNESIUM 1.9 mg/dL (1.8-2.4); POTASSIUM 3.3 mmol/L (3.5-5.1); SODIUM 136 mmol/L (136-145)
[2018-04-01] MEDS ORDERED: POLYETHYLENE GLYCOL 3350 119 GM BTL PO ONE (17:09)
[2018-04-01] MEDS ORDERED: POLYETHYLENE GLYCOL 3350 119 GM BTL PO SCH (17:15)
[2018-04-01] MEDS: KCL 10 MEQ IVPB 10 MEQ/100 ML INFUS.BAG IVPB SCH ×2 (17:55→22:55)
--- NOTE | 2018-04-01 20:46 | PN ---
Teaching Attending Note Name of Resident: Cynthia Gutierrez ATTENDING PHYSICIAN STATEMENT I saw and evaluated the patient. I reviewed the resident's note and discussed the case with the resident. I agree with the resident's findings and plan as documented. SUBJECTIVE: Patient is better with no acute distress. OBJECTIVE: Vital Signs Temperature 98.0 F 04/01/18 17:32 Pulse Rate 62 04/01/18 17:32 Respiratory Rate 18 04/01/18 17:32 Blood Pressure 108/53 L 04/01/18 17:32 O2 Sat by Pulse Oximetry (%) 98 04/01/18 09:00 GENERAL: Awake, alert, and fully oriented, uncomfortable, in NAD, HEAD: Normal with no signs of trauma. EYES: PERRLA, EOMI, sclera anicteric, conjunctiva clear. EARS, NOSE, THROAT:Dry mucous membranes. CHEST: CTA BL ,Breath sounds equal, left axilla positive for erythema and slight abcess drainange. HEART: tachycardic, normal S1 and S2 without murmur, rub or gallop. ABDOMEN: Soft, RLQ tenderness , not distended, normoactive bowel sounds. EXTREMITIES: 2+ pulses, warm, well-perfused. No peripheral edema. SKIN: Warm, dry, normal turgor, no rashes or lesions noted. CBCD WBC 9.7 K/mm3 (4.0-10.0) 03/31/18 05:15 RBC 4.77 M/mm3 (4.00-5.60) 03/31/18 05:15 Hgb 14.5 GM/dL (11.7-16.9) 03/31/18 05:15 Hct 39.8 % (35.4-49) 03/31/18 05:15 MCV 83.5 fl (80-96) 03/31/18 05:15 MCHC 36.4 g/dl (32.0-35.9) H 03/31/18 05:15 RDW 13.0 % (11.9-15.9) 03/31/18 05:15 Plt Count 232 K/MM3 (134-434) 03/31/18 05:15 MPV 10.1 fl (7.5-11.1) 03/31/18 05:15 CMP Sodium 136 mmol/L (136-145) 04/01/18 15:00 Potassium 3.3 mmol/L (3.5-5.1) L 04/01/18 15:00 Chloride 103 mmol/L (98-107) 04/01/18 15:00 Carbon Dioxide 25 mmol/L (21-32) 04/01/18 15:00 Anion Gap 8 MMOL/L (8-16) 04/01/18 15:00 BUN 12 mg/dL (7-18) 04/01/18 15:00 Creatinine 0.7 mg/dL (0.55-1.3) 04/01/18 15:00 Creat Clearance w eGFR > 60 (>60) 04/01/18 15:00 Random Glucose 297 mg/dL (74-106) H 04/01/18 15:00 Calcium 8.8 mg/dL (8.5-10.1) 04/01/18 15:00 Total Bilirubin 0.6 mg/dL (0.2-1) 03/31/18 05:15 AST 8 U/L (15-37) L 03/31/18 05:15 ALT 18 U/L (13-61) 03/31/18 05:15 Alkaline Phosphatase 66 U/L (45-117) 03/31/18 05:15 Total Protein 6.0 g/dl (6.4-8.2) L 03/31/18 05:15 Albumin 3.3 g/dl (3.4-5.0) L 03/31/18 05:15 CARDIAC ENZYMES Troponin I < 0.02 ng/ml (0.00-0.05) 03/29/18 05:31 Current Medications Generic Name Dose Route Start Last Admin Trade Name Freq PRN Reason Stop Dose Admin Acetaminophen 325 mg 03/30/18 20:17 04/01/18 16:56 Tylenol - PO 325 mg Q6H PRN Administration PAIN SCALE 6-10 Bacitracin 1 applic 04/01/18 22:00 Bacitracin - TP BID PAOLA Cephalexin HCl 500 mg 03/31/18 14:52 04/01/18 17:56 Keflex - PO 500 mg Q6HPO [facility]OLA Administration Enoxaparin Sodium 40 mg 04/01/18 10:00 04/01/18 11:11 Lovenox - SQ 40 mg DAILY [facility] Administration Insulin Aspart 1 vial 03/31/18 16:30 04/01/18 17:55 Novolog Vial Sliding Scale - SQ 8 units TIDAC [facility] Administration Protocol Insulin Aspart 1 vial 03/31/18 22:00 03/31/18 21:41 Novolog Vial Sliding Scale - SQ Not Given HS [facility] Protocol Insulin Detemir 40 units 03/31/18 22:00 03/31/18 21:40 Levemir Vial SQ 40 units HS [facility] Administration Nystatin 500,000 units 03/31/18 18:00 04/01/18 18:06 Nystatin Oral Suspension - PO 500,000 units Q6HPO [facility] Administration Oxycodone HCl 10 mg 03/30/18 20:17 04/01/18 16:55 Roxicodone - PO 10 mg Q6H PRN Administration PAIN LEVEL 6-10 Pantoprazole Sodium 40 mg 03/31/18 10:00 04/01/18 11:11 Protonix - PO 40 mg DAILY [facility] Administration Polyethylene Glycol 17 gm 03/31/18 13:30 04/01/18 11:11 Miralax (For Daily Use) - PO 17 grams BID PAOLA Administration Home Medications Medication Instructions Recorded RX: Tizanidine HCl 2 mg PO ASDIR 06/01/17 Insulin Glargine,Hum.rec.anlog 1 units SQ ASDIR 03/25/18 [Lantus Solostar PEN (NF)] Insulin Sliding Scale [Novolog 0 units SQ ACHS 03/25/18 Vial Sliding Scale -] Meloxicam [Mobic] 15 mg PO ASDIR 03/25/18 Atorvastatin Ca [Lipitor] 20 mg PO HS 03/29/18 Oxycodone HCl/Acetaminophen 1 each PO PRN 03/29/18 [Percocet 10-325 mg Tablet] ASSESSMENT AND PLAN: Patient is a 32 year old male with past medical history of IDDM, presented with abdominal pain, nausea and vomiting, that started 4 days ago, no fever or chills. #Acute abcess of right axilla: on keflex now day #2, follow the culture wound culture ws send today. #T2DM with DKA: s/p Insulin drip . now on levemir and sliding scale with coverage. Endocrine on the case. with BGms. s/p icu ,s/p insulin drip. # Acute leukocytosis improved 9.7 today s/p Rocephin and flagyl . Id on the case, CT abd and pelvis oral and IV contrast, result noted no appendicitis . GI is on the case Dr. Schmidt. Surgical consult appreciated. #ILAN continue IVF . improved cr.0.8 now. DVT Px: Lovenox
[2018-04-01] MEDS: BACITRACIN 15 GM TUBE TOPICAL OINTMENT TP SCH (21:57)
[2018-04-01] MEDS: INSULIN (LEVEMIR) 100 UNITS/ML UNITS SQ SCH (21:58)
[2018-04-02] MEDS: NYSTATIN 500,000 UNITS/5 ML SUSPENSION PO SCH ×2 (06:11→13:10)
[2018-04-02] MEDS: CEPHALEXIN MONOHYDRATE 500 MG CAPSULE (UD) PO SCH ×2 (06:11→13:09)
[2018-04-02] MEDS: INSULIN SLIDING SCALE (NOVOLOG) 1 VIAL SQ SCH ×3 (06:13→16:34)
[2018-04-02] MEDS: POLYETHYLENE GLYCOL 3350 119 GM BTL PO SCH (09:49)
[2018-04-02] MEDS: BACITRACIN 15 GM TUBE TOPICAL OINTMENT TP SCH (09:49)
[2018-04-02] MEDS: PANTOPRAZOLE 40 MG TABLET (FP) PO SCH (09:49)
[2018-04-02 10:02] LABS: ANION GAP 9 MMOL/L (8-16); BLOOD UREA NITROGEN 11 mg/dL (7-18); CALCIUM 8.4 mg/dL (8.5-10.1); CHLORIDE 108 mmol/L (98-107); CO2 24 mmol/L (21-32); CREATININE 0.6 mg/dL (0.55-1.3); GLUCOSE,RANDOM 212 mg/dL (74-106); MAGNESIUM 1.9 mg/dL (1.8-2.4); POTASSIUM 3.3 mmol/L (3.5-5.1); SODIUM 141 mmol/L (136-145)
--- NOTE | 2018-04-02 12:47 | PN ---
Progress Note (short form) - Note Progress Note: Brief GI note EGD performed today revealing LA grade D linear esophagitis (distal esophagus), mild antral erythema, otherwise unremarkable (biopsies taken). See scanned endoscopy report for full details. Recommendations: -PPI bid -Antireflux measures -Avoid NSAIDs -Follow up biopsy results -EGD in 8-12 weeks to assess healing of esophagitis -Abd xray in view of persisting crampy lower abdominal pain (possible component of constipation) -
[2018-04-02] MEDS: ACETAMINOPHEN 325 MG TABLET (FP) PO PRN (13:10)
[2018-04-02] MEDS: oxyCODONE HCL 5 MG TABLET PO PRN (13:10)
[2018-04-02 14:24] VITALS: BP 130/77; PULSE 80; TEMP 98.5
[2018-04-02] MEDS ORDERED: POTASSIUM CHLORIDE TABS 20 MEQ TABLET.ER (FP) PO ONE (16:15)
--- NOTE | 2018-04-02 16:16 | PN ---
Teaching Attending Note Name of Resident: Cynthia Gutierrez ATTENDING PHYSICIAN STATEMENT I saw and evaluated the patient. I reviewed the resident's note and discussed the case with the resident. I agree with the resident's findings and plan as documented. SUBJECTIVE: No fever or chills . No Vomitng. abd pain is minimal . OBJECTIVE: NAD CV HLP, : RRr Lungs: CTAB Abd: soft, ND, TTP in suprapubic area nad RLQ and epigastric area LE : no edema ASSESSMENT AND PLAN: 32 y/o man with h/o DM II, HL, and non compliance who presented with N/V and was found to have DKA . 1- DKA : resolved. takes 60 of levemir at home and 10 units of novolog before meals. case d/w endo, recs to cont 50 of levemir HS at dc and 10 of novolog with meals glucometer and strips/lancets prescribed 2- N/V: and abd pain. EGD with esophagitis CT scan reviewed on admission. he refused KUB today . - cont PPI - cont bowel regimen - follow with GI for bx results 3- L axilary folliculitis : leukocytosis resolved cont keflex x 3 more days 4- he was educated about compliance importance
--- NOTE | 2018-04-02 16:30 | DS ---
Physical Exam: SUBJECTIVE: Patient seen and examined OBJECTIVE: Vital Signs Period Temp Pulse Resp BP Sys/Marino Pulse Ox Last 24 Hr 98.0 F-99.1 F 56-80 16-18 104-130/53-86 97-100 PHYSICAL EXAM GENERAL: The patient is awake, alert, and fully oriented, in no acute distress. HEAD: Normal with no signs of trauma. EYES: PERRL, extraocular movements intact, sclera anicteric, conjunctiva clear. ENT: Ears normal, nares patent, oropharynx clear without exudates, moist mucous membranes. NECK: Trachea midline, full range of motion, supple. LUNGS: Breath sounds equal, clear to auscultation bilaterally, no wheezes, no crackles, no accessory muscle use. HEART: Regular rate and rhythm, S1, S2 without murmur, rub or gallop. ABDOMEN: Soft, nontender, nondistended, normoactive bowel sounds, no guarding, no rebound, no hepatosplenomegaly, no masses. EXTREMITIES: 2+ pulses, warm, well-perfused, no edema. NEUROLOGICAL: Cranial nerves II through XII grossly intact. Normal speech, gait not observed. PSYCH: Normal mood, normal affect. SKIN: Warm, dry, normal turgor, no rashes or lesions noted. LABS Laboratory Results - last 24 hr 04/01/18 04/01/18 04/01/18 15:00 17:48 22:02 Sodium 136 Potassium 3.3 L Chloride 103 Carbon Dioxide 25 Anion Gap 8 BUN 12 Creatinine 0.7 Creat Clearance w eGFR > 60 POC Glucometer 280 293 Random Glucose 297 H Calcium 8.8 Phosphorus 3.0 Magnesium 1.9 04/02/18 04/02/18 04/02/18 06:11 09:18 11:03 Sodium 141 Potassium 3.3 L Chloride 108 H Carbon Dioxide 24 Anion Gap 9 BUN 11 Creatinine 0.6 Creat Clearance w eGFR > 60 POC Glucometer 281 171 Random Glucose 212 H Calcium 8.4 L Phosphorus Magnesium 1.9 HOSPITAL COURSE: Date of Admission:03/29/18 IMAGING: * Abd U/S: No gallstones or acute kenneth. Slightly dense and coarse echotexture of liver suggestive of mild fatty infiltration vs. hepatoceellular dz. Echogenic densities in liver, largest 1.5 0.9 cm. * CXR: No acute chest pathology. * CTAP: No evidence of SBO, no evidence of hydroureteronephrosis, renal or ureteral stone b/l. few diverticulae w/o diverticulitis. 32M with past medical history of IDDM, presented with abdominal pain, nausea and vomiting admitted for diabetic ketoacidosis. Upon initial exam, pt was found to have BG of 498, pH 7.09, Acetone 2+, with anion gap 29. Pt was subsequently admitted to the ICU and placed on insulin drip. Abd U/S was done that showed mild fatty infiltration and echogenic densities in the liver. Due to elevation in WBC and abd u/s findings, GI was consulted. Upon GI eval, CTAP was done that showed no evidence of SBO, hydronephrosis, renal/ureteral stone as cause of abd pain. Pt was then seen and evaluated by surgery and found no indication for surgical intervention. During hospital stay, anion gap closed and pt was taken off insulin drip, and placed on ISS. He was subsequently seen and assessed by endo and was started on long-acting insulin as well. Pt's symptoms improved and was later transferred to med-surg unit. Due to persistent abdominal pain, pt underwent endoscopy and was found to have esophagitis. Throughout admission, pt's symptoms improved and was able to tolerate PO diet. Additionally, he was found to have an abscess in the L axilla that was subsequently drained with no complications. Upon discovery of abscess, pt was afebrile with no WBC. He given Keflex for antibiotic coverage. He was discharged to home and advised to follow up with his PCP, endo, and GI with recommendation to continue taking Insulin, bowel regimen, Protonix, and Keflex. Date of Discharge: 04/02/18 Minutes to complete discharge: 40 Discharge Summary Reason For Visit: DIABETIC KETOACIDOSIS Condition: Improved - Instructions Diet, Activity, Other Instructions: You were seen in the hospital for complaints of abdominal pain, nausea, and vomiting. In the hospital you were evaluated and found to have a condition called diabetic ketoacidosis (DKA). This happens when your blood sugars rise to dangerously high levels which can be caused by medication non-compliance or infection. CT imaging of your abdomen was done and you were assessed by a surgeon. You were not found to have an acute condition necessitating the need for surgery. Additionally, you were seen by a GI doctor to assess your abdominal pain. An endoscopy was done and you were found to have esophagitis ( inflammation of your esophagus). Your symptoms improved during your hospital stay. You are being discharged home. MEDICAL RECOMMENDATIONS We have made the following changes to your medication(s): Stop taking Levemir 40U. Instead, please take Levemir 50U once every night. Please continue to take Novolog 10U three times a day before every meal. You are also being prescribed a glucometer for home. Please test your blood sugar every morning prior to eating and record your numbers. You will this for your outpatient follow up with your pantry attendant. Please take Keflex 500 mg every 6 hours by mouth for 3 more days. You may start this medication at midnight tonight. Please take Protonix 40 mg twice a day by mouth. Please take Miralax 17 gm once a day for constipation. PLEASE DO NOT TAKE NSAIDS (Advil, Aleve, Naproxen, Motrin, etc.) THIS MAY WORSEN YOUR ABDOMINAL PAIN. *It is HIGHLY advised that you continue taking your home medications as directed. Please do not miss any doses. CONSULT RECOMMENDATIONS Please follow up with your primary care physician, Dr. Goel, within 1 week. Please follow up with your GI doctor, Dr. Schmidt, within 1 week to discuss the results of your endoscopy. You will need a repeat endoscopy in 8-12 weeks to assess the healing of your esophagitis. Please follow up with your pantry attendant, Dr. Morillo, for further management of your insulin regimen. If you experience worsening fever/chills, nausea/vomiting, persistent abdominal pain, seizures, mental status changes, chest pain, shortness of breath, difficulty breathing, please proceed to your nearest emergency room immediately. biopsy results neds to be followed Referrals: Victorino Goel MD [Primary Care Provider] - 1 Week Dewayne Schmidt MD [Staff Physician] - 1 Week Disposition: HOME - Home Medications Comprehensive Discharge Medication List: Ambulatory Orders Insulin Sliding Scale [Novolog Vial Sliding Scale -] 10 units SQ AC 03/25/18 Atorvastatin Ca [Lipitor] 20 mg PO HS 03/29/18 Oxycodone HCl/Acetaminophen [Percocet 10-325 mg Tablet] 1 each PO PRN PRN Cephalexin Monohydrate [Keflex -] 500 mg PO Q6HPO #12 capsule 04/02/18 Insulin Glargine,Hum.rec.anlog [Lantus] 50 unit SQ HS #1 vial 04/02/18 Metformin HCl [Metformin HCl ER] 1,000 mg PO BID 04/02/18 Miscellaneous Medical Supply [Glucometer Device] 1 each SQ ASDIR #1 kit [employer] [Glucometer Test Strips #50] 1 each AD ASDIR #1 box 04/02/18 Pantoprazole Sodium [Protonix -] 40 mg PO BID #60 tablet.ec 04/02/18 Polyethylene Glycol 3350 [Miralax 119 gm Btl -] 17 gm PO DAILY #2 bottle Sennosides [Senna] 8.6 mg PO DAILY #30 tablet 04/02/18 This patient is new to me today: Yes Date on this admission: 04/02/18 Emergency Visit: Yes ED Registration Date: 03/29/18 Care time: The patient presented to the Emergency Department on the above date and was hospitalized for further evaluation of their emergent condition. Critical Care patient: No - Discharge Referral Referred to [facility] No
--- NOTE | 2018-04-02 16:52 | PN ---
Progress Note (short form) - Note Progress Note: Feels good No complaints Vital Signs Period Temp Pulse Resp BP Sys/Marino Pulse Ox Last 24 Hr 98.0 F-99.1 F 56-80 16-18 104-130/53-86 97-100 PE: AOx3 Neck: Supple, No JVD HEENT: PEERL, EOMI Lungs: CTA CVS: S1S2 Abd: lower abd tenderness Ext: No edema Neuro: No focal deficit CMP Sodium 141 mmol/L (136-145) 04/02/18 09:18 Potassium 3.3 mmol/L (3.5-5.1) L 04/02/18 09:18 Chloride 108 mmol/L (98-107) H 04/02/18 09:18 Carbon Dioxide 24 mmol/L (21-32) 04/02/18 09:18 Anion Gap 9 MMOL/L (8-16) 04/02/18 09:18 BUN 11 mg/dL (7-18) 04/02/18 09:18 Creatinine 0.6 mg/dL (0.55-1.3) 04/02/18 09:18 Creat Clearance w eGFR > 60 (>60) 04/02/18 09:18 POC Glucometer 171 UNITS (80-120) 04/02/18 11:03 Random Glucose 212 mg/dL (74-106) H 04/02/18 09:18 Hemoglobin A1c % 12.8 % (4.2-6.3) H 03/29/18 07:50 Calcium 8.4 mg/dL (8.5-10.1) L 04/02/18 09:18 Phosphorus 3.0 mg/dL (2.5-4.9) 04/01/18 15:00 Magnesium 1.9 mg/dL (1.8-2.4) 04/02/18 09:18 Total Bilirubin 0.6 mg/dL (0.2-1) 03/31/18 05:15 AST 8 U/L (15-37) L 03/31/18 05:15 ALT 18 U/L (13-61) 03/31/18 05:15 Alkaline Phosphatase 66 U/L (45-117) 03/31/18 05:15 Troponin I < 0.02 ng/ml (0.00-0.05) 03/29/18 05:31 Total Protein 6.0 g/dl (6.4-8.2) L 03/31/18 05:15 Albumin 3.3 g/dl (3.4-5.0) L 03/31/18 05:15 Lipase 50 U/L (73-393) L 03/29/18 02:51 Current Medications Generic Name Dose Route Start Last Admin Trade Name Freq PRN Reason Stop Dose Admin Acetaminophen 325 mg 03/30/18 20:17 04/02/18 13:10 Tylenol - PO 325 mg Q6H PRN Administration PAIN SCALE 6-10 Bacitracin 1 applic 04/01/18 22:00 04/02/18 09:49 Bacitracin - TP 1 applic BID PAOLA Administration Cephalexin HCl 500 mg 03/31/18 14:52 04/02/18 13:09 Keflex - PO 500 mg Q6HPO PAOLA Administration Enoxaparin Sodium 40 mg 04/01/18 10:00 04/01/18 11:11 Lovenox - SQ 40 mg DAILY PAOLA Administration Insulin Aspart 1 vial 03/31/18 16:30 04/02/18 16:34 Novolog Vial Sliding Scale - SQ Not Given TIDAC [facility] Protocol Insulin Aspart 1 vial 03/31/18 22:00 04/01/18 22:04 Novolog Vial Sliding Scale - SQ 4 units HS PAOLA Administration Protocol Insulin Detemir 40 units 03/31/18 22:00 04/01/18 21:58 Levemir Vial SQ 40 units HS PAOLA Administration Nystatin 500,000 units 03/31/18 18:00 04/02/18 13:10 Nystatin Oral Suspension - PO 500,000 units Q6HPO PAOLA Administration Oxycodone HCl 10 mg 03/30/18 20:17 04/02/18 13:10 Roxicodone - PO 10 mg Q6H PRN Administration PAIN LEVEL 6-10 Pantoprazole Sodium 40 mg 03/31/18 10:00 04/02/18 09:49 Protonix - PO 40 mg DAILY PAOLA Administration Polyethylene Glycol 17 gm 03/31/18 13:30 04/02/18 09:49 Miralax (For Daily Use) - PO Not Given BID [facility] AP: T2DM with DKA: DKA probably secondary to intercurrent illness and lack of Insulin. Discussed need to take Insulin as prescribed to prevent further episodes of DKA Nausea/Vomiting: resolved CT abd shows no evidence of Acute appendicitis Esophagitis: S/P EGD Discharge on Levemir 50 units daily at Novolog SS coverage. F/u in office in one week Problem List - Problems (1) DKA (diabetic ketoacidoses) Code(s): E13.10 - OTH DIABETES MELLITUS WITH KETOACIDOSIS WITHOUT COMA (2) Vomiting Code(s): R11.10 - VOMITING, UNSPECIFIED
--- NOTE | 2018-04-03 11:26 | PATH ---
Surgical Pathology Report Patient Name: GEORGETTE WILSON Med. Rec. #: [id number] /Age/Gender: 1985 (Age: 32) / M Account: [id number] Location: [facility] MED/SURG Taken: 04/02/2018 Received: 04/02/2018 Reported: 04/03/2018 Physicians: Guadalupe Childs MD Specimen(s) Received A: BIOPSY SMALL BOWEL B: BX ANTRUM Clinical History Abdominal pain, nausea, vomiting Postoperative diagnosis: Esophagitis Final Diagnosis A. SMALL BOWEL, BIOPSY: SMALL BOWEL MUCOSA WITHOUT SIGNIFICANT PATHOLOGIC FINDINGS. B. STOMACH, ANTRUM, BIOPSY: GASTRIC ANTRAL MUCOSA WITH MILD CHRONIC GASTRITIS. IMMUNOHISTOCHEMICAL STAIN FOR H. PYLORI IS NEGATIVE. Electronically Signed Amanda Cheatham M.D. Gross Description A. Received in formalin, labeled "biopsy small bowel" are 2 hough, irregular portions of soft tissue measuring 0.2 and 0.4 cm. in greatest dimension. The specimens are submitted in toto in one cassette. B. Received in formalin, labeled "biopsy antrum" is a hough, irregular portion of soft tissue measuring 0.4 cm. in greatest dimension. The specimen is submitted in toto in one cassette. /04/02/2018 saudi04/02/2018
== END 2018-04-02 17:58 | disposition home or self-care (01) | DRG 420 ==
LOC: JER 02:19 → JERBED 04:26 → JICU 06:18 → J7W 03-31 15:49
PROVIDERS: ADMIT Internal Medicine; ATTEND Internal Medicine
PROC: 0DB68ZX Excision of Stomach, Via Natural or Artificial Opening Endoscopic, Diagnostic (ICD-10-PCS; 2018-04-02)
PROC: 0DB98ZX Excision of Duodenum, Via Natural or Artificial Opening Endoscopic, Diagnostic (ICD-10-PCS; principal; 2018-04-02 11:45)
DX: E11.10 Type 2 diabetes mellitus with ketoacidosis without coma (principal); R00.0 Tachycardia, unspecified; F17.210 Nicotine dependence, cigarettes, uncomplicated; D72.829 Elevated white blood cell count, unspecified; E11.65 Type 2 diabetes mellitus with hyperglycemia; E66.9 Obesity, unspecified; Z68.31 Body mass index [BMI] 31.0-31.9, adult; M54.89 Other dorsalgia; N17.9 Acute kidney failure, unspecified; E87.3 Alkalosis; D64.9 Anemia, unspecified; F12.10 Cannabis abuse, uncomplicated; K31.89 Other diseases of stomach and duodenum; E11.43 Type 2 diabetes mellitus with diabetic autonomic (poly)neuropathy; K31.84 Gastroparesis; E87.5 Hyperkalemia; E87.1 Hypo-osmolality and hyponatremia; L02.411 Cutaneous abscess of right axilla; E87.6 Hypokalemia; K76.0 Fatty (change of) liver, not elsewhere classified; R06.82 Tachypnea, not elsewhere classified; B37.0 Candidal stomatitis; K52.89 Other specified noninfective gastroenteritis and colitis; E78.5 Hyperlipidemia, unspecified; R11.10 Vomiting, unspecified; K20.8 Other esophagitis; L73.8 Other specified follicular disorders; R11.2 Nausea with vomiting, unspecified; Z91.19 Patient's noncompliance with other medical treatment and regimen; Z79.4 Long term (current) use of insulin
CPT/HCPCS: 36415; 36600; 71045-TC-FY; 74177-TC; 76705-TC; 80048; 80053; 80307; 81003; 81015; 82009; 82375; 82803; 82962; 83036; 83050; 83690; 83735; 84100; 84484; 85025; 87040; 87070; 87086; 87186; 87205; 88305-TC; 93005; 93010; 99283-25; J0131

== ENCOUNTER 2018-06-21 16:38 | Observation (INO) | payer OTHER ==
[2018-06-21] MEDS ORDERED: DEXAMETHASONE LIQUID 0.5 MG/5 ML 240 ML BULK BOTTLE PO ONE (17:26)
[2018-06-21] MEDS ORDERED: diazePAM 2 MG TABLET PO ONE (17:26)
[2018-06-21] MEDS ORDERED: KETOROLAC TROMETHAMINE 60 MG/2 ML VIAL IM ONE (17:26)
[2018-06-21] MEDS ORDERED: KETOROLAC TROMETHAMINE 60 MG/2 ML VIAL ONE (17:27)
[2018-06-21] MEDS ORDERED: diazePAM 2 MG TABLET ONE (17:28)
[2018-06-21] MEDS ORDERED: DEXAMETHASONE SOD PHOSPHATE 10 MG/1 ML VIAL ONE (17:28)
--- NOTE | 2018-06-21 17:40 | PDOC ---
History of Present Illness - General Chief Complaint: Chronic pain Stated Complaint: BACK AND LEG PAIN Time Seen by Provider: 06/21/18 16:45 History Source: Patient Exam Limitations: No Limitations Past History - Past Medical History Allergies/Adverse Reactions: Allergies Allergy/AdvReac Type Severity Reaction Status Date / Time No Known Allergies Allergy Verified 03/29/18 02:41 Home Medications: Ambulatory Orders Insulin Sliding Scale [Novolog Vial Sliding Scale -] 10 units SQ AC 03/25/18 Atorvastatin Ca [Lipitor] 20 mg PO HS 03/29/18 Oxycodone HCl/Acetaminophen [Percocet 10-325 mg Tablet] 1 each PO PRN PRN Polyethylene Glycol 3350 [Miralax 119 gm Btl -] 17 gm PO DAILY #2 bottle Sennosides [Senna] 8.6 mg PO DAILY #30 tablet 04/02/18 metFORMIN HCL [Metformin ER Osmotic] 1,000 mg PO BID 04/02/18 Gabapentin 300 mg PO ASDIR 06/21/18 COPD: No DVT: No Diabetes: Yes - Immunization History Immunization Up to Date: Yes - Suicide/Smoking/Psychosocial Hx Smoking Status: No Smoking History: Unknown if ever smoked Have you smoked in the past 12 months: No Number of Cigarettes Smoked Daily: 10 'Breaking Loose' booklet given: 02/18/17 Hx Alcohol Use: No Drug/Substance Use Hx: No Substance Use Type: None Hx Substance Use Treatment: No Review of Systems - Review of Systems Able to Perform ROS?: Yes Comments:: 06/21/18 17:40 CONSTITUTIONAL: Absent: fever, chills, diaphoresis, generalized weakness, malaise, loss of appetite HEENT: Absent: rhinorrhea, nasal congestion, throat pain, throat swelling, difficulty swallowing, mouth swelling, ear pain, eye pain, visual Changes CARDIOVASCULAR: Absent: chest pain, loss of consciousness, palpitations, irregular heart rate, peripheral edema RESPIRATORY: Absent: cough, shortness of breath, dyspnea with exertion, orthopnea, wheezing, stridor, hemoptysis GASTROINTESTINAL: Absent: abdominal pain, abdominal distension, nausea, vomiting, diarrhea, constipation, melena, hematochezia GENITOURINARY: Absent: dysuria, frequency, urgency, hesitancy, hematuria, flank pain, genital pain MUSCULOSKELETAL: Present: low back pain radiating down to the legs b/l. Absent: joint swelling SKIN: Absent: rash, itching, pallor HEMATOLOGIC/IMMUNOLOGIC: Absent: easy bleeding, easy bruising, lymphadenopathy, frequent infections ENDOCRINE: Absent: unexplained weight gain, unexplained weight loss, heat intolerance, cold intolerance NEUROLOGIC: Absent: headache, focal weakness or paresthesias, dizziness, unsteady gait, seizure, mental status changes, bladder or bowel incontinence PSYCHIATRIC: Absent: anxiety, depression, suicidal or homicidal ideation, hallucinations. Is the patient limited Mohawk proficient: No *Physical Exam - Vital Signs Last Vital Signs Temp Pulse Resp BP Pulse Ox 95 H 24 H 134/81 100 06/21/18 16:43 06/21/18 16:43 06/21/18 16:43 06/21/18 16:43 - Physical Exam Comments: 06/21/18 18:01 GENERAL: Well developed, well nourished. Awake and alert. Crying and writhing in pain HEENT: Normocephalic, atraumatic. PERRLA, EOMI. No conjunctival pallor. Sclera are non- icteric. Moist mucous membranes. Oropharynx is clear. NECK: Supple. Full ROM. No JVD. Carotid pulses 2+ and symmetric, without bruits. No thyromegaly. No lymphadenopathy. CARDIOVASCULAR: Regular rate and rhythm. No murmurs, rubs, or gallops. Distal pulses are 2+ and symmetric. PULMONARY: No evidence of respiratory distress. Lungs clear to auscultation bilaterally. No wheezing, rales or rhonchi. ABDOMINAL: Soft. Non-tender. Non-distended. No rebound or guarding. No organomegaly. Normoactive bowel sounds. MUSCULOSKELETAL Unable to fully examine d/t pain. Severe TTP of the low back b/l from T12 to S1. No CVA tenderness. EXTREMITIES: Unable to examine d/t pain No cyanosis. No clubbing. No edema. SKIN: Warm and dry. Normal capillary refill. No rashes. No jaundice. NEUROLOGICAL: Alert, awake, appropriate. Cranial nerves 2-12 intact. No deficits to light touch and temperature in face, upper extremities and lower extremities. No motor deficits in the in face, upper extremities and lower extremities. Normoreflexic in the upper and lower extremities. Normal speech. Toes are down- going bilaterally. Gait is normal without ataxia. PSYCHIATRIC: Cooperative. Good eye contact. Appropriate mood and affect. Medical Decision Making - Medical Decision Making 06/21/18 18:07 The patient is a 33-year-old male with past medical history of chronic low back pain, who presents to the ER today for an exacerbation of his low back pain. Patient is crying during the interview due to pain. Most of the HPI is obtained from the patient's girlfriend. The girlfriend states that his pain increased today. He is unsure if he fell or bent over at a weird angle. She states she has been taking more of his Percocet than prescribed for increased pain. A/P: back pain Patient crying and hyperventilating in exam room due to pain. Extremely tender to palpation of the low back and T12 down to S1. Unable to perform rest the back exam due to pain. Toradol, Decadron and Valium ordered for pain Little relief from the medication. Patient be transferred to the main ED for further evaluation. Sign out given to the charge nurse Frances and Dr. Dill. *DC/Admit/Observation/Transfer Diagnosis at time of Disposition: Back pain Qualifiers: Back pain location: low back pain Chronicity: acute Back pain laterality: bilateral Sciatica presence: with sciatica Sciatica laterality: bilateral sciatica Qualified Code(s): M54.42 - Lumbago with sciatica, left side; M54.41 - Lumbago with sciatica, right side - Referrals - Patient Instructions - Post Discharge Activity
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
[2018-06-21] MEDS ORDERED: HYDROmorphone HCL CARPU-JECT 2 MG/1 ML DISP.SYRIN IVPUSH ONE (19:10)
[2018-06-21] MEDS ORDERED: HYDROmorphone HCl 2 MG/ML VIAL ONE ×2 (19:36→22:04)
[2018-06-21 19:53] LABS: BASO % 0.7 % (0-2.0); EOS % 1.6 % (0-4.5); HEMATOCRIT 43.3 % (35.4-49); HEMOGLOBIN 14.8 GM/dL (11.7-16.9); LYMPH % 26.2 % (8-40); MCH 29.4 pg (25.7-33.7); MCHC 34.1 g/dl (32.0-35.9); MEAN CELL VOLUME 86.1 fl (80-96); MEAN PLT VOLUME 9.8 fl (7.5-11.1); MONO % 4.5 % (3.8-10.2); PLATELET COUNT 268 K/MM3 (134-434); RBC 5.03 M/mm3 (4.00-5.60); RDW 12.9 % (11.9-15.9); WHITE BLOOD COUNT 9.2 K/mm3 (4.0-10.0)
[2018-06-21 20:18] LABS: ALBUMIN 3.9 g/dl (3.4-5.0); ALK PHOS 70 U/L (45-117); ANION GAP 10 MMOL/L (8-16); BILIRUBIN,TOTAL 0.4 mg/dL (0.2-1); BLOOD UREA NITROGEN 16 mg/dL (7-18); CALCIUM 9.4 mg/dL (8.5-10.1); CHLORIDE 99 mmol/L (98-107); CO2 24 mmol/L (21-32); CREATININE 1.1 mg/dL (0.55-1.3); POTASSIUM 4.3 mmol/L (3.5-5.1); SGOT/AST 13 U/L (15-37); SGPT/ALT 23 U/L (13-61); SODIUM 133 mmol/L (136-145); TOT PROT 7.1 g/dl (6.4-8.2)
[2018-06-21 20:20] LABS: GLUCOSE,RANDOM 444 mg/dL (74-106)
[2018-06-21] MEDS ORDERED: SODIUM CHLORIDE 1,000 ML IV STA (20:24)
[2018-06-21] MEDS ORDERED: INSULIN REGULAR HUMAN 100 UNITS/ML *VIAL IVPUSH ONE (20:36)
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
[2018-06-21] MEDS ORDERED: HYDROmorphone HCl 2 MG/ML VIAL IVPUSH ONE (21:26)
[2018-06-21] MEDS ORDERED: diazePAM 5 MG TABLET PO ONE (21:28)
[2018-06-21] MEDS ORDERED: diazePAM 5 MG TABLET ONE (22:04)
[2018-06-21] MEDS ORDERED: INSULIN REGULAR HUMAN 100 UNITS/ML *VIAL ONE (22:05)
[2018-06-21 22:26] LABS: PH,URINE 8.5 (5.0-8.0); URINE APPEARANCE CLEAR; URINE BILIRUBIN NEGATIVE (NEGATIVE); URINE COLOR YELLOW; URINE GLUCOSE (UA) 3+ (NEGATIVE); URINE KETONE NEGATIVE (NEGATIVE); URINE LEUK ESTERASE NEGATIVE (NEGATIVE); URINE NITRITE NEGATIVE (NEGATIVE); URINE PROTEIN NEGATIVE (NEGATIVE)
[2018-06-21] MEDS ORDERED: HYDROmorphone HCl 2 MG/ML VIAL IVPUSH PRN (22:45)
[2018-06-21] MEDS ORDERED: GABAPENTIN 300 MG CAPSULE (FP) PO SCH (23:00)
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
[2018-06-21] MEDS ORDERED: PANTOPRAZOLE 40 MG TABLET (FP) PO ONE (23:30)
[2018-06-22] MEDS ORDERED: DOCUSATE SODIUM 100 MG CAPSULE (FP) PO ONE (00:38)
[2018-06-22] MEDS ORDERED: ACETAMINOPHEN INJECTION 100 ML IVPB ONE (00:39)
[2018-06-22] MEDS ORDERED: GABAPENTIN 100 MG CAPSULE (FP) ONE (00:39)
[2018-06-22] MEDS: DOCUSATE SODIUM 100 MG CAPSULE (FP) PO SCH ×3 (00:52→13:22)
[2018-06-22] MEDS: SODIUM CHLORIDE 1,000 ML IV SCH ×3 (00:52→16:16)
[2018-06-22] MEDS: ACETAMINOPHEN 1000 MG/100 ML VIAL (NON FORMULARY) IVPB SCH ×4 (00:53→16:22)
[2018-06-22] MEDS: oxyCODONE HCL 5 MG TABLET PO PRN ×3 (03:04→13:57)
[2018-06-22 03:32] VITALS: BMI 36.1
[2018-06-22] MEDS ORDERED: INSULIN (LEVEMIR) 100 UNITS/ML UNITS SQ SCH ×2 (07:00)
[2018-06-22] MEDS ORDERED: INSULIN SLIDING SCALE (NOVOLOG) 1 VIAL SQ SCH (07:00)
[2018-06-22] MEDS: INSULIN SLIDING SCALE (NOVOLOG) 1 VIAL SQ SCH ×3 (08:30→16:31)
[2018-06-22] MEDS ORDERED: predniSONE 20 MG TABLET (UD) PO SCH (10:00)
[2018-06-22] MEDS ORDERED: PANTOPRAZOLE 40 MG TABLET (FP) PO SCH (10:00)
[2018-06-22] MEDS ORDERED: LIDOCAINE 5% TOPICAL PATCH TP SCH (10:00)
[2018-06-22] MEDS ORDERED: POLYETHYLENE GLYCOL 3350 119 GM BTL PO SCH (10:00)
[2018-06-22] MEDS ORDERED: SENNOSIDES 8.6MG TABLET (FP) PO SCH (10:00)
[2018-06-22] MEDS ORDERED: ENOXAPARIN NA (PORCINE) 40 MG/0.4 ML DISP.SYRIN SQ SCH (10:00)
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
[2018-06-22] MEDS: CYCLOBENZAPRINE HCL 10 MG TABLET (FP) PO SCH ×2 (13:21→13:35)
[2018-06-22 17:17] VITALS: BP 120/63; PULSE 70; TEMP 98.9
[2018-06-22] MEDS ORDERED: MORPHINE SULFATE 2 MG/ML VIAL IVPUSH STA (19:46)
[2018-06-22] MEDS ORDERED: INSULIN (NOVOLOG) ASPART 100 UNITS/ML 10ML VIAL ONE (20:31)
[2018-06-22] MEDS ORDERED: GABAPENTIN 300 MG CAPSULE (FP) PO SCH (22:00)
[2018-06-22] MEDS ORDERED: ATORVASTATIN CA 20 MG TABLET (FP) PO SCH (22:00)
[2018-06-22] MEDS ORDERED: LIDOCAINE PATCH REMOVAL MC SCH (22:00)
--- NOTE | 2018-06-23 10:15 | EKG ---
Test Reason : Blood Pressure : / mmHG Vent. Rate : 083 BPM Atrial Rate : 083 BPM P-R Int : 154 ms QRS Dur : 086 ms QT Int : 378 ms P-R-T Axes : 068 055 030 degrees QTc Int : 444 ms NORMAL SINUS RHYTHM NORMAL ECG WHEN COMPARED WITH ECG OF 29-MAR-2018 02:25, VENT. RATE HAS DECREASED BY 46 BPM Confirmed by CINDY FUNG MD ([id number]) on 06/23/2018 10:15:09 AM Referred By: Confirmed By:CINDY FUNG MD
== END 2018-06-22 21:00 | disposition left against medical advice (07) ==
LOC: JERFT 16:38 → SUPCPDRO 16:38 → JER 16:38 → JERBED 21:12 → J8W 06-22 02:36
PROVIDERS: ADMIT Internal Medicine
PROC: 3E033NZ Introduction of Analgesics, Hypnotics, Sedatives into Peripheral Vein, Percutaneous Approach (ICD-10-PCS; principal; 2018-06-21)
PROC: 3E0233Z Introduction of Anti-inflammatory into Muscle, Percutaneous Approach (ICD-10-PCS; 2018-06-21)
PROC: 3E0337Z Introduction of Electrolytic and Water Balance Substance into Peripheral Vein, Percutaneous Approach (ICD-10-PCS; 2018-06-21)
PROC: 3E033VG Introduction of Insulin into Peripheral Vein, Percutaneous Approach (ICD-10-PCS; 2018-06-21)
PROC: 3E013VG Introduction of Insulin into Subcutaneous Tissue, Percutaneous Approach (ICD-10-PCS; 2018-06-21)
PROC: 3E033GC Introduction of Other Therapeutic Substance into Peripheral Vein, Percutaneous Approach (ICD-10-PCS; 2018-06-21)
DX: M54.42 Lumbago with sciatica, left side (principal); M54.41 Lumbago with sciatica, right side; G89.29 Other chronic pain; E11.65 Type 2 diabetes mellitus with hyperglycemia; E78.5 Hyperlipidemia, unspecified; M54.16 Radiculopathy, lumbar region; Z79.4 Long term (current) use of insulin; F17.210 Nicotine dependence, cigarettes, uncomplicated; Z79.84 Long term (current) use of oral hypoglycemic drugs
CPT/HCPCS: 36415; 72148-TC; 80053; 81003; 82962; 85025; 93005; 93010; 96372; 96374; 96375; 96376; 99283-25; G0378; J0131; J7030

== ENCOUNTER 2019-06-03 08:52 | Emergency (ER) | payer OTHER ==
[2019-06-03 09:25] VITALS: TEMP 97.4; BMI 34.5
[2019-06-03] MEDS ORDERED: morphine SULFATE 4 MG/ML VIAL ONE ×3 (09:34→12:09)
[2019-06-03 09:36] LABS: HEMATOCRIT 43.3 % (35.4-49); HEMOGLOBIN 14.8 GM/dL (11.7-16.9); MCH 30.6 pg (25.7-33.7); MCHC 34.2 g/dl (32.0-35.9); MEAN CELL VOLUME 89.4 fl (80-96); MEAN PLT VOLUME 9.8 fl (7.5-11.1); PLATELET COUNT 271 K/MM3 (134-434); RBC 4.85 M/mm3 (4.00-5.60); RDW 12.8 % (11.9-15.9); WHITE BLOOD COUNT 7.7 K/mm3 (4.0-10.0)
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
[2019-06-03 09:48] LABS: INR 0.84 (0.83-1.09); PROTHROMBIN TIME (PATIENT) 9.9 SEC (9.7-13.0)
[2019-06-03 10:11] LABS: ALBUMIN 3.8 g/dl (3.4-5.0); BILIRUBIN,TOTAL 0.7 mg/dL (0.2-1); BLOOD UREA NITROGEN 18.6 mg/dL (7-18); CALCIUM 9.5 mg/dL (8.5-10.1); CREATININE 1.2 mg/dL (0.55-1.3); POTASSIUM 4.5 mmol/L (3.5-5.1); TOT PROT 7.2 g/dl (6.4-8.2)
[2019-06-03] MEDS ORDERED: morphine CARPU-JECT 4 MG/1 ML DISP.SYRIN IVPUSH ONE ×3 (11:15→11:58)
[2019-06-03] MEDS ORDERED: SODIUM CHLORIDE 1,000 ML IV STA (11:58)
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
[2019-06-03 14:31] VITALS: BP 122/68; PULSE 68
== END 2019-06-03 14:32 | disposition home or self-care (01) ==
LOC: JER 08:52
PROC: 3E033NZ Introduction of Analgesics, Hypnotics, Sedatives into Peripheral Vein, Percutaneous Approach (ICD-10-PCS; principal; 2019-06-03)
PROC: 2W3RX1Z Immobilization of Left Lower Leg using Splint (ICD-10-PCS; 2019-06-03)
DX: S82.832A Other fracture of upper and lower end of left fibula, initial encounter for closed fracture (principal); V23.4XXA Motorcycle driver injured in collision with car, pick-up truck or van in traffic accident, initial encounter; Y93.89 Activity, other specified; Y92.410 Unspecified street and highway as the place of occurrence of the external cause; F17.210 Nicotine dependence, cigarettes, uncomplicated; E11.9 Type 2 diabetes mellitus without complications; Z79.4 Long term (current) use of insulin
CPT/HCPCS: 36415; 70450-TC; 71045-TC-FY; 72125-TC; 72131-TC; 72170-TC-FY; 73610-TC-LT-FY; 73630-TC-LT; 74177-TC; 80053; 82962; 85027; 85610; 86850; 86900; 86901; 99285-25; J7030; Q9967

== ENCOUNTER 2019-10-11 14:55 | Emergency (ER) | payer OTHER ==
[2019-10-11 15:01] VITALS: TEMP 98; BMI 39.5
[2019-10-11] MEDS ORDERED: KETOROLAC TROMETHAMINE 30 MG/1 ML VIAL IM ONE (15:04)
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
[2019-10-11] MEDS ORDERED: KETOROLAC TROMETHAMINE 30 MG/1 ML VIAL ONE (15:16)
[2019-10-11] MEDS ORDERED: DEXAMETHASONE LIQUID 0.5 MG/5 ML PO ONE (15:29)
[2019-10-11] MEDS ORDERED: diazePAM 5 MG TABLET PO ONE (15:29)
[2019-10-11] MEDS ORDERED: LIDOCAINE 5% TOPICAL PATCH TP ONE (15:29)
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
[2019-10-11] MEDS ORDERED: LIDOCAINE 5% TOPICAL PATCH ONE (15:36)
[2019-10-11] MEDS ORDERED: diazePAM 5 MG TABLET ONE (15:36)
[2019-10-11] MEDS ORDERED: DEXAMETHASONE 4 MG TABLET (FP) ONE (15:36)
[2019-10-11] MEDS ORDERED: morphine CARPU-JECT 4 MG/1 ML DISP.SYRIN IM ONE (17:02)
--- NOTE | 2019-10-11 17:12 | PDOC ---
*Physical Exam - Vital Signs Last Vital Signs Temp Pulse Resp BP Pulse Ox 98 F 95 H 18 130/87 99 10/11/19 14:58 10/11/19 14:58 10/11/19 14:58 10/11/19 14:58 10/11/19 14:58 ED Treatment Course - Medications Given in the ED: ED Medications Discontinued Medications Generic Name Dose Route Start Last Admin Trade Name [place] PRN Reason Stop Dose Admin Dexamethasone 10 mg 10/11/19 15:29 10/11/19 15:39 Decadron Liquid - PO 10/11/19 15:30 10 mg ONCE ONE Administration Diazepam 5 mg 10/11/19 15:29 10/11/19 15:39 Valium - PO 10/11/19 15:30 5 mg ONCE ONE Administration Ketorolac Tromethamine 30 mg 10/11/19 15:04 10/11/19 15:15 Toradol Injection - IM 10/11/19 15:05 30 mg ONCE ONE Administration Lidocaine 1 patch 10/11/19 15:29 10/11/19 15:39 Lidoderm Patch - TP 10/11/19 15:30 1 patch ONCE ONE Administration Medical Decision Making - Medical Decision Making 10/11/19 17:07 Patient was endorsed to me to continue care for chronic back pain. Patient is currently on pain management and has been taking Percocet for the pain. He states took percocet today without relief of symptoms. In the ED was given Toradol, valium, dexamethasone, Lidoderm patch which he states has given him no relief of symptoms. We will give morphine 4 mg IM. 10/11/19 17:[address] Stahl with no answer x 2. 10/11/19 18:13 Patient given morphine 4 mg IV now states that his pain is controlled he has minimal pain and is able to stand. Will discharge patient home with instructions to follow-up with pain management. I discussed the physical exam findings, ancillary test results and final diagnoses with the patient. I answered all of the patient's questions. The patient was satisfied with the care received and felt comfortable with the discharge plan and treatment plan. The Patient agrees to follow up with the primary care physician within 24-72 hours. Discharge - Discharge Information Problems reviewed: Yes Clinical Impression/Diagnosis: Back pain Qualifiers: Back pain location: low back pain Chronicity: acute Back pain laterality: right Sciatica presence: with sciatica Sciatica laterality: sciatica of right side Qualified Code(s): M54.41 - Lumbago with sciatica, right side Chronic back pain Qualifiers: Back pain location: low back pain Back pain laterality: unspecified Sciatica presence: without sciatica Qualified Code(s): M54.5 - Low back pain; G89.29 - Other chronic pain Disposition: HOME - Follow up/Referral - Patient Discharge Instructions Patient Printed Discharge Instructions: DI for Low Back Pain Additional Instructions: Your Discharge Instructions: You must call primary care physician within 24 hours to arrange follow-up. Return to the Emergency Department with any new, persistent or worsening symptoms, for fever, chills, SOB, dizziness or any other concerning changes that may occur. You must follow-up with your pain management doctor for further treatment. - Post Discharge Activity
[2019-10-11] MEDS ORDERED: morphine SULFATE 4 MG/ML VIAL ONE (17:13)
[2019-10-11] MEDS ORDERED: CYCLOBENZAPRINE HCL 10 MG TABLET (FP) PO ONE (17:14)
[2019-10-11] MEDS ORDERED: CYCLOBENZAPRINE HCL 10 MG TABLET (FP) ONE (18:15)
[2019-10-11 19:00] VITALS: BP 137/82; PULSE 82
== END 2019-10-11 18:40 | disposition home or self-care (01) ==
LOC: JERFT 14:55
PROC: 3E023GC Introduction of Other Therapeutic Substance into Muscle, Percutaneous Approach (ICD-10-PCS; principal; 2019-10-11)
DX: M54.41 Lumbago with sciatica, right side (principal)
CPT/HCPCS: 99284-25

== ENCOUNTER 2020-09-29 12:05 | Emergency (ER) | payer OTHER ==
[2020-09-29 12:29] VITALS: BP 127/82; PULSE 84; TEMP 98; BMI 36.3
== END 2020-09-29 14:26 | disposition home or self-care (01) ==
LOC: JERFT 12:05
DX: Z76.0 Encounter for issue of repeat prescription (principal)
CPT/HCPCS: 99282-25

== ENCOUNTER 2020-10-17 17:24 | Inpatient (IN) | payer OTHER ==
[2020-10-17] MEDS ORDERED: LACTATED RINGERS SOLUTION 1,000 ML/1,000 ML INFUS.BAG IV STA ×3 (17:50→19:59)
[2020-10-17] MEDS ORDERED: ONDANSETRON 4 MG/2 ML VIAL IVPUSH ONE (18:14)
[2020-10-17] MEDS ORDERED: LORazepam 2 MG/ML SDV VIAL IVPUSH ONE ×3 (18:15→23:48)
[2020-10-17] MEDS ORDERED: ONDANSETRON 4 MG/2 ML VIAL ONE (18:17)
[2020-10-17] MEDS ORDERED: LORazepam 2 MG/ML SDV VIAL ONE (18:17)
[2020-10-17 19:05] LABS: VENOUS BASE EXCESS -26.6 mmol/L (-2-2); VENOUS PCO2 24.4 mmHg (38-52)
[2020-10-17 19:15] LABS: INR 0.97 (0.83-1.09); PROTHROMBIN TIME (PATIENT) 11.9 SEC (9.7-13.0)
[2020-10-17 19:18] LABS: ACTIVATED PTT 42.4 SECONDS (25.2-36.5)
[2020-10-17 19:30] LABS: CHLORIDE 93 mmol/L (98-107); SODIUM 131 mmol/L (136-145); VENOUS PH 6.93 (7.310-7.410)
[2020-10-17 19:32] LABS: CALCIUM 9.4 mg/dL (8.5-10.1)
[2020-10-17 19:33] LABS: ALBUMIN 4.2 g/dl (3.4-5.0); BLOOD UREA NITROGEN 26.6 mg/dL (7-18); CO2 4 mmol/L (21-32); MAGNESIUM 2.4 mg/dL (1.8-2.4)
[2020-10-17 19:36] LABS: CREATININE 2.2 mg/dL (0.55-1.3); SGOT/AST 10 U/L (15-37); SGPT/ALT 18 U/L (13-61)
[2020-10-17 19:37] LABS: BILIRUBIN,TOTAL 0.5 mg/dL (0.2-1)
[2020-10-17 19:38] LABS: ALK PHOS 180 U/L (45-117)
[2020-10-17 19:55] LABS: ANION GAP 35 MMOL/L (8-16); GLUCOSE,RANDOM 858 mg/dL (74-106); PHOSPHOROUS 8.4 mg/dL (2.5-4.9)
[2020-10-17] MEDS ORDERED: INSULIN REGULAR HUMAN 100 UNITS/ML *VIAL IVPUSH ONE (20:01)
[2020-10-17] MEDS ORDERED: INSULIN REGULAR HUMAN 100 UNITS/ML *VIAL* (FOR IVP) IVPUSH ONE (20:02)
[2020-10-17] MEDS ORDERED: CALCIUM GLUCONATE 10% - 1,000 MG/10 ML VIAL IVPUSH ONE (20:06)
[2020-10-17] MEDS ORDERED: INSULIN REGULAR HUMAN 100 UNITS/ML *VIAL ONE (20:06)
[2020-10-17] MEDS ORDERED: INSULIN REGULAR 100 UNITS in SODIUM CHLORIDE 99 ML IVPB SCH (20:15)
[2020-10-17] MEDS ORDERED: CALCIUM GLUCONATE 10% - 1,000 MG/10 ML VIAL ONE (20:27)
[2020-10-17] MEDS ORDERED: SODIUM CHLORIDE 0.45% 1,000 ML IV SCH ×2 (21:15→23:45)
[2020-10-17] MEDS ORDERED: SODIUM BICARBONATE 8.4% 50 MEQ/50 ML VIAL IVPUSH ONE (21:23)
[2020-10-17 21:37] LABS: BASO % 0.5 % (0-2.0); EOS % 0.2 % (0-4.5); HEMATOCRIT 49.3 % (35.4-49); HEMOGLOBIN 14.8 GM/dL (11.7-16.9); LYMPH % 11.5 % (8-40); MCH 28.8 pg (25.7-33.7); MEAN CELL VOLUME 95.9 fl (80-96); MEAN PLT VOLUME 12.6 fl (7.5-11.1); MONO % 3.4 % (3.8-10.2); NEUT % 84.4 % (42.8-82.8); PLATELET COUNT 283 10^3/uL (134-434); RBC 5.14 M/mm3 (4.00-5.60); RDW 15.9 % (11.9-15.9); WHITE BLOOD COUNT 21.4 K/mm3 (4.0-10.0)
[2020-10-17] MEDS ORDERED: SODIUM CHLORIDE 0.45% 1,000 ML with SODIUM BICARBONATE 8.4% - 150 MEQ IV SCH (21:37)
[2020-10-17 21:50] LABS: EPI CELLS 2 /uL (0-25.1); HYALINE CASTS 1 /uL (0-3.1); URINE APPEARANCE CLEAR; URINE BACTERIA 283 /uL (0-1359); URINE BILIRUBIN NEGATIVE (NEGATIVE); URINE COLOR YELLOW; URINE GLUCOSE (UA) 3+ (NEGATIVE); URINE KETONE 4+ (NEGATIVE); URINE LEUK ESTERASE NEGATIVE (NEGATIVE); URINE NITRITE NEGATIVE (NEGATIVE); URINE PROTEIN 1+ (NEGATIVE); URINE RBC 3 /uL (0-23.9); URINE WBC 2 /uL (0-25.8)
[2020-10-17] MEDS ORDERED: SODIUM BICARBONATE 8.4% - 50 ML ONE (21:52)
[2020-10-17] MEDS ORDERED: ENOXAPARIN NA (PORCINE) 40 MG/0.4 ML DISP.SYRIN SQ ONE (21:52)
[2020-10-17] MEDS: ENOXAPARIN NA (PORCINE) 40 MG/0.4 ML DISP.SYRIN SQ SCH (22:03)
[2020-10-17] MEDS ORDERED: VANCOMYCIN 1,000 MG in DEXTROSE 5%-WATER - 250 ML IVPB ONE (22:30)
[2020-10-17 22:35] LABS: ARTERIAL BLD GAS O2 SATURATION 95.2 % (95-98); ARTERIAL BLOOD GAS BASE EXCESS -27.3 mmol/L (-2-2); ARTERIAL BLOOD GAS PO2 116.7 mmHg (80-100)
[2020-10-17 22:38] LABS: ALLENS TEST POSITIVE
[2020-10-17 22:40] LABS: ARTERIAL BLOOD GAS pH 6.935 (7.350-7.450)
[2020-10-17] MEDS ORDERED: PIPERACILLIN/TAZOB 3.375 GM 3.375 GM in DEXTROSE 5%-WATER - 50 ML IVPB ONE (22:45)
[2020-10-17 22:46] LABS: URINE BARBITURATES NEGATIVE (NEGATIVE)
[2020-10-17 22:47] LABS: COCAINE, UR NEGATIVE (NEGATIVE); OPIATES, URI NEGATIVE (NEGATIVE); PHENCYCLIDINE,URINE NEGATIVE (NEGATIVE); URINE AMPHETAMINES NEGATIVE (NEGATIVE); URINE BENZODIAZEPINES NEGATIVE (NEGATIVE)
[2020-10-17 22:51] LABS: METHADONE, UR NEGATIVE (NEGATIVE)
[2020-10-17 22:56] LABS: CHLORIDE 98 mmol/L (98-107); SODIUM 136 mmol/L (136-145)
[2020-10-17 22:58] LABS: ANION GAP 32 MMOL/L (8-16); CALCIUM 8.9 mg/dL (8.5-10.1); CO2 7 mmol/L (21-32)
[2020-10-17 23:02] LABS: CREATININE 2.2 mg/dL (0.55-1.3)
[2020-10-17 23:11] LABS: GLUCOSE,RANDOM 727 mg/dL (74-106); LACTIC ACID 2.6 mmol/L (0.4-2.0)
[2020-10-17] MEDS: MUPIROCIN 2% TOPICAL OINTMENT FOR DECOLONIZATION NS SCH (23:46)
[2020-10-17] MEDS: CHLORHEXIDINE GLUCONATE 4% CLEANSER FOR DECOLONIZATION TP SCH (23:46)
[2020-10-17 23:56] LABS: ANISOCYTOSIS 0; MACROCYTOSIS 0; PLATELET ESTIMATE NORMAL
[2020-10-17 23:59] VITALS: BMI 39.4
[2020-10-18] MEDS ORDERED: LORazepam 2 MG/ML SDV VIAL ONE ×2 (01:02→20:16)
[2020-10-18 02:01] LABS: CHLORIDE 101 mmol/L (98-107); SODIUM 139 mmol/L (136-145)
[2020-10-18 02:03] LABS: CALCIUM 8.7 mg/dL (8.5-10.1)
[2020-10-18 02:04] LABS: ANION GAP 32 MMOL/L (8-16); BLOOD UREA NITROGEN 30.9 mg/dL (7-18); CO2 5 mmol/L (21-32)
[2020-10-18 02:08] LABS: CREATININE 2.5 mg/dL (0.55-1.3)
[2020-10-18 02:23] LABS: GLUCOSE,RANDOM 540 mg/dL (74-106)
[2020-10-18] MEDS ORDERED: DIVALPROEX SODIUM 250 MG TABLET E.C. PO SCH (06:00)
[2020-10-18] MEDS ORDERED: PT OWN MED DRAWER 7, Y5N ONE ×3 (06:47→18:23)
[2020-10-18 07:15] LABS: BASO % 0.9 % (0-2.0); HEMOGLOBIN 12.3 GM/dL (11.7-16.9); LYMPH % 13.2 % (8-40); MCH 28.1 pg (25.7-33.7); MCHC 32.3 g/dl (32.0-35.9); MEAN CELL VOLUME 86.9 fl (80-96); MEAN PLT VOLUME 10.5 fl (7.5-11.1); MONO % 8.3 % (3.8-10.2); NEUT % 77.6 % (42.8-82.8); PLATELET COUNT 253 10^3/uL (134-434); RBC 4.37 M/mm3 (4.00-5.60); RDW 14.6 % (11.9-15.9); WHITE BLOOD COUNT 23.4 K/mm3 (4.0-10.0)
[2020-10-18 07:46] LABS: ALBUMIN 3.4 g/dl (3.4-5.0); CALCIUM 8.1 mg/dL (8.5-10.1)
[2020-10-18 07:47] LABS: BILIRUBIN,TOTAL 0.6 mg/dL (0.2-1); BLOOD UREA NITROGEN 31.7 mg/dL (7-18); MAGNESIUM 2.4 mg/dL (1.8-2.4); TOT PROT 6.6 g/dl (6.4-8.2)
[2020-10-18 07:49] LABS: CREATININE 2.4 mg/dL (0.55-1.3); PHOSPHOROUS 5.4 mg/dL (2.5-4.9)
[2020-10-18 08:45] LABS: BASO % 0.7 % (0-2.0); HEMATOCRIT 38.8 % (35.4-49); HEMOGLOBIN 12.5 GM/dL (11.7-16.9); LYMPH % 11.4 % (8-40); MCH 27.8 pg (25.7-33.7); MCHC 32.3 g/dl (32.0-35.9); MEAN CELL VOLUME 86.3 fl (80-96); MEAN PLT VOLUME 10.5 fl (7.5-11.1); MONO % 7.7 % (3.8-10.2); NEUT % 80.2 % (42.8-82.8); PLATELET COUNT 253 10^3/uL (134-434); RBC 4.49 M/mm3 (4.00-5.60); RDW 14.8 % (11.9-15.9); WHITE BLOOD COUNT 20.4 K/mm3 (4.0-10.0)
[2020-10-18 09:07] LABS: CALCIUM 8.2 mg/dL (8.5-10.1)
[2020-10-18 09:08] LABS: BLOOD UREA NITROGEN 29.8 mg/dL (7-18)
[2020-10-18 09:11] LABS: CREATININE 2.3 mg/dL (0.55-1.3)
[2020-10-18] MEDS ORDERED: DEXTROSE 5%-WATER 100 ML IVPB ONE (09:38)
[2020-10-18] MEDS ORDERED: DOXYCYCLINE HYCLATE 100 MG VIAL ONE (09:38)
[2020-10-18] MEDS ORDERED: DEXTROSE 5%-WATER - 50 ML IVPB ONE ×3 (09:39→20:58)
[2020-10-18] MEDS ORDERED: cefTRIAXone SODIUM 1 GM VIAL ONE (09:39)
[2020-10-18] MEDS: ENOXAPARIN NA (PORCINE) 40 MG/0.4 ML DISP.SYRIN SQ SCH (09:51)
[2020-10-18] MEDS: VALPROATE SODIUM INJECTION 250 MG in SODIUM CHLORIDE 50 ML IVPB SCH ×2 (09:53→18:27)
[2020-10-18] MEDS: MUPIROCIN 2% TOPICAL OINTMENT FOR DECOLONIZATION NS SCH ×2 (09:53→21:48)
[2020-10-18] MEDS ORDERED: DOXYCYCLINE INJECTION 100 MG in DEXTROSE 5%-WATER 100 ML IVPB SCH (10:00)
[2020-10-18] MEDS ORDERED: CEFTRIAXONE 1 GM in DEXTROSE 5%-WATER - 50 ML IVPB SCH (10:00)
[2020-10-18] MEDS ORDERED: VALPROATE SODIUM 500 MG/5 ML VIAL IVPB SCH (10:00)
[2020-10-18] MEDS ORDERED: DEXTROSE 5%-NORMAL SALINE 1,000 ML IV SCH (11:30)
[2020-10-18] MEDS ORDERED: D5-NS + 20 MEQ KCL - 20 MEQ/1,000 ML INFUS.BAG IV SCH (11:30)
[2020-10-18 11:39] LABS: CALCIUM 8.4 mg/dL (8.5-10.1)
[2020-10-18 11:40] LABS: BLOOD UREA NITROGEN 26.4 mg/dL (7-18)
[2020-10-18 11:41] LABS: ANISOCYTOSIS 0; MACROCYTOSIS 0; PLATELET ESTIMATE NORMAL
[2020-10-18 11:43] LABS: CREATININE 2.3 mg/dL (0.55-1.3)
[2020-10-18 15:47] LABS: ALBUMIN 3.4 g/dl (3.4-5.0); BLOOD UREA NITROGEN 21.9 mg/dL (7-18); CALCIUM 8.2 mg/dL (8.5-10.1)
[2020-10-18 15:50] LABS: CREATININE 1.9 mg/dL (0.55-1.3)
[2020-10-18 15:51] LABS: BILIRUBIN,TOTAL 0.4 mg/dL (0.2-1)
[2020-10-18 15:52] LABS: TOT PROT 6.5 g/dl (6.4-8.2)
[2020-10-18] MEDS ORDERED: PIPERACILLIN/TAZOBACTAM 2.25 GM VIAL IVPB ONE ×2 (16:00→20:58)
[2020-10-18] MEDS: HEPARIN NA (PORCINE) 5,000 UNITS/ML 1ML VIAL SQ SCH ×2 (16:03→21:49)
[2020-10-18] MEDS: PIPERACILLIN/TAZOB 2.25 GM 2.25 GM in DEXTROSE 5%-WATER - 50 ML IVPB SCH ×2 (16:03→21:40)
[2020-10-18] MEDS ORDERED: INSULIN (LEVEMIR) 100 UNITS/ML UNITS SQ ONE (17:14)
[2020-10-18] MEDS ORDERED: INSULIN SLIDING SCALE (NOVOLOG) 1 VIAL SQ SCH (20:15)
[2020-10-18] MEDS ORDERED: LORazepam 2 MG/ML SDV VIAL IVPUSH ONE (20:15)
[2020-10-18] MEDS ORDERED: DEXMEDETOMIDINE IN 0.9 % NACL 400 MCG/100 ML VIAL IVPB SCH (20:30)
[2020-10-18] MEDS ORDERED: ACETAMINOPHEN INJECTION 100 ML IVPB ONE (20:43)
[2020-10-18] MEDS ORDERED: ACETAMINOPHEN 1000 MG/100 ML VIAL (NON FORMULARY) IVPB PRN (20:46)
[2020-10-18 21:05] LABS: CALCIUM 8.7 mg/dL (8.5-10.1)
[2020-10-18 21:06] LABS: BLOOD UREA NITROGEN 16.6 mg/dL (7-18)
[2020-10-18 21:09] LABS: CREATININE 1.8 mg/dL (0.55-1.3)
[2020-10-18] MEDS ORDERED: SODIUM CHLORIDE 0.45%/POT 20 MEQ/1,000 ML INFUS.BAG IV SCH (21:15)
[2020-10-18] MEDS ORDERED: INSULIN REGULAR 100 UNITS in SODIUM CHLORIDE 99 ML IVPB SCH (21:15)
[2020-10-18] MEDS ORDERED: INSULIN REGULAR HUMAN 100 UNITS/ML *VIAL* (FOR IVP) IVPUSH ONE (21:15)
[2020-10-18] MEDS ORDERED: DEXTROSE 50%-WATER - 25 GM/50 ML VIAL IVPUSH PRN (21:15)
[2020-10-18] MEDS: CHLORHEXIDINE GLUCONATE 4% CLEANSER FOR DECOLONIZATION TP SCH (21:49)
[2020-10-18] MEDS ORDERED: VANCOMYCIN 1 GM in D5W (PRE-DOCKED) 1,000 MG/250 ML IVPB ONE (21:59)
[2020-10-18 23:41] LABS: CHLORIDE 112 mmol/L (98-107); SODIUM 144 mmol/L (136-145)
[2020-10-18 23:43] LABS: ANION GAP 20 MMOL/L (8-16); BLOOD UREA NITROGEN 15.6 mg/dL (7-18); CALCIUM 8.5 mg/dL (8.5-10.1); CO2 12 mmol/L (21-32)
[2020-10-18 23:47] LABS: CREATININE 1.8 mg/dL (0.55-1.3)
[2020-10-18 23:54] LABS: GLUCOSE,RANDOM 439 mg/dL (74-106)
[2020-10-19] MEDS: VALPROATE SODIUM INJECTION 250 MG in SODIUM CHLORIDE 50 ML IVPB SCH ×2 (01:25→14:10)
[2020-10-19 02:02] LABS: CALCIUM 8.9 mg/dL (8.5-10.1)
[2020-10-19 02:03] LABS: BLOOD UREA NITROGEN 13.9 mg/dL (7-18)
[2020-10-19 02:06] LABS: CREATININE 1.8 mg/dL (0.55-1.3)
[2020-10-19] MEDS ORDERED: DEXTROSE 5%-WATER - 50 ML IVPB ONE ×4 (02:52→21:43)
[2020-10-19] MEDS ORDERED: PIPERACILLIN/TAZOBACTAM 2.25 GM VIAL IVPB ONE ×4 (02:52→21:43)
[2020-10-19] MEDS: PIPERACILLIN/TAZOB 2.25 GM 2.25 GM in DEXTROSE 5%-WATER - 50 ML IVPB SCH ×4 (02:54→21:45)
[2020-10-19 04:23] LABS: CALCIUM 8.9 mg/dL (8.5-10.1)
[2020-10-19 04:24] LABS: BLOOD UREA NITROGEN 12.6 mg/dL (7-18)
[2020-10-19 04:27] LABS: CREATININE 1.7 mg/dL (0.55-1.3)
[2020-10-19] MEDS: HEPARIN NA (PORCINE) 5,000 UNITS/ML 1ML VIAL SQ SCH ×3 (05:33→21:45)
[2020-10-19] MEDS ORDERED: DEXTROSE 5%-0.45% SALINE 1,000 ML IV SCH (06:00)
[2020-10-19] MEDS ORDERED: DEXTROSE 5%-WATER - 1,000 ML IV SCH (06:00)
[2020-10-19 06:20] LABS: BASO % 1.4 % (0-2.0); HEMATOCRIT 38.1 % (35.4-49); HEMOGLOBIN 12.6 GM/dL (11.7-16.9); LYMPH % 13.9 % (8-40); MCH 28.3 pg (25.7-33.7); MEAN CELL VOLUME 85.8 fl (80-96); MEAN PLT VOLUME 10.2 fl (7.5-11.1); MONO % 12.3 % (3.8-10.2); NEUT % 72.4 % (42.8-82.8); PLATELET COUNT 201 10^3/uL (134-434); RBC 4.45 M/mm3 (4.00-5.60); WHITE BLOOD COUNT 12.4 K/mm3 (4.0-10.0)
[2020-10-19] MEDS: INSULIN (LEVEMIR) 100 UNITS/ML UNITS SQ SCH ×2 (06:36→21:52)
[2020-10-19 06:50] LABS: ALBUMIN 3.2 g/dl (3.4-5.0); BLOOD UREA NITROGEN 11.3 mg/dL (7-18)
[2020-10-19 06:53] LABS: CREATININE 1.5 mg/dL (0.55-1.3)
[2020-10-19 06:54] LABS: PHOSPHOROUS 1.9 mg/dL (2.5-4.9)
[2020-10-19 06:55] LABS: BILIRUBIN,TOTAL 0.2 mg/dL (0.2-1); TOT PROT 6.3 g/dl (6.4-8.2)
[2020-10-19] MEDS ORDERED: POTASSIUM PHOSPHATE 30 MM in DEXTROSE 5%-WATER - 250 ML IVPB ONE (09:00)
[2020-10-19] MEDS ORDERED: INSULIN (LEVEMIR) 100 UNITS/ML UNITS SQ SCH (10:00)
[2020-10-19] MEDS: MUPIROCIN 2% TOPICAL OINTMENT FOR DECOLONIZATION NS SCH ×2 (10:17→21:45)
[2020-10-19] MEDS: INSULIN SLIDING SCALE (NOVOLOG) 1 VIAL SQ SCH ×5 (10:18→22:00)
[2020-10-19] MEDS ORDERED: PT OWN MED DRAWER 7, Y5N ONE ×2 (11:15→16:14)
[2020-10-19] MEDS: QUEtiapine FUMARATE 50 MG TABLET PO ONE ×2 (11:18→11:20)
[2020-10-19] MEDS ORDERED: DEXMEDETOMIDINE IN 0.9 % NACL 200 MCG/50 ML EACH IVPB SCH (14:00)
[2020-10-19] MEDS ORDERED: DEXMEDETOMIDINE IN 0.9 % NACL 400 MCG/100 ML VIAL IVPB SCH (14:15)
[2020-10-19] MEDS: GABAPENTIN 400 MG CAPSULE PO SCH ×2 (15:00→21:45)
[2020-10-19] MEDS ORDERED: HALOPERIDOL LACTATE 5 MG/ML IM PRN (15:21)
[2020-10-19 16:10] LABS: BLOOD UREA NITROGEN 8.6 mg/dL (7-18); CALCIUM 8.9 mg/dL (8.5-10.1)
[2020-10-19 16:14] LABS: CREATININE 1.5 mg/dL (0.55-1.3)
[2020-10-19] MEDS ORDERED: VALPROATE SODIUM 500 MG/5 ML VIAL IVPB ONE (16:47)
[2020-10-19] MEDS ORDERED: VALPROATE SODIUM INJECTION 1,000 MG in SODIUM CHLORIDE 100 ML IVPB ONE (18:00)
[2020-10-19] MEDS ORDERED: LORazepam 2 MG/ML SDV VIAL IVPUSH ONE (21:21)
[2020-10-19] MEDS: SODIUM CHLORIDE 0.45% 1,000 ML IV SCH (21:24)
[2020-10-19] MEDS ORDERED: ATORVASTATIN CA 40 MG TABLET (FP) PO SCH (22:00)
[2020-10-19] MEDS ORDERED: HALOPERIDOL LACTATE 5 MG/ML IM ONE (23:30)
[2020-10-19] MEDS ORDERED: HALOPERIDOL LACTATE 5 MG/ML ONE (23:34)
[2020-10-20] MEDS ORDERED: LORazepam 2 MG/ML SDV VIAL ONE ×2 (00:59→12:09)
[2020-10-20] MEDS ORDERED: LORazepam 2 MG/ML SDV VIAL IVPUSH ONE ×5 (01:03→15:35)
[2020-10-20] MEDS: INSULIN SLIDING SCALE (NOVOLOG) 1 VIAL SQ SCH ×6 (01:33→22:07)
[2020-10-20] MEDS ORDERED: PIPERACILLIN/TAZOBACTAM 2.25 GM VIAL IVPB ONE ×3 (03:30→22:02)
[2020-10-20] MEDS ORDERED: DEXTROSE 5%-WATER - 50 ML IVPB ONE ×3 (03:31→22:02)
[2020-10-20] MEDS: PIPERACILLIN/TAZOB 2.25 GM 2.25 GM in DEXTROSE 5%-WATER - 50 ML IVPB SCH ×4 (03:58→22:04)
[2020-10-20] MEDS: GABAPENTIN 400 MG CAPSULE PO SCH ×3 (05:32→22:08)
[2020-10-20] MEDS: HEPARIN NA (PORCINE) 5,000 UNITS/ML 1ML VIAL SQ SCH ×3 (05:32→22:04)
[2020-10-20 06:31] LABS: BASO % 0.9 % (0-2.0); EOS % 0.4 % (0-4.5); HEMATOCRIT 39.2 % (35.4-49); HEMOGLOBIN 13.1 GM/dL (11.7-16.9); LYMPH % 25.1 % (8-40); MCH 28.7 pg (25.7-33.7); MCHC 33.5 g/dl (32.0-35.9); MEAN CELL VOLUME 85.7 fl (80-96); MEAN PLT VOLUME 10.5 fl (7.5-11.1); MONO % 9.9 % (3.8-10.2); NEUT % 63.7 % (42.8-82.8); PLATELET COUNT 205 10^3/uL (134-434); RBC 4.57 M/mm3 (4.00-5.60); RDW 14.9 % (11.9-15.9); WHITE BLOOD COUNT 10.9 K/mm3 (4.0-10.0)
[2020-10-20 06:48] LABS: ALBUMIN 3.1 g/dl (3.4-5.0); BLOOD UREA NITROGEN 4.8 mg/dL (7-18); CALCIUM 9.1 mg/dL (8.5-10.1); MAGNESIUM 1.9 mg/dL (1.8-2.4)
[2020-10-20] MEDS: INSULIN (LEVEMIR) 100 UNITS/ML UNITS SQ SCH ×2 (06:49→22:06)
[2020-10-20 06:51] LABS: CREATININE 1.3 mg/dL (0.55-1.3)
[2020-10-20 06:52] LABS: PHOSPHOROUS 2.2 mg/dL (2.5-4.9)
[2020-10-20 06:53] LABS: BILIRUBIN,TOTAL 0.4 mg/dL (0.2-1); TOT PROT 6.4 g/dl (6.4-8.2)
[2020-10-20] MEDS ORDERED: POTASSIUM PHOSPHATE 30 MM in SODIUM CHLORIDE 250 ML IVPB ONE (07:45)
[2020-10-20] MEDS: KCL 10 MEQ IVPB 10 MEQ/100 ML INFUS.BAG IVPB SCH ×3 (08:16→09:45)
[2020-10-20] MEDS: MUPIROCIN 2% TOPICAL OINTMENT FOR DECOLONIZATION NS SCH (09:45)
[2020-10-20] MEDS ORDERED: VALPROATE SODIUM 500 MG/5 ML VIAL ONE ×2 (09:48→22:01)
[2020-10-20] MEDS ORDERED: HALOPERIDOL LACTATE 5 MG/ML IM PRN ×2 (09:48→19:52)
[2020-10-20] MEDS ORDERED: SODIUM CHLORIDE 100 ML IVPB ONE ×2 (09:49→22:01)
[2020-10-20] MEDS ORDERED: VALPROATE SODIUM INJECTION 1,000 MG in SODIUM CHLORIDE 100 ML IVPB SCH (10:00)
[2020-10-20] MEDS ORDERED: FOLIC ACID 1 MG TABLET (FP) PO SCH (10:00)
[2020-10-20] MEDS: SODIUM CHLORIDE 0.45% 1,000 ML IV SCH ×2 (10:08→22:05)
[2020-10-20] MEDS ORDERED: HALOPERIDOL LACTATE 5 MG/ML IM ONE ×2 (12:07→18:26)
[2020-10-20] MEDS ORDERED: LACTOBACILLUS ACIDOPHILUS 1 TABLET GT SCH (12:15)
[2020-10-20] MEDS ORDERED: PIPERACILLIN/TAZOB 2.25 GM 2.25 GM in DEXTROSE 5%-WATER - 50 ML IVPB SCH (21:00)
[2020-10-20] MEDS ORDERED: morphine SULFATE 4 MG/ML VIAL IVPUSH ONE (21:44)
[2020-10-20] MEDS ORDERED: GABAPENTIN 400 MG CAPSULE PO SCH (22:00)
[2020-10-20] MEDS ORDERED: MUPIROCIN 2% TOPICAL OINTMENT FOR DECOLONIZATION NS SCH (22:00)
[2020-10-20] MEDS ORDERED: INSULIN (LEVEMIR) 100 UNITS/ML UNITS SQ SCH (22:00)
[2020-10-20] MEDS ORDERED: ATORVASTATIN CA 40 MG TABLET (FP) PO SCH (22:00)
[2020-10-20] MEDS ORDERED: HEPARIN NA (PORCINE) 5,000 UNITS/ML 1ML VIAL SQ SCH (22:00)
[2020-10-20] MEDS: VALPROATE SODIUM INJECTION 1,000 MG in SODIUM CHLORIDE 100 ML IVPB SCH (22:04)
[2020-10-20] MEDS: ATORVASTATIN CA 40 MG TABLET (FP) PO SCH (22:08)
[2020-10-21] MEDS ORDERED: PIPERACILLIN/TAZOBACTAM 2.25 GM VIAL IVPB ONE ×2 (00:58→13:31)
[2020-10-21] MEDS ORDERED: DEXTROSE 5%-WATER - 50 ML IVPB ONE ×2 (00:58→13:31)
[2020-10-21] MEDS: INSULIN SLIDING SCALE (NOVOLOG) 1 VIAL SQ SCH ×5 (03:04→18:55)
[2020-10-21] MEDS: PIPERACILLIN/TAZOB 2.25 GM 2.25 GM in DEXTROSE 5%-WATER - 50 ML IVPB SCH ×4 (03:30→22:20)
[2020-10-21] MEDS: GABAPENTIN 400 MG CAPSULE PO SCH ×3 (05:14→22:22)
[2020-10-21] MEDS: HEPARIN NA (PORCINE) 5,000 UNITS/ML 1ML VIAL SQ SCH ×2 (05:15→13:45)
[2020-10-21] MEDS ORDERED: MORPHINE SULFATE 2 MG/ML VIAL ONE (06:11)
[2020-10-21] MEDS ORDERED: MORPHINE SULFATE 2 MG/ML VIAL IVPUSH ONE (06:15)
[2020-10-21] MEDS: INSULIN (LEVEMIR) 100 UNITS/ML UNITS SQ SCH (06:43)
[2020-10-21] MEDS ORDERED: FOLIC ACID 1 MG TABLET (FP) PO SCH (10:00)
[2020-10-21] MEDS ORDERED: HALOPERIDOL LACTATE 5 MG/ML IM ONE ×3 (11:51→22:16)
[2020-10-21] MEDS ORDERED: LORazepam 2 MG/ML SDV VIAL IVPUSH ONE (11:52)
[2020-10-21] MEDS ORDERED: HALOPERIDOL LACTATE 5 MG/ML ONE ×2 (11:57→22:10)
[2020-10-21] MEDS ORDERED: VALPROATE SODIUM 500 MG/5 ML VIAL ONE (13:30)
[2020-10-21] MEDS ORDERED: SODIUM CHLORIDE 100 ML IVPB ONE (13:30)
[2020-10-21] MEDS: VALPROATE SODIUM INJECTION 1,000 MG in SODIUM CHLORIDE 100 ML IVPB SCH (13:43)
[2020-10-21] MEDS: FOLIC ACID 1 MG TABLET (FP) PO SCH (13:44)
[2020-10-21] MEDS ORDERED: LORazepam 2 MG/ML SDV VIAL ONE ×2 (22:10→23:06)
[2020-10-21] MEDS ORDERED: LORazepam 2 MG/ML SDV VIAL IM ONE ×2 (22:16→23:02)
[2020-10-21] MEDS: SODIUM CHLORIDE 0.45% 1,000 ML IV SCH (22:19)
[2020-10-21] MEDS: ATORVASTATIN CA 40 MG TABLET (FP) PO SCH (22:36)
[2020-10-22] MEDS ORDERED: QUEtiapine FUMARATE 50 MG TABLET PO ONE (00:23)
[2020-10-22] MEDS ORDERED: diazePAM CARPU-JECT 10 MG/2 ML DISP.SYRIN IM PRN (00:24)
[2020-10-22] MEDS: VALPROATE SODIUM INJECTION 1,000 MG in SODIUM CHLORIDE 100 ML IVPB SCH (00:41)
[2020-10-22] MEDS: HEPARIN NA (PORCINE) 5,000 UNITS/ML 1ML VIAL SQ SCH ×5 (00:42→22:31)
[2020-10-22] MEDS: INSULIN (LEVEMIR) 100 UNITS/ML UNITS SQ SCH ×3 (02:22→22:31)
[2020-10-22] MEDS: INSULIN SLIDING SCALE (NOVOLOG) 1 VIAL SQ SCH ×8 (02:23→22:30)
[2020-10-22] MEDS ORDERED: DIVALPROEX SODIUM 500 MG TABLET E.C. PO SCH (04:55)
[2020-10-22] MEDS: VALPROATE SODIUM 250 MG/5 ML UNIT DOSE CUP PO SCH ×2 (05:25→22:31)
[2020-10-22] MEDS: PIPERACILLIN/TAZOB 2.25 GM 2.25 GM in DEXTROSE 5%-WATER - 50 ML IVPB SCH ×2 (05:37→12:00)
[2020-10-22] MEDS: GABAPENTIN 400 MG CAPSULE PO SCH ×3 (06:49→22:32)
[2020-10-22] MEDS ORDERED: DEXTROSE 5%-WATER - 50 ML IVPB ONE (08:02)
[2020-10-22] MEDS ORDERED: PIPERACILLIN/TAZOBACTAM 2.25 GM VIAL IVPB ONE (08:02)
[2020-10-22] MEDS: LORazepam 1 MG TABLET PO PRN ×2 (08:03→12:48)
[2020-10-22] MEDS: AMOX TR/POT CLAV 875MG/125MG TABLETS (FP) PO SCH ×2 (12:23→18:19)
[2020-10-22] MEDS: FOLIC ACID 1 MG TABLET (FP) PO SCH (12:23)
[2020-10-22 13:34] LABS: BASO % 1.1 % (0-2.0); EOS % 3.3 % (0-4.5); HEMATOCRIT 37.8 % (35.4-49); LYMPH % 35.6 % (8-40); MCHC 34.4 g/dl (32.0-35.9); MEAN CELL VOLUME 84.3 fl (80-96); MEAN PLT VOLUME 10.7 fl (7.5-11.1); MONO % 9.1 % (3.8-10.2); NEUT % 50.9 % (42.8-82.8); PLATELET COUNT 178 10^3/uL (134-434); RBC 4.48 M/mm3 (4.00-5.60); RDW 14.8 % (11.9-15.9); WHITE BLOOD COUNT 4.7 K/mm3 (4.0-10.0)
[2020-10-22 13:43] LABS: CALCIUM 8.6 mg/dL (8.5-10.1)
[2020-10-22 13:46] LABS: CREATININE 0.8 mg/dL (0.55-1.3)
[2020-10-22 13:47] LABS: PHOSPHOROUS 2.3 mg/dL (2.5-4.9)
[2020-10-22 13:48] LABS: BILIRUBIN,TOTAL 0.4 mg/dL (0.2-1); TOT PROT 6.3 g/dl (6.4-8.2)
[2020-10-22] MEDS ORDERED: POTASSIUM CHLORIDE TABS 20 MEQ TABLET.ER (FP) PO ONE (17:34)
[2020-10-22] MEDS: SODIUM CHLORIDE 0.45% 1,000 ML IV SCH (20:37)
[2020-10-22] MEDS: NAPH,MB-DB/K PH,MBDB POWDER PACKET PO SCH (22:32)
[2020-10-22] MEDS: ATORVASTATIN CA 40 MG TABLET (FP) PO SCH (22:32)
[2020-10-23] MEDS: INSULIN SLIDING SCALE (NOVOLOG) 1 VIAL SQ SCH ×8 (06:29→22:06)
[2020-10-23] MEDS: HEPARIN NA (PORCINE) 5,000 UNITS/ML 1ML VIAL SQ SCH ×3 (06:31→22:06)
[2020-10-23] MEDS: GABAPENTIN 400 MG CAPSULE PO SCH ×3 (06:32→22:04)
[2020-10-23] MEDS: NAPH,MB-DB/K PH,MBDB POWDER PACKET PO SCH ×3 (06:32→22:08)
[2020-10-23] MEDS: INSULIN (LEVEMIR) 100 UNITS/ML UNITS SQ SCH ×2 (07:26→22:05)
[2020-10-23 08:11] LABS: BASO % 0.6 % (0-2.0); EOS % 3.9 % (0-4.5); HEMATOCRIT 38.3 % (35.4-49); LYMPH % 23.8 % (8-40); MEAN CELL VOLUME 85.2 fl (80-96); MEAN PLT VOLUME 10.4 fl (7.5-11.1); MONO % 8.8 % (3.8-10.2); NEUT % 62.9 % (42.8-82.8); PLATELET COUNT 171 10^3/uL (134-434); RBC 4.49 M/mm3 (4.00-5.60); RDW 14.9 % (11.9-15.9); WHITE BLOOD COUNT 5.8 K/mm3 (4.0-10.0)
[2020-10-23 08:18] LABS: ALBUMIN 2.8 g/dl (3.4-5.0); BLOOD UREA NITROGEN 6.4 mg/dL (7-18); CALCIUM 8.1 mg/dL (8.5-10.1); MAGNESIUM 1.9 mg/dL (1.8-2.4)
[2020-10-23 08:22] LABS: CREATININE 0.6 mg/dL (0.55-1.3); PHOSPHOROUS 3.6 mg/dL (2.5-4.9)
[2020-10-23 08:23] LABS: BILIRUBIN,TOTAL 0.4 mg/dL (0.2-1); TOT PROT 5.9 g/dl (6.4-8.2)
[2020-10-23] MEDS: AMOX TR/POT CLAV 875MG/125MG TABLETS (FP) PO SCH ×2 (11:08→16:38)
[2020-10-23] MEDS: VALPROATE SODIUM 250 MG/5 ML UNIT DOSE CUP PO SCH ×2 (11:08→22:04)
[2020-10-23] MEDS: FOLIC ACID 1 MG TABLET (FP) PO SCH (11:08)
[2020-10-23] MEDS ORDERED: PT OWN MED DRAWER 7, Y5N ONE ×2 (13:53→21:53)
[2020-10-23] MEDS: SODIUM CHLORIDE 0.45% 1,000 ML IV SCH (20:00)
[2020-10-23] MEDS: ATORVASTATIN CA 40 MG TABLET (FP) PO SCH (22:04)
[2020-10-24] MEDS: INSULIN SLIDING SCALE (NOVOLOG) 1 VIAL SQ SCH ×6 (01:56→21:31)
[2020-10-24] MEDS: ACETAMINOPHEN 325 MG TABLET (FP) PO PRN ×2 (02:03→13:37)
[2020-10-24] MEDS ORDERED: PT OWN MED DRAWER 7, Y5N ONE ×3 (06:40→21:03)
[2020-10-24] MEDS: GABAPENTIN 400 MG CAPSULE PO SCH ×3 (06:43→21:30)
[2020-10-24] MEDS: NAPH,MB-DB/K PH,MBDB POWDER PACKET PO SCH ×3 (06:43→21:31)
[2020-10-24] MEDS: HEPARIN NA (PORCINE) 5,000 UNITS/ML 1ML VIAL SQ SCH ×3 (06:43→21:30)
[2020-10-24 07:48] LABS: BASO % 1.3 % (0-2.0); EOS % 3.2 % (0-4.5); HEMATOCRIT 36.5 % (35.4-49); HEMOGLOBIN 12.6 GM/dL (11.7-16.9); MCH 28.7 pg (25.7-33.7); MCHC 34.5 g/dl (32.0-35.9); MEAN CELL VOLUME 83.4 fl (80-96); MEAN PLT VOLUME 10.4 fl (7.5-11.1); MONO % 8.3 % (3.8-10.2); NEUT % 61.2 % (42.8-82.8); PLATELET COUNT 179 10^3/uL (134-434); RBC 4.38 M/mm3 (4.00-5.60); RDW 14.6 % (11.9-15.9); WHITE BLOOD COUNT 8.6 K/mm3 (4.0-10.0)
[2020-10-24 07:55] LABS: ALBUMIN 2.7 g/dl (3.4-5.0); BLOOD UREA NITROGEN 5.4 mg/dL (7-18); MAGNESIUM 1.9 mg/dL (1.8-2.4)
[2020-10-24 07:58] LABS: CREATININE 0.6 mg/dL (0.55-1.3); PHOSPHOROUS 2.7 mg/dL (2.5-4.9)
[2020-10-24 07:59] LABS: BILIRUBIN,TOTAL 0.3 mg/dL (0.2-1)
[2020-10-24] MEDS: INSULIN (LEVEMIR) 100 UNITS/ML UNITS SQ SCH ×2 (09:23→21:31)
[2020-10-24] MEDS: VALPROATE SODIUM 250 MG/5 ML UNIT DOSE CUP PO SCH ×2 (09:24→21:30)
[2020-10-24] MEDS: AMOX TR/POT CLAV 875MG/125MG TABLETS (FP) PO SCH ×2 (09:24→17:34)
[2020-10-24] MEDS: FOLIC ACID 1 MG TABLET (FP) PO SCH (09:24)
[2020-10-24] MEDS ORDERED: POTASSIUM CHLORIDE TABS 20 MEQ TABLET.ER (FP) PO ONE (09:30)
[2020-10-24] MEDS: ATORVASTATIN CA 40 MG TABLET (FP) PO SCH (21:30)
[2020-10-25] MEDS: GABAPENTIN 400 MG CAPSULE PO SCH ×2 (06:57→13:50)
[2020-10-25] MEDS: HEPARIN NA (PORCINE) 5,000 UNITS/ML 1ML VIAL SQ SCH ×2 (06:57→13:50)
[2020-10-25] MEDS: INSULIN SLIDING SCALE (NOVOLOG) 1 VIAL SQ SCH ×2 (07:04→12:08)
[2020-10-25] MEDS: INSULIN (LEVEMIR) 100 UNITS/ML UNITS SQ SCH (07:05)
[2020-10-25 08:03] LABS: CALCIUM 7.8 mg/dL (8.5-10.1)
[2020-10-25 08:04] LABS: ALBUMIN 2.5 g/dl (3.4-5.0); BLOOD UREA NITROGEN 5.4 mg/dL (7-18); MAGNESIUM 1.9 mg/dL (1.8-2.4)
[2020-10-25 08:07] LABS: CREATININE 0.6 mg/dL (0.55-1.3); PHOSPHOROUS 3.4 mg/dL (2.5-4.9)
[2020-10-25 08:09] LABS: BILIRUBIN,TOTAL 0.2 mg/dL (0.2-1); TOT PROT 5.4 g/dl (6.4-8.2)
[2020-10-25] MEDS: AMOX TR/POT CLAV 875MG/125MG TABLETS (FP) PO SCH (08:22)
[2020-10-25] MEDS ORDERED: POTASSIUM CHLORIDE TABS 20 MEQ TABLET.ER (FP) PO ONE (09:23)
[2020-10-25] MEDS ORDERED: PT OWN MED DRAWER 7, Y5N ONE ×2 (09:58→13:45)
[2020-10-25] MEDS: VALPROATE SODIUM 250 MG/5 ML UNIT DOSE CUP PO SCH (09:59)
[2020-10-25] MEDS: FOLIC ACID 1 MG TABLET (FP) PO SCH (09:59)
[2020-10-25 14:12] VITALS: BP 118/69; PULSE 80; TEMP 98.7
== END 2020-10-25 15:21 | disposition home or self-care (01) | DRG 420 ==
LOC: JER 17:24 → JERBED 20:47 → JICU 23:29 → J8W 10-20 14:15 → J2W 10-20 16:30 → J4S 10-22 19:00
PROVIDERS: ADMIT Internal Medicine Pulmonary Disease
DX: E11.10 Type 2 diabetes mellitus with ketoacidosis without coma (principal); E11.65 Type 2 diabetes mellitus with hyperglycemia; G40.909 Epilepsy, unspecified, not intractable, without status epilepticus; E87.0 Hyperosmolality and hypernatremia; E78.5 Hyperlipidemia, unspecified; F12.929 Cannabis use, unspecified with intoxication, unspecified; G93.41 Metabolic encephalopathy; R00.0 Tachycardia, unspecified; N17.9 Acute kidney failure, unspecified; J18.9 Pneumonia, unspecified organism; G47.33 Obstructive sleep apnea (adult) (pediatric); E86.0 Dehydration; F39 Unspecified mood [affective] disorder; F32.9 Major depressive disorder, single episode, unspecified; G31.84 Mild cognitive impairment of uncertain or unknown etiology; E87.2 Acidosis; N28.9 Disorder of kidney and ureter, unspecified; M54.9 Dorsalgia, unspecified; E66.01 Morbid (severe) obesity due to excess calories; Z68.39 Body mass index [BMI] 39.0-39.9, adult; Z87.820 Personal history of traumatic brain injury; W01.0XXA Fall on same level from slipping, tripping and stumbling without subsequent striking against object, initial encounter; Y92.238 Other place in hospital as the place of occurrence of the external cause
CPT/HCPCS: 36415; 36600; 70450-TC; 71045-TC-FY; 76775-TC; 80048; 80053; 80164; 80307; 81003; 82010; 82550; 82803; 82962; 83036; 83605; 83735; 83930; 83935; 84100; 84484; 85025; 85610; 85730; 87040; 87081; 87086; 87186; 93005; 93010; 93306-TC; 97116-GP; 97161-GP; 99291; C9803; J0131; J1644; J3480; U0003; U0005

== ENCOUNTER 2020-10-28 19:29 | Emergency (ER) | payer OTHER ==
[2020-10-28] MEDS ORDERED: SODIUM CHLORIDE 0.9% 500 ML INFUS.BAG IV ONE (20:23)
[2020-10-28 20:28] VITALS: BMI 37.3
[2020-10-28 21:34] LABS: VENOUS BASE EXCESS -7.4 mmol/L (-2-2); VENOUS O2 SATURATION 80.7 % (70-80); VENOUS PCO2 34.3 mmHg (38-52); VENOUS PH 7.328 (7.310-7.410)
[2020-10-28 21:39] LABS: BASO % 1.2 % (0-2.0); EOS % 2.6 % (0-4.5); HEMATOCRIT 36.8 % (35.4-49); HEMOGLOBIN 12.1 GM/dL (11.7-16.9); LYMPH % 37.1 % (8-40); MCH 28.7 pg (25.7-33.7); MCHC 32.8 g/dl (32.0-35.9); MEAN CELL VOLUME 87.6 fl (80-96); MEAN PLT VOLUME 10.2 fl (7.5-11.1); MONO % 16.5 % (3.8-10.2); NEUT % 42.6 % (42.8-82.8); PLATELET COUNT 274 10^3/uL (134-434); RBC 4.21 M/mm3 (4.00-5.60); RDW 15.2 % (11.9-15.9); WHITE BLOOD COUNT 6.5 K/mm3 (4.0-10.0)
[2020-10-28 21:40] LABS: URINE APPEARANCE CLEAR; URINE BILIRUBIN NEGATIVE (NEGATIVE); URINE COLOR YELLOW; URINE GLUCOSE (UA) 3+ (NEGATIVE); URINE KETONE 4+ (NEGATIVE); URINE LEUK ESTERASE NEGATIVE (NEGATIVE); URINE NITRITE NEGATIVE (NEGATIVE); URINE PROTEIN NEGATIVE (NEGATIVE); URINE UROBILINOGEN 0.2 mg/dL (0.2-1.0)
[2020-10-28 21:48] LABS: INR 1.03 (0.83-1.09); PROTHROMBIN TIME (PATIENT) 12.5 SEC (9.7-13.0)
[2020-10-28 21:50] LABS: ACTIVATED PTT 29.4 SECONDS (25.2-36.5)
[2020-10-28 22:05] LABS: CHLORIDE 101 mmol/L (98-107); SODIUM 137 mmol/L (136-145)
[2020-10-28 22:07] LABS: ANION GAP 18 MMOL/L (8-16); BLOOD UREA NITROGEN 10.6 mg/dL (7-18); CALCIUM 8.5 mg/dL (8.5-10.1); CO2 18 mmol/L (21-32)
[2020-10-28 22:08] LABS: MAGNESIUM 1.9 mg/dL (1.8-2.4)
[2020-10-28 22:10] LABS: SGPT/ALT 16 U/L (13-61)
[2020-10-28 22:11] LABS: CREATININE 1.1 mg/dL (0.55-1.3); PHOSPHOROUS 3.3 mg/dL (2.5-4.9); SGOT/AST 17 U/L (15-37)
[2020-10-28 22:12] LABS: BILIRUBIN,TOTAL 0.5 mg/dL (0.2-1); TOT PROT 6.6 g/dl (6.4-8.2)
[2020-10-28 22:13] LABS: ALK PHOS 121 U/L (45-117)
[2020-10-28 22:17] LABS: ANISOCYTOSIS 0; MACROCYTOSIS 0; PLATELET ESTIMATE NORMAL
[2020-10-28 22:24] LABS: GLUCOSE,RANDOM 469 mg/dL (74-106)
[2020-10-28] MEDS ORDERED: AMPICILLIN NA/SULBACTAM NA 3 GM in SODIUM CHLORIDE 100 ML IVPB ONE (22:42)
[2020-10-28 23:37] VITALS: BP 118/70; PULSE 90; TEMP 97.4
== END 2020-10-28 23:46 | disposition left against medical advice (07) ==
LOC: JER 19:29
DX: L03.116 Cellulitis of left lower limb (principal); E11.628 Type 2 diabetes mellitus with other skin complications; E11.10 Type 2 diabetes mellitus with ketoacidosis without coma
CPT/HCPCS: 36415; 71045-TC-FY; 73630-TC-LT; 80053; 81003; 82010; 82803; 82962; 83605; 83735; 84100; 84484; 85025; 85610; 85730; 87040; 87086; 93005; 93010; 99285-25

== ENCOUNTER 2021-05-19 10:31 | Inpatient (IN) | payer OTHER ==
[2021-05-19 11:03] LABS: VENOUS O2 SATURATION 69.3 % (70-80); VENOUS PCO2 32.6 mmHg (38-52); VENOUS PH 7.306 (7.310-7.410)
[2021-05-19] MEDS ORDERED: SODIUM CHLORIDE 0.9% 500 ML INFUS.BAG IV ONE ×2 (11:03→12:21)
[2021-05-19 11:05] LABS: HEMATOCRIT 49.2 % (35.4-49); HEMOGLOBIN 16.3 GM/dL (11.7-16.9); MCH 30.1 pg (25.7-33.7); MCHC 33.1 g/dl (32.0-35.9); MEAN CELL VOLUME 90.8 fl (80-96); MEAN PLT VOLUME 10.7 fl (7.5-11.1); PLATELET COUNT 284 10^3/uL (134-434); RBC 5.42 M/mm3 (4.00-5.60); RDW 13.4 % (11.9-15.9); WHITE BLOOD COUNT 13.1 K/mm3 (4.0-10.0)
[2021-05-19 11:11] LABS: INR 1.01 (0.83-1.09); PROTHROMBIN TIME (PATIENT) 11.6 SEC (9.7-13.0)
[2021-05-19 11:14] LABS: ACTIVATED PTT 31.4 SECONDS (25.2-36.5)
[2021-05-19 11:24] LABS: CHLORIDE 102 mmol/L (98-107); SODIUM 133 mmol/L (136-145)
[2021-05-19 11:27] LABS: ALBUMIN 4.6 g/dl (3.4-5.0); ANION GAP 16 MMOL/L (8-16); BLOOD UREA NITROGEN 19.8 mg/dL (7-18); CO2 15 mmol/L (21-32); LIPASE 23 U/L (73-393); MAGNESIUM 2.2 mg/dL (1.8-2.4)
[2021-05-19 11:29] LABS: CREATININE 1.7 mg/dL (0.55-1.3); SGPT/ALT 22 U/L (13-61)
[2021-05-19 11:30] LABS: SGOT/AST 22 U/L (15-37)
[2021-05-19 11:31] LABS: BILIRUBIN,TOTAL 0.7 mg/dL (0.2-1); TOT PROT 8.9 g/dl (6.4-8.2)
[2021-05-19 11:33] LABS: ALK PHOS 100 U/L (45-117)
[2021-05-19 11:42] LABS: GLUCOSE,RANDOM 411 mg/dL (74-106)
[2021-05-19] MEDS ORDERED: INSULIN REGULAR 100 UNITS in SODIUM CHLORIDE 99 ML IVPB SCH (12:00)
[2021-05-19] MEDS ORDERED: KCL 10 MEQ IVPB 10 MEQ/100 ML INFUS.BAG IVPB SCH (12:00)
[2021-05-19 12:05] LABS: PLATELET ESTIMATE NORMAL
[2021-05-19] MEDS ORDERED: KCL 10 MEQ IVPB 10 MEQ/100 ML INFUS.BAG IVPB ONE (12:05)
[2021-05-19 12:31] LABS: CALCIUM 10.2 mg/dL (8.5-10.1)
[2021-05-19 12:32] LABS: BLOOD UREA NITROGEN 19.4 mg/dL (7-18)
[2021-05-19 12:34] LABS: CREATININE 1.6 mg/dL (0.55-1.3)
[2021-05-19] MEDS ORDERED: FAMOTIDINE 20 MG/50 ML IVPB 20 MG/50 ML MG IVPB ONE ×2 (13:03→13:15)
[2021-05-19] MEDS ORDERED: ACETAMINOPHEN 1000 MG/100 ML BAG IVPB ONE (13:03)
[2021-05-19] MEDS ORDERED: LACTATED RINGERS SOLUTION 1,000 ML/1,000 ML INFUS.BAG IV STA (13:03)
[2021-05-19] MEDS ORDERED: INSULIN REGULAR HUMAN 100 UNITS/ML *VIAL IVPUSH ONE (13:04)
[2021-05-19] MEDS ORDERED: INSULIN REGULAR HUMAN 100 UNITS/ML *VIAL IV ONE (13:06)
[2021-05-19] MEDS ORDERED: ACETAMINOPHEN INJECTION 100 ML IVPB ONE (13:15)
[2021-05-19] MEDS: HALOPERIDOL 5 MG TABLET PO SCH (15:53)
[2021-05-19] MEDS: LACTATED RINGERS SOLUTION 1,000 ML/1,000 ML INFUS.BAG IV SCH (15:54)
[2021-05-19] MEDS ORDERED: INSULIN SLIDING SCALE (NOVOLOG) 1 VIAL SQ SCH (16:30)
[2021-05-19] MEDS: HEPARIN NA (PORCINE) 5,000 UNITS/ML 1ML VIAL SQ SCH (17:47)
[2021-05-19] MEDS: INSULIN SLIDING SCALE (NOVOLOG) 1 VIAL SQ SCH (17:49)
[2021-05-19 19:51] VITALS: BMI 31.8
[2021-05-19] MEDS ORDERED: PNEUMOC 13-VAL CONJ-DIP CRM/PF 0.5 ML DISP.SYRIN IM ONE (19:56)
[2021-05-19] MEDS ORDERED: PNEUMOCOCCAL 23 VACCINE 0.5 ML VIAL IM ONE (20:15)
[2021-05-19 20:22] LABS: BLOOD UREA NITROGEN 16.8 mg/dL (7-18); CALCIUM 9.8 mg/dL (8.5-10.1)
[2021-05-19 20:26] LABS: CREATININE 1.4 mg/dL (0.55-1.3)
[2021-05-19] MEDS: ATORVASTATIN CA 40 MG TABLET (FP) PO SCH (21:44)
[2021-05-19] MEDS: DIVALPROEX SODIUM 250 MG TABLET E.C. PO SCH (21:44)
[2021-05-19] MEDS: INSULIN (LEVEMIR) 100 UNITS/ML UNITS SQ SCH (21:45)
[2021-05-20] MEDS: INSULIN SLIDING SCALE (NOVOLOG) 1 VIAL SQ SCH ×6 (00:24→23:14)
[2021-05-20] MEDS: LACTATED RINGERS SOLUTION 1,000 ML/1,000 ML INFUS.BAG IV SCH ×2 (02:00→21:54)
[2021-05-20] MEDS: HEPARIN NA (PORCINE) 5,000 UNITS/ML 1ML VIAL SQ SCH ×3 (02:21→17:37)
[2021-05-20 03:05] LABS: COCAINE, UR NEGATIVE (NEGATIVE); URINE BARBITURATES NEGATIVE (NEGATIVE)
[2021-05-20 03:06] LABS: METHADONE, UR NEGATIVE (NEGATIVE); PHENCYCLIDINE,URINE NEGATIVE (NEGATIVE); URINE BENZODIAZEPINES NEGATIVE (NEGATIVE)
[2021-05-20 03:22] LABS: EPI CELLS 1 /uL (0-25.1); HYALINE CASTS 1 /uL (0-3.1); URINE APPEARANCE TURBID; URINE BACTERIA 1 /uL (0-1359); URINE BILIRUBIN NEGATIVE (NEGATIVE); URINE COLOR YELLOW; URINE GLUCOSE (UA) 3+ (NEGATIVE); URINE KETONE 2+ (NEGATIVE); URINE LEUK ESTERASE NEGATIVE (NEGATIVE); URINE NITRITE NEGATIVE (NEGATIVE); URINE PROTEIN TRACE (NEGATIVE); URINE RBC 3 /uL (0-23.9); URINE UROBILINOGEN 0.2 mg/dL (0.2-1.0); URINE WBC 3 /uL (0-25.8)
[2021-05-20 03:49] LABS: OPIATES, URI NEGATIVE (NEGATIVE); URINE AMPHETAMINES NEGATIVE (NEGATIVE)
[2021-05-20] MEDS: DIVALPROEX SODIUM 250 MG TABLET E.C. PO SCH ×3 (05:47→21:55)
[2021-05-20] MEDS: INSULIN (LEVEMIR) 100 UNITS/ML UNITS SQ SCH ×2 (06:22→21:56)
[2021-05-20 07:42] LABS: CALCIUM 9.7 mg/dL (8.5-10.1)
[2021-05-20 07:43] LABS: BLOOD UREA NITROGEN 13.3 mg/dL (7-18); MAGNESIUM 1.8 mg/dL (1.8-2.4)
[2021-05-20 07:46] LABS: PHOSPHOROUS 2.2 mg/dL (2.5-4.9)
[2021-05-20 07:47] LABS: BASO % 0.7 % (0-2.0); CREATININE 1.2 mg/dL (0.55-1.3); EOS % 0.1 % (0-4.5); HEMOGLOBIN 13.2 GM/dL (11.7-16.9); LYMPH % 31.8 % (8-40); MCH 30.6 pg (25.7-33.7); MCHC 34.9 g/dl (32.0-35.9); MEAN CELL VOLUME 87.7 fl (80-96); MEAN PLT VOLUME 10.4 fl (7.5-11.1); MONO % 8.4 % (3.8-10.2); PLATELET COUNT 198 10^3/uL (134-434); RBC 4.33 M/mm3 (4.00-5.60); RDW 13.1 % (11.9-15.9); WHITE BLOOD COUNT 8.5 K/mm3 (4.0-10.0)
[2021-05-20] MEDS: HALOPERIDOL 5 MG TABLET PO SCH (10:42)
[2021-05-20] MEDS: FOLIC ACID 1 MG TABLET (FP) PO SCH (10:42)
[2021-05-20] MEDS: POLYETHYLENE GLYCOL (HEALTHYLAX) 3350 17 GM PACKET PO SCH ×2 (18:39→21:55)
[2021-05-20] MEDS ORDERED: INSULIN (NOVOLOG) ASPART 100 UNITS/ML 10ML VIAL ONE (21:33)
[2021-05-20] MEDS: DOCUSATE SODIUM 100 MG CAPSULE (FP) PO SCH (21:55)
[2021-05-20] MEDS: ATORVASTATIN CA 40 MG TABLET (FP) PO SCH (21:55)
[2021-05-21] MEDS: HEPARIN NA (PORCINE) 5,000 UNITS/ML 1ML VIAL SQ SCH ×3 (02:30→17:50)
[2021-05-21] MEDS: DIVALPROEX SODIUM 250 MG TABLET E.C. PO SCH ×3 (06:07→21:17)
[2021-05-21] MEDS: INSULIN SLIDING SCALE (NOVOLOG) 1 VIAL SQ SCH ×3 (06:08→17:55)
[2021-05-21] MEDS: INSULIN (LEVEMIR) 100 UNITS/ML UNITS SQ SCH ×2 (06:08→21:17)
[2021-05-21 07:42] LABS: CALCIUM 8.6 mg/dL (8.5-10.1)
[2021-05-21 07:46] LABS: CREATININE 0.8 mg/dL (0.55-1.3)
[2021-05-21] MEDS: HALOPERIDOL 5 MG TABLET PO SCH (09:17)
[2021-05-21] MEDS: FOLIC ACID 1 MG TABLET (FP) PO SCH (09:17)
[2021-05-21] MEDS: POLYETHYLENE GLYCOL (HEALTHYLAX) 3350 17 GM PACKET PO SCH ×2 (09:18→21:15)
[2021-05-21] MEDS: DOCUSATE SODIUM 100 MG CAPSULE (FP) PO SCH (21:15)
[2021-05-21] MEDS: ATORVASTATIN CA 40 MG TABLET (FP) PO SCH (21:18)
[2021-05-22] MEDS: INSULIN SLIDING SCALE (NOVOLOG) 1 VIAL SQ SCH ×5 (01:38→23:05)
[2021-05-22] MEDS: HEPARIN NA (PORCINE) 5,000 UNITS/ML 1ML VIAL SQ SCH ×3 (01:39→18:01)
[2021-05-22] MEDS: DIVALPROEX SODIUM 250 MG TABLET E.C. PO SCH ×3 (06:20→21:29)
[2021-05-22] MEDS: INSULIN (LEVEMIR) 100 UNITS/ML UNITS SQ SCH ×2 (06:21→21:37)
[2021-05-22 07:55] LABS: BLOOD UREA NITROGEN 10.1 mg/dL (7-18); CALCIUM 8.8 mg/dL (8.5-10.1); MAGNESIUM 1.9 mg/dL (1.8-2.4)
[2021-05-22 07:58] LABS: CREATININE 0.7 mg/dL (0.55-1.3); PHOSPHOROUS 3.4 mg/dL (2.5-4.9)
[2021-05-22] MEDS ORDERED: POTASSIUM CHLORIDE TABS 20 MEQ TABLET.ER (FP) PO ONE (10:15)
[2021-05-22] MEDS: HALOPERIDOL 5 MG TABLET PO SCH (10:18)
[2021-05-22] MEDS: FOLIC ACID 1 MG TABLET (FP) PO SCH (10:18)
[2021-05-22] MEDS: POLYETHYLENE GLYCOL (HEALTHYLAX) 3350 17 GM PACKET PO SCH ×2 (10:19→21:33)
[2021-05-22] MEDS: ATORVASTATIN CA 40 MG TABLET (FP) PO SCH (21:28)
[2021-05-22] MEDS: DOCUSATE SODIUM 100 MG CAPSULE (FP) PO SCH (21:29)
[2021-05-23] MEDS: HEPARIN NA (PORCINE) 5,000 UNITS/ML 1ML VIAL SQ SCH ×2 (02:09→09:44)
[2021-05-23] MEDS: DIVALPROEX SODIUM 250 MG TABLET E.C. PO SCH (05:59)
[2021-05-23] MEDS: INSULIN (LEVEMIR) 100 UNITS/ML UNITS SQ SCH (06:43)
[2021-05-23] MEDS: INSULIN SLIDING SCALE (NOVOLOG) 1 VIAL SQ SCH ×2 (06:43→11:11)
[2021-05-23] MEDS ORDERED: INSULIN (LEVEMIR) 100 UNITS/ML UNITS SQ SCH ×2 (08:01→22:00)
[2021-05-23] MEDS ORDERED: INSULIN (LEVEMIR) 100 UNITS/ML UNITS SQ ONE (08:01)
[2021-05-23 09:06] VITALS: BP 115/76; PULSE 102; TEMP 98.9
[2021-05-23] MEDS: POLYETHYLENE GLYCOL (HEALTHYLAX) 3350 17 GM PACKET PO SCH (09:44)
[2021-05-23] MEDS: FOLIC ACID 1 MG TABLET (FP) PO SCH (09:44)
[2021-05-23] MEDS: HALOPERIDOL 5 MG TABLET PO SCH (09:44)
[2021-05-23] MEDS ORDERED: GABAPENTIN 400 MG CAPSULE PO SCH (14:00)
== END 2021-05-23 14:00 | disposition home or self-care (01) | DRG 420 ==
LOC: JER 10:31 → JERBED 10:55 → J4W 14:20
PROVIDERS: ADMIT Internal Medicine
DX: E11.10 Type 2 diabetes mellitus with ketoacidosis without coma (principal); G40.909 Epilepsy, unspecified, not intractable, without status epilepticus; N17.9 Acute kidney failure, unspecified; E86.0 Dehydration; Z87.820 Personal history of traumatic brain injury; E11.65 Type 2 diabetes mellitus with hyperglycemia; F39 Unspecified mood [affective] disorder; F32.A Depression, unspecified; E78.5 Hyperlipidemia, unspecified; G93.41 Metabolic encephalopathy
CPT/HCPCS: 36415; 70450-TC; 71045-TC-FY; 80048; 80053; 80307; 81003; 82010; 82803; 82962; 83605; 83690; 83735; 84100; 85025; 85610; 85730; 87086; 93005; 93010; 95816; 99285-25; C9803; J1644; U0003; U0005

== ENCOUNTER 2021-09-21 00:32 | Inpatient (IN) | payer OTHER ==
[2021-09-21 00:41] VITALS: BMI 26.4
[2021-09-21] MEDS ORDERED: LACTATED RINGERS SOLUTION 1000 ML INFUS.BAG IV ONE ×4 (01:48→06:00)
[2021-09-21 02:41] LABS: VENOUS BASE EXCESS -14.8 mmol/L (-2-2); VENOUS O2 SATURATION 85.3 % (70-80); VENOUS PH 7.258 (7.310-7.410)
[2021-09-21 02:42] LABS: BASO % 0.2 % (0-2.0); HEMATOCRIT 47.4 % (35.4-49); HEMOGLOBIN 15.9 GM/dL (11.7-16.9); LYMPH % 13.5 % (8-40); MCH 29.9 pg (25.7-33.7); MCHC 33.6 g/dl (32.0-35.9); MEAN CELL VOLUME 88.9 fl (80-96); MEAN PLT VOLUME 10.7 fl (7.5-11.1); MONO % 7.8 % (3.8-10.2); NEUT % 78.5 % (42.8-82.8); PLATELET COUNT 249 10^3/uL (134-434); RBC 5.33 M/mm3 (4.00-5.60); RDW 12.7 % (11.9-15.9); WHITE BLOOD COUNT 13.9 K/mm3 (4.0-10.0)
[2021-09-21 03:04] LABS: CALCIUM 9.8 mg/dL (8.5-10.1)
[2021-09-21 03:05] LABS: ALBUMIN 4.6 g/dl (3.4-5.0); BLOOD UREA NITROGEN 16.6 mg/dL (7-18)
[2021-09-21 03:08] LABS: CREATININE 1.4 mg/dL (0.55-1.3)
[2021-09-21 03:10] LABS: BILIRUBIN,TOTAL 0.7 mg/dL (0.2-1); TOT PROT 8.3 g/dl (6.4-8.2)
[2021-09-21] MEDS ORDERED: INSULIN REGULAR HUMAN 100 UNITS/ML *VIAL* (FOR IVP) IVPUSH ONE (03:54)
[2021-09-21] MEDS ORDERED: DEXTROSE 50%-WATER - 25 GM/50 ML VIAL IVPUSH PRN ×3 (03:54→18:02)
[2021-09-21] MEDS ORDERED: INSULIN REGULAR 100 UNITS in SODIUM CHLORIDE 99 ML IVPB SCH (04:00)
[2021-09-21] MEDS ORDERED: DEXTROSE 5%-0.45% SALINE 1,000 ML IV SCH ×2 (04:30→07:00)
[2021-09-21] MEDS ORDERED: AZITHROMYCIN IVPB 500 MG/250 ML BAG IVPB ONE ×2 (05:53→10:00)
[2021-09-21] MEDS ORDERED: PIPERACILLIN/TAZOB 3.375 GM 3.375 GM in DEXTROSE 5%-WATER - 50 ML IVPB SCH (06:00)
[2021-09-21] MEDS ORDERED: ONDANSETRON 4 MG/2 ML VIAL IVPUSH PRN ×2 (06:54→18:02)
[2021-09-21] MEDS ORDERED: SODIUM CHLORIDE 1,000 ML with POTASSIUM CHLORIDE 30 MEQ IV SCH (07:45)
[2021-09-21] MEDS ORDERED: SODIUM CHLORIDE 0.45% 1,000 ML IV SCH (08:15)
[2021-09-21] MEDS: HEPARIN NA (PORCINE) 5,000 UNITS/ML 1ML VIAL SQ SCH ×3 (09:55→22:55)
[2021-09-21] MEDS ORDERED: MUPIROCIN 2% TOPICAL OINTMENT FOR DECOLONIZATION NS SCH ×4 (10:00→22:00)
[2021-09-21] MEDS ORDERED: PANTOPRAZOLE SODIUM 40 MG VIAL IVPUSH ONE (10:00)
[2021-09-21] MEDS ORDERED: DOXYCYCLINE INJECTION 100 MG in DEXTROSE 5%-WATER 100 ML IVPB SCH (10:00)
[2021-09-21] MEDS ORDERED: THIAMINE HCL 200 MG/2 ML VIAL IVPB ONE (10:10)
[2021-09-21 10:29] LABS: BASO % 0.2 % (0-2.0); HEMATOCRIT 42.9 % (35.4-49); HEMOGLOBIN 14.4 GM/dL (11.7-16.9); MCH 29.9 pg (25.7-33.7); MCHC 33.7 g/dl (32.0-35.9); MEAN CELL VOLUME 88.7 fl (80-96); MONO % 3.4 % (3.8-10.2); NEUT % 81.4 % (42.8-82.8); PLATELET COUNT 246 10^3/uL (134-434); RBC 4.83 M/mm3 (4.00-5.60); RDW 12.9 % (11.9-15.9); WHITE BLOOD COUNT 13.5 K/mm3 (4.0-10.0)
[2021-09-21 10:34] LABS: CHLORIDE 104 mmol/L (98-107); SODIUM 138 mmol/L (136-145)
[2021-09-21 10:36] LABS: ANION GAP 18 MMOL/L (8-16); BLOOD UREA NITROGEN 15.6 mg/dL (7-18); CALCIUM 9.6 mg/dL (8.5-10.1); CO2 15 mmol/L (21-32)
[2021-09-21 10:37] LABS: GLUCOSE,RANDOM 190 mg/dL (74-106)
[2021-09-21 10:40] LABS: CHOLESTEROL 235 mg/dL (50-200); CREATININE 1.5 mg/dL (0.55-1.3)
[2021-09-21 10:41] LABS: LDL CHOLESTEROL (ONLY SJRH) 170 mg/dL (5-100); TRIGLYCERIDES 171 mg/dL (0-150)
[2021-09-21 10:43] LABS: HDL CHOLESTEROL 39 mg/dL (40-60)
[2021-09-21 10:57] LABS: EPI CELLS 3 /uL (0-25.1); HYALINE CASTS 2 /uL (0-3.1); PH,URINE 5.5 (5.0-8.0); URINE APPEARANCE CLEAR; URINE BACTERIA 0 /uL (0-1359); URINE BILIRUBIN NEGATIVE (NEGATIVE); URINE COLOR YELLOW; URINE GLUCOSE (UA) 2+ (NEGATIVE); URINE KETONE 4+ (NEGATIVE); URINE LEUK ESTERASE NEGATIVE (NEGATIVE); URINE NITRITE NEGATIVE (NEGATIVE); URINE PROTEIN 2+ (NEGATIVE); URINE RBC 5 /uL (0-23.9); URINE WBC 4 /uL (0-25.8)
[2021-09-21 11:01] LABS: COCAINE, UR NEGATIVE (NEGATIVE)
[2021-09-21 11:02] LABS: PHENCYCLIDINE,URINE NEGATIVE (NEGATIVE); URINE BENZODIAZEPINES NEGATIVE (NEGATIVE)
[2021-09-21 11:03] LABS: METHADONE, UR NEGATIVE (NEGATIVE); OPIATES, URI NEGATIVE (NEGATIVE); URINE BARBITURATES NEGATIVE (NEGATIVE)
[2021-09-21 11:04] LABS: URINE AMPHETAMINES NEGATIVE (NEGATIVE)
[2021-09-21] MEDS ORDERED: LACTATED RINGERS SOLUTION 1,000 ML/1,000 ML INFUS.BAG IV SCH (11:30)
[2021-09-21] MEDS: LACTATED RINGERS SOLUTION 1,000 ML/1,000 ML INFUS.BAG IV SCH ×2 (12:35→22:54)
[2021-09-21] MEDS ORDERED: DIVALPROEX SODIUM 250 MG TABLET E.C. PO SCH (14:00)
[2021-09-21] MEDS ORDERED: INSULIN SLIDING SCALE (NOVOLOG) 1 VIAL SQ SCH (16:30)
[2021-09-21] MEDS: INSULIN (LEVEMIR) 100 UNITS/ML UNITS SQ SCH (17:00)
[2021-09-21] MEDS: PIPERACILLIN/TAZOB 3.375 GM 3.375 GM in DEXTROSE 5%-WATER - 50 ML IVPB SCH (18:26)
[2021-09-21] MEDS ORDERED: CHLORHEXIDINE GLUCONATE 4% CLEANSER FOR DECOLONIZATION TP SCH ×3 (22:00)
[2021-09-21] MEDS ORDERED: ATORVASTATIN CA 40 MG TABLET (FP) PO SCH (22:00)
[2021-09-21] MEDS: ATORVASTATIN CA 40 MG TABLET (FP) PO SCH (22:54)
[2021-09-21] MEDS: DIVALPROEX SODIUM 250 MG TABLET E.C. PO SCH (22:54)
[2021-09-21] MEDS: INSULIN SLIDING SCALE (NOVOLOG) 1 VIAL SQ SCH (23:00)
[2021-09-22] MEDS: DIVALPROEX SODIUM 250 MG TABLET E.C. PO SCH ×3 (06:11→21:59)
[2021-09-22] MEDS: HEPARIN NA (PORCINE) 5,000 UNITS/ML 1ML VIAL SQ SCH ×3 (06:11→21:59)
[2021-09-22] MEDS: INSULIN (LEVEMIR) 100 UNITS/ML UNITS SQ SCH ×2 (06:12→18:05)
[2021-09-22] MEDS: INSULIN SLIDING SCALE (NOVOLOG) 1 VIAL SQ SCH ×4 (06:15→22:05)
[2021-09-22 07:14] LABS: BASO % 0.8 % (0-2.0); EOS % 0.2 % (0-4.5); HEMATOCRIT 42.4 % (35.4-49); HEMOGLOBIN 14.5 GM/dL (11.7-16.9); LYMPH % 38.7 % (8-40); MCH 29.6 pg (25.7-33.7); MCHC 34.2 g/dl (32.0-35.9); MEAN CELL VOLUME 86.6 fl (80-96); MEAN PLT VOLUME 10.2 fl (7.5-11.1); MONO % 8.6 % (3.8-10.2); NEUT % 51.7 % (42.8-82.8); PLATELET COUNT 218 10^3/uL (134-434); WHITE BLOOD COUNT 7.2 K/mm3 (4.0-10.0)
[2021-09-22 07:30] LABS: CALCIUM 9.6 mg/dL (8.5-10.1)
[2021-09-22 07:31] LABS: ALBUMIN 3.8 g/dl (3.4-5.0); BLOOD UREA NITROGEN 12.5 mg/dL (7-18)
[2021-09-22 07:34] LABS: CREATININE 1.2 mg/dL (0.55-1.3); PHOSPHOROUS 2.3 mg/dL (2.5-4.9)
[2021-09-22 07:35] LABS: BILIRUBIN,TOTAL 0.7 mg/dL (0.2-1); TOT PROT 7.2 g/dl (6.4-8.2)
[2021-09-22] MEDS ORDERED: THIAMINE HCL 100 MG TABLET (FP) PO SCH (10:00)
[2021-09-22] MEDS ORDERED: AZITHROMYCIN IVPB 250 MG in DEXTROSE 5%-WATER - 250 ML IVPB SCH (10:00)
[2021-09-22] MEDS: FOLIC ACID 1 MG TABLET (FP) PO SCH (11:06)
[2021-09-22] MEDS: THIAMINE HCL 100 MG TABLET (FP) PO SCH (11:06)
[2021-09-22] MEDS: GABAPENTIN 400 MG CAPSULE PO SCH ×2 (14:19→21:59)
[2021-09-22] MEDS: LACTATED RINGERS SOLUTION 1,000 ML/1,000 ML INFUS.BAG IV SCH (14:21)
[2021-09-22] MEDS: AMINO ACIDS/PROTEIN HYDROLYS 30 ML LIQUID.PKT PO SCH (18:05)
[2021-09-22] MEDS: NAPH,MB-DB/K PH,MBDB POWDER PACKET PO SCH ×2 (18:05→22:00)
[2021-09-22] MEDS: ATORVASTATIN CA 40 MG TABLET (FP) PO SCH (21:59)
[2021-09-22] MEDS ORDERED: DOCUSATE SODIUM 100 MG CAPSULE (FP) PO SCH (22:00)
[2021-09-23] MEDS: DIVALPROEX SODIUM 250 MG TABLET E.C. PO SCH (06:18)
[2021-09-23] MEDS: HEPARIN NA (PORCINE) 5,000 UNITS/ML 1ML VIAL SQ SCH ×2 (06:18→14:34)
[2021-09-23] MEDS: NAPH,MB-DB/K PH,MBDB POWDER PACKET PO SCH (06:18)
[2021-09-23] MEDS: INSULIN SLIDING SCALE (NOVOLOG) 1 VIAL SQ SCH ×3 (06:19→17:33)
[2021-09-23] MEDS: INSULIN (LEVEMIR) 100 UNITS/ML UNITS SQ SCH (06:19)
[2021-09-23] MEDS: GABAPENTIN 400 MG CAPSULE PO SCH ×3 (07:00→14:34)
[2021-09-23 08:57] LABS: BASO % 0.7 % (0-2.0); EOS % 1.6 % (0-4.5); HEMATOCRIT 42.4 % (35.4-49); HEMOGLOBIN 14.6 GM/dL (11.7-16.9); LYMPH % 58.1 % (8-40); MCH 29.8 pg (25.7-33.7); MCHC 34.5 g/dl (32.0-35.9); MEAN CELL VOLUME 86.4 fl (80-96); MEAN PLT VOLUME 10.4 fl (7.5-11.1); MONO % 8.4 % (3.8-10.2); NEUT % 31.2 % (42.8-82.8); PLATELET COUNT 187 10^3/uL (134-434); WHITE BLOOD COUNT 5.2 K/mm3 (4.0-10.0)
[2021-09-23 09:12] LABS: ALBUMIN 3.6 g/dl (3.4-5.0); CALCIUM 9.6 mg/dL (8.5-10.1); MAGNESIUM 2.1 mg/dL (1.8-2.4)
[2021-09-23 09:13] LABS: BLOOD UREA NITROGEN 14.3 mg/dL (7-18)
[2021-09-23 09:17] LABS: BILIRUBIN,TOTAL 0.7 mg/dL (0.2-1); TOT PROT 6.8 g/dl (6.4-8.2)
[2021-09-23] MEDS ORDERED: POTASSIUM CHLORIDE TABS 20 MEQ TABLET.ER (FP) PO ONE (09:21)
[2021-09-23] MEDS ORDERED: INSULIN (LEVEMIR) 100 UNITS/ML UNITS SQ SCH (09:22)
[2021-09-23] MEDS ORDERED: MULTIVIT-MINERALS ORAL LIQUID PO SCH (10:00)
[2021-09-23] MEDS ORDERED: ASCORBIC ACID 250 MG TABLET (FP) PO SCH (10:00)
[2021-09-23] MEDS: FOLIC ACID 1 MG TABLET (FP) PO SCH (10:30)
[2021-09-23] MEDS: AMINO ACIDS/PROTEIN HYDROLYS 30 ML LIQUID.PKT PO SCH ×2 (10:30→17:33)
[2021-09-23] MEDS: THIAMINE HCL 100 MG TABLET (FP) PO SCH (10:30)
[2021-09-23 14:31] VITALS: BP 154/90; PULSE 95; TEMP 99
[2021-09-23] MEDS ORDERED: DIVALPROEX SODIUM 500 MG TABLET E.C. PO SCH (22:00)
[2021-09-24] MEDS ORDERED: ESCITALOPRAM OXALATE 10 MG TABLET PO SCH (10:00)
== END 2021-09-23 21:20 | disposition home or self-care (01) | DRG 420 ==
LOC: JER 00:32 → JERBED 04:19 → JICU 06:35 → J7W 18:07
PROVIDERS: ADMIT Internal Medicine Pulmonary Disease; ATTEND Nurse Practitioner Acute Care
DX: E11.10 Type 2 diabetes mellitus with ketoacidosis without coma (principal); N17.9 Acute kidney failure, unspecified; E86.0 Dehydration; G40.909 Epilepsy, unspecified, not intractable, without status epilepticus; Z87.820 Personal history of traumatic brain injury; Z68.26 Body mass index [BMI] 26.0-26.9, adult; E86.1 Hypovolemia; Z79.4 Long term (current) use of insulin; E78.5 Hyperlipidemia, unspecified; Z91.14 Patient's other noncompliance with medication regimen; F19.20 Other psychoactive substance dependence, uncomplicated; E66.01 Morbid (severe) obesity due to excess calories
CPT/HCPCS: 36415; 70450-TC; 71045-TC-FY; 76775-TC; 80048; 80053; 80061; 80164; 80307; 81003; 82010; 82140; 82550; 82803; 82962; 83036; 83605; 83735; 83930; 83935; 84100; 85025; 87040; 87086; 87804; 87899; 93005; 93010; 97116-GP; 97161-GP; 99291; 99292; C9803-CS; J1644; U0003; U0005

== ENCOUNTER 2021-11-13 11:12 | Inpatient (IN) | payer OTHER ==
[2021-11-13 12:07] VITALS: BMI 27.8
[2021-11-13 12:51] LABS: BASO % 0.2 % (0-2.0); HEMATOCRIT 44.3 % (35.4-49); HEMOGLOBIN 14.5 GM/dL (11.7-16.9); LYMPH % 13.5 % (8-40); MCH 30.7 pg (25.7-33.7); MCHC 32.8 g/dl (32.0-35.9); MEAN CELL VOLUME 93.6 fl (80-96); MEAN PLT VOLUME 11.5 fl (7.5-11.1); MONO % 2.4 % (3.8-10.2); NEUT % 83.9 % (42.8-82.8); PLATELET COUNT 220 10^3/uL (134-434); RBC 4.73 M/mm3 (4.00-5.60)
[2021-11-13 12:54] LABS: VENOUS BASE EXCESS -24.4 mmol/L (-2-2); VENOUS PCO2 20.2 mmHg (38-52)
[2021-11-13 12:56] LABS: VENOUS PH 7.015 (7.310-7.410)
[2021-11-13] MEDS ORDERED: INSULIN REGULAR 100 UNITS in SODIUM CHLORIDE 99 ML IVPB SCH ×2 (13:00→14:57)
[2021-11-13 13:16] LABS: CHLORIDE 96 mmol/L (98-107); SODIUM 132 mmol/L (136-145)
[2021-11-13 13:18] LABS: ALBUMIN 4.5 g/dl (3.4-5.0); ANION GAP 31 MMOL/L (8-16); BLOOD UREA NITROGEN 17.9 mg/dL (7-18); CALCIUM 9.5 mg/dL (8.5-10.1); CO2 5 mmol/L (21-32)
[2021-11-13 13:21] LABS: SGPT/ALT 24 U/L (13-61)
[2021-11-13 13:22] LABS: SGOT/AST 10 U/L (15-37)
[2021-11-13 13:23] LABS: BILIRUBIN,TOTAL 0.7 mg/dL (0.2-1); TOT PROT 7.8 g/dl (6.4-8.2)
[2021-11-13 13:24] LABS: ALK PHOS 84 U/L (45-117)
[2021-11-13 13:41] LABS: GLUCOSE,RANDOM 572 mg/dL (74-106); LACTIC ACID 3.4 mmol/L (0.4-2.0)
[2021-11-13] MEDS ORDERED: SODIUM CHLORIDE 2,000 ML IV STA (14:57)
[2021-11-13] MEDS ORDERED: cefTRIAXone SODIUM 1 GM VIAL ONE (16:37)
[2021-11-13] MEDS: CEFTRIAXONE 1 GM in DEXTROSE 5%-WATER - 50 ML IVPB SCH (16:42)
[2021-11-13 16:44] LABS: EPI CELLS 4 /uL (0-25.1); HYALINE CASTS 0 /uL (0-3.1); URINE APPEARANCE CLEAR; URINE BACTERIA 313 /uL (0-1359); URINE BILIRUBIN NEGATIVE (NEGATIVE); URINE COLOR YELLOW; URINE GLUCOSE (UA) 2+ (NEGATIVE); URINE KETONE 4+ (NEGATIVE); URINE LEUK ESTERASE NEGATIVE (NEGATIVE); URINE NITRITE NEGATIVE (NEGATIVE); URINE PROTEIN 1+ (NEGATIVE); URINE RBC 18 /uL (0-23.9); URINE UROBILINOGEN 0.2 mg/dL (0.2-1.0); URINE WBC 3 /uL (0-25.8)
[2021-11-13 17:08] LABS: CALCIUM 8.2 mg/dL (8.5-10.1); CHLORIDE 103 mmol/L (98-107); SODIUM 138 mmol/L (136-145)
[2021-11-13 17:09] LABS: COCAINE, UR NEGATIVE (NEGATIVE); METHADONE, UR NEGATIVE (NEGATIVE); PHENCYCLIDINE,URINE NEGATIVE (NEGATIVE); URINE BARBITURATES NEGATIVE (NEGATIVE)
[2021-11-13 17:09] LABS: ANION GAP 30 MMOL/L (8-16); BLOOD UREA NITROGEN 16.5 mg/dL (7-18); CO2 5 mmol/L (21-32)
[2021-11-13 17:12] LABS: CREATININE 1.7 mg/dL (0.55-1.3)
[2021-11-13 17:21] LABS: OPIATES, URI NEGATIVE (NEGATIVE); URINE AMPHETAMINES NEGATIVE (NEGATIVE); URINE BENZODIAZEPINES NEGATIVE (NEGATIVE)
[2021-11-13 17:21] LABS: GLUCOSE,RANDOM 434 mg/dL (74-106); LACTIC ACID 2.5 mmol/L (0.4-2.0)
[2021-11-13] MEDS: MUPIROCIN 2% TOPICAL OINTMENT FOR DECOLONIZATION NS SCH (22:24)
[2021-11-13] MEDS: HEPARIN NA (PORCINE) 5,000 UNITS/ML 1ML VIAL SQ SCH (22:25)
[2021-11-13] MEDS: DOXYCYCLINE INJECTION 100 MG in DEXTROSE 5%-WATER 100 ML IVPB SCH (22:26)
[2021-11-13] MEDS: CHLORHEXIDINE GLUCONATE 4% CLEANSER FOR DECOLONIZATION TP SCH (22:26)
[2021-11-13] MEDS ORDERED: DEXTROSE 5%-0.45% SALINE 1,000 ML IV SCH ×2 (22:30)
[2021-11-13 22:37] LABS: BASO % 1.2 % (0-2.0); HEMATOCRIT 44.8 % (35.4-49); HEMOGLOBIN 15.2 GM/dL (11.7-16.9); LYMPH % 8.9 % (8-40); MCH 30.3 pg (25.7-33.7); MCHC 33.9 g/dl (32.0-35.9); MEAN CELL VOLUME 89.2 fl (80-96); MEAN PLT VOLUME 10.5 fl (7.5-11.1); NEUT % 83.9 % (42.8-82.8); PLATELET COUNT 181 10^3/uL (134-434); RBC 5.03 M/mm3 (4.00-5.60); RDW 13.8 % (11.9-15.9); WHITE BLOOD COUNT 20.2 K/mm3 (4.0-10.0)
[2021-11-13 23:06] LABS: BLOOD UREA NITROGEN 14.1 mg/dL (7-18); CALCIUM 9.2 mg/dL (8.5-10.1)
[2021-11-13 23:07] LABS: ALBUMIN 4.1 g/dl (3.4-5.0); MAGNESIUM 2.1 mg/dL (1.8-2.4)
[2021-11-13 23:09] LABS: PHOSPHOROUS 2.2 mg/dL (2.5-4.9)
[2021-11-13 23:10] LABS: CREATININE 1.7 mg/dL (0.55-1.3)
[2021-11-13 23:11] LABS: BILIRUBIN,TOTAL 0.8 mg/dL (0.2-1); TOT PROT 7.9 g/dl (6.4-8.2)
[2021-11-13] MEDS ORDERED: ONDANSETRON 4 MG/2 ML VIAL IVPUSH PRN (23:47)
[2021-11-13 23:53] LABS: ANISOCYTOSIS 1+; MACROCYTOSIS 0
[2021-11-14 03:04] LABS: BLOOD UREA NITROGEN 12.6 mg/dL (7-18); CALCIUM 8.9 mg/dL (8.5-10.1); MAGNESIUM 1.9 mg/dL (1.8-2.4)
[2021-11-14 03:06] LABS: PHOSPHOROUS 1.6 mg/dL (2.5-4.9)
[2021-11-14 03:07] LABS: CREATININE 1.6 mg/dL (0.55-1.3)
[2021-11-14] MEDS: HEPARIN NA (PORCINE) 5,000 UNITS/ML 1ML VIAL SQ SCH ×3 (06:40→23:35)
[2021-11-14 07:29] LABS: ARTERIAL BLD GAS O2 SATURATION 96.9 % (95-98); ARTERIAL BLOOD GAS BASE EXCESS -10.2 mmol/L (-2-2); ARTERIAL BLOOD GAS PO2 96.9 mmHg (80-100); ARTERIAL BLOOD GAS pH 7.309 (7.350-7.450)
[2021-11-14 07:35] LABS: ALLENS TEST POSITIVE
[2021-11-14] MEDS ORDERED: MAGNESIUM SULF 50% (8.12 MEQ/2 ML-1 GM VIAL) IVPB ONE (08:00)
[2021-11-14] MEDS ORDERED: NAPH,MB-DB/K PH,MBDB POWDER PACKET PO ONE (08:00)
[2021-11-14] MEDS: KCL 10 MEQ IVPB 10 MEQ/100 ML INFUS.BAG IVPB SCH ×3 (08:30→11:21)
[2021-11-14] MEDS: DIVALPROEX SODIUM 250 MG TABLET E.C. PO SCH ×3 (09:41→23:36)
[2021-11-14] MEDS: CEFTRIAXONE 1 GM in DEXTROSE 5%-WATER - 50 ML IVPB SCH (09:46)
[2021-11-14] MEDS: DOXYCYCLINE INJECTION 100 MG in DEXTROSE 5%-WATER 100 ML IVPB SCH ×2 (09:47→23:34)
[2021-11-14] MEDS: MUPIROCIN 2% TOPICAL OINTMENT FOR DECOLONIZATION NS SCH (09:47)
[2021-11-14 10:14] LABS: BASO % 1.5 % (0-2.0); EOS % 0.4 % (0-4.5); HEMATOCRIT 34.2 % (35.4-49); HEMOGLOBIN 12.3 GM/dL (11.7-16.9); LYMPH % 15.5 % (8-40); MCH 31.2 pg (25.7-33.7); MCHC 35.9 g/dl (32.0-35.9); MEAN CELL VOLUME 87.1 fl (80-96); MEAN PLT VOLUME 10.7 fl (7.5-11.1); MONO % 7.9 % (3.8-10.2); NEUT % 74.7 % (42.8-82.8); RBC 3.93 M/mm3 (4.00-5.60); WHITE BLOOD COUNT 12.8 K/mm3 (4.0-10.0)
[2021-11-14 10:20] LABS: BLOOD UREA NITROGEN 10.4 mg/dL (7-18); CALCIUM 9.3 mg/dL (8.5-10.1); MAGNESIUM 1.9 mg/dL (1.8-2.4)
[2021-11-14 10:21] LABS: ALBUMIN 3.8 g/dl (3.4-5.0)
[2021-11-14 10:24] LABS: CREATININE 1.3 mg/dL (0.55-1.3); PHOSPHOROUS 1.2 mg/dL (2.5-4.9)
[2021-11-14 10:25] LABS: BILIRUBIN,TOTAL 0.6 mg/dL (0.2-1); TOT PROT 6.8 g/dl (6.4-8.2)
[2021-11-14] MEDS: INSULIN (LEVEMIR) 100 UNITS/ML UNITS SQ SCH (11:21)
[2021-11-14] MEDS ORDERED: INSULIN SLIDING SCALE (NOVOLOG) 1 VIAL SQ SCH (14:00)
[2021-11-14] MEDS: INSULIN SLIDING SCALE (NOVOLOG) 1 VIAL SQ SCH (16:37)
[2021-11-14] MEDS: INSULIN (NOVOLOG) ASPART 100 UNITS/ML 10ML VIAL SQ SCH (16:37)
[2021-11-14] MEDS: SODIUM CHLORIDE 0.45% 1,000 ML IV SCH (16:37)
[2021-11-14] MEDS ORDERED: ATORVASTATIN CA 40 MG TABLET (FP) PO SCH (22:00)
[2021-11-15] MEDS: INSULIN (LEVEMIR) 100 UNITS/ML UNITS SQ SCH ×3 (00:06→21:22)
[2021-11-15] MEDS: INSULIN SLIDING SCALE (NOVOLOG) 1 VIAL SQ SCH ×5 (00:07→21:22)
[2021-11-15] MEDS: CHLORHEXIDINE GLUCONATE 4% CLEANSER FOR DECOLONIZATION TP SCH (00:57)
[2021-11-15] MEDS: HEPARIN NA (PORCINE) 5,000 UNITS/ML 1ML VIAL SQ SCH ×3 (06:01→21:21)
[2021-11-15] MEDS: DIVALPROEX SODIUM 250 MG TABLET E.C. PO SCH ×3 (06:02→21:23)
[2021-11-15] MEDS: INSULIN (NOVOLOG) ASPART 100 UNITS/ML 10ML VIAL SQ SCH ×3 (06:04→17:57)
[2021-11-15] MEDS ORDERED: CEFTRIAXONE 1 GM in DEXTROSE 5%-WATER - 50 ML IVPB SCH (10:00)
[2021-11-15] MEDS: DOXYCYCLINE INJECTION 100 MG in DEXTROSE 5%-WATER 100 ML IVPB SCH ×2 (10:09→21:23)
[2021-11-15 12:31] LABS: BASO % 0.5 % (0-2.0); HEMATOCRIT 38.3 % (35.4-49); HEMOGLOBIN 13.3 GM/dL (11.7-16.9); LYMPH % 30.2 % (8-40); MCH 29.7 pg (25.7-33.7); MCHC 34.6 g/dl (32.0-35.9); MEAN CELL VOLUME 85.7 fl (80-96); MEAN PLT VOLUME 10.5 fl (7.5-11.1); MONO % 7.2 % (3.8-10.2); NEUT % 62.1 % (42.8-82.8); PLATELET COUNT 183 10^3/uL (134-434); RBC 4.47 M/mm3 (4.00-5.60); RDW 14.2 % (11.9-15.9); WHITE BLOOD COUNT 8.2 K/mm3 (4.0-10.0)
[2021-11-15 13:05] LABS: CALCIUM 9.4 mg/dL (8.5-10.1)
[2021-11-15 13:06] LABS: ALBUMIN 3.4 g/dl (3.4-5.0); BLOOD UREA NITROGEN 8.1 mg/dL (7-18); MAGNESIUM 2.2 mg/dL (1.8-2.4)
[2021-11-15 13:09] LABS: CREATININE 1.1 mg/dL (0.55-1.3); PHOSPHOROUS 1.7 mg/dL (2.5-4.9)
[2021-11-15 13:10] LABS: TOT PROT 6.5 g/dl (6.4-8.2)
[2021-11-15 13:11] LABS: BILIRUBIN,TOTAL 0.6 mg/dL (0.2-1)
[2021-11-15] MEDS ORDERED: POTASSIUM CHLORIDE TABS 20 MEQ TABLET.ER (FP) PO ONE (17:49)
[2021-11-15] MEDS: SODIUM CHLORIDE 0.45% 1,000 ML IV SCH ×2 (18:04→20:19)
[2021-11-15] MEDS: ATORVASTATIN CA 40 MG TABLET (FP) PO SCH (21:22)
[2021-11-16 01:04] VITALS: RESP 18
[2021-11-16] MEDS: DIVALPROEX SODIUM 250 MG TABLET E.C. PO SCH ×3 (06:17→21:24)
[2021-11-16] MEDS: INSULIN (LEVEMIR) 100 UNITS/ML UNITS SQ SCH ×2 (06:17→21:24)
[2021-11-16] MEDS: HEPARIN NA (PORCINE) 5,000 UNITS/ML 1ML VIAL SQ SCH ×3 (06:17→21:24)
[2021-11-16] MEDS: INSULIN (NOVOLOG) ASPART 100 UNITS/ML 10ML VIAL SQ SCH ×3 (06:18→16:28)
[2021-11-16] MEDS: INSULIN SLIDING SCALE (NOVOLOG) 1 VIAL SQ SCH ×4 (06:18→21:25)
[2021-11-16] MEDS: SODIUM CHLORIDE 0.45% 1,000 ML IV SCH (10:56)
[2021-11-16 12:59] LABS: BASO % 0.5 % (0-2.0); HEMATOCRIT 38.7 % (35.4-49); HEMOGLOBIN 13.5 GM/dL (11.7-16.9); LYMPH % 46.5 % (8-40); MCH 30.7 pg (25.7-33.7); MCHC 34.9 g/dl (32.0-35.9); MEAN PLT VOLUME 10.2 fl (7.5-11.1); MONO % 8.5 % (3.8-10.2); NEUT % 43.5 % (42.8-82.8); PLATELET COUNT 155 10^3/uL (134-434); RDW 13.9 % (11.9-15.9); WHITE BLOOD COUNT 4.9 K/mm3 (4.0-10.0)
[2021-11-16 13:26] LABS: CALCIUM 9.3 mg/dL (8.5-10.1)
[2021-11-16 13:27] LABS: ALBUMIN 3.2 g/dl (3.4-5.0); BLOOD UREA NITROGEN 9.7 mg/dL (7-18); MAGNESIUM 2.2 mg/dL (1.8-2.4)
[2021-11-16 13:30] LABS: CREATININE 0.9 mg/dL (0.55-1.3)
[2021-11-16 13:32] LABS: TOT PROT 6.6 g/dl (6.4-8.2)
[2021-11-16] MEDS: ATORVASTATIN CA 40 MG TABLET (FP) PO SCH (21:23)
[2021-11-17] MEDS: DIVALPROEX SODIUM 250 MG TABLET E.C. PO SCH ×2 (06:22→13:56)
[2021-11-17] MEDS: HEPARIN NA (PORCINE) 5,000 UNITS/ML 1ML VIAL SQ SCH ×2 (06:23→13:56)
[2021-11-17] MEDS: INSULIN (LEVEMIR) 100 UNITS/ML UNITS SQ SCH (06:23)
[2021-11-17] MEDS: INSULIN (NOVOLOG) ASPART 100 UNITS/ML 10ML VIAL SQ SCH ×2 (06:23→12:39)
[2021-11-17] MEDS: INSULIN SLIDING SCALE (NOVOLOG) 1 VIAL SQ SCH ×2 (06:25→11:09)
[2021-11-17 09:49] LABS: BASO % 0.7 % (0-2.0); EOS % 4.1 % (0-4.5); HEMATOCRIT 37.8 % (35.4-49); HEMOGLOBIN 12.8 GM/dL (11.7-16.9); LYMPH % 57.4 % (8-40); MCH 29.5 pg (25.7-33.7); MEAN CELL VOLUME 86.8 fl (80-96); MEAN PLT VOLUME 10.8 fl (7.5-11.1); MONO % 7.2 % (3.8-10.2); NEUT % 30.6 % (42.8-82.8); PLATELET COUNT 153 10^3/uL (134-434); RBC 4.35 M/mm3 (4.00-5.60); RDW 13.9 % (11.9-15.9); WHITE BLOOD COUNT 4.5 K/mm3 (4.0-10.0)
[2021-11-17 10:38] LABS: ALBUMIN 3.1 g/dl (3.4-5.0)
[2021-11-17 10:41] LABS: CREATININE 0.9 mg/dL (0.55-1.3)
[2021-11-17 10:43] LABS: BILIRUBIN,TOTAL 0.6 mg/dL (0.2-1); TOT PROT 5.9 g/dl (6.4-8.2)
[2021-11-17 10:48] LABS: BLOOD UREA NITROGEN 16.2 mg/dL (7-18); MAGNESIUM 2.2 mg/dL (1.8-2.4)
[2021-11-17] MEDS ORDERED: POTASSIUM CHLORIDE TABS 20 MEQ TABLET.ER (FP) PO ONE (13:14)
[2021-11-17 14:34] VITALS: BP 145/86; PULSE 73; TEMP 98.4
== END 2021-11-17 14:55 | disposition home health service (06) | DRG 420 ==
LOC: JER 11:12 → JERBED 14:21 → JICU 19:07 → J5S 11-14 21:42
PROVIDERS: ADMIT Internal Medicine Pulmonary Disease; ATTEND Nurse Practitioner Acute Care
DX: E11.10 Type 2 diabetes mellitus with ketoacidosis without coma (principal); N17.9 Acute kidney failure, unspecified; G40.909 Epilepsy, unspecified, not intractable, without status epilepticus; D72.829 Elevated white blood cell count, unspecified; F19.20 Other psychoactive substance dependence, uncomplicated; E86.0 Dehydration
CPT/HCPCS: 0241U-QW; 36415; 36600; 71045-TC-FY; 80048; 80053; 80307; 81003; 82010; 82803; 82962; 83036; 83605; 83735; 83930; 84100; 84484; 85025; 87040; 87086; 87899; 93005; 93010; 99291; J1644

== ENCOUNTER 2021-11-25 09:55 | Inpatient (IN) | payer OTHER ==
[2021-11-25] MEDS ORDERED: ONDANSETRON 4 MG/2 ML VIAL IVPUSH ONE (10:08)
[2021-11-25] MEDS ORDERED: LACTATED RINGERS SOLUTION 1000 ML INFUS.BAG IV ONE (10:11)
[2021-11-25] MEDS ORDERED: ONDANSETRON 4 MG/2 ML VIAL ONE (10:22)
[2021-11-25 10:55] LABS: VENOUS BASE EXCESS -12.2 mmol/L (-2-2); VENOUS PCO2 32.9 mmHg (38-52); VENOUS PH 7.243 (7.310-7.410)
[2021-11-25 10:56] LABS: BASO % 0.3 % (0-2.0); HEMATOCRIT 45.5 % (35.4-49); HEMOGLOBIN 15.7 GM/dL (11.7-16.9); LYMPH % 24.5 % (8-40); MCH 30.8 pg (25.7-33.7); MCHC 34.5 g/dl (32.0-35.9); MEAN CELL VOLUME 89.1 fl (80-96); MEAN PLT VOLUME 9.7 fl (7.5-11.1); MONO % 6.7 % (3.8-10.2); NEUT % 68.5 % (42.8-82.8); PLATELET COUNT 384 10^3/uL (134-434); RBC 5.11 M/mm3 (4.00-5.60)
[2021-11-25 11:02] LABS: INR 0.94 (0.83-1.09); PROTHROMBIN TIME (PATIENT) 10.8 SEC (9.7-13.0)
[2021-11-25 11:04] LABS: ACTIVATED PTT 31.7 SECONDS (25.2-36.5)
[2021-11-25 11:12] LABS: CHLORIDE 102 mmol/L (98-107); SODIUM 140 mmol/L (136-145)
[2021-11-25 11:14] LABS: MAGNESIUM 2.4 mg/dL (1.8-2.4)
[2021-11-25 11:15] LABS: ANION GAP 22 MMOL/L (8-16); BLOOD UREA NITROGEN 26.3 mg/dL (7-18); CALCIUM 10.2 mg/dL (8.5-10.1); CO2 15 mmol/L (21-32); GLUCOSE,RANDOM 232 mg/dL (74-106); LIPASE 628 U/L (73-393)
[2021-11-25 11:17] LABS: CREATININE 1.7 mg/dL (0.55-1.3); SGOT/AST 13 U/L (15-37); SGPT/ALT 75 U/L (13-61)
[2021-11-25 11:20] LABS: BILIRUBIN,TOTAL 0.6 mg/dL (0.2-1)
[2021-11-25 11:24] LABS: ALBUMIN 4.6 g/dl (3.4-5.0); ALK PHOS 119 U/L (45-117); TOT PROT 8.2 g/dl (6.4-8.2)
[2021-11-25] MEDS ORDERED: SODIUM CHLORIDE 1,000 ML IV STA (11:29)
[2021-11-25] MEDS ORDERED: INSULIN REGULAR HUMAN 100 UNITS/ML *VIAL* (FOR IVP) IVPUSH ONE (11:31)
[2021-11-25] MEDS ORDERED: INSULIN REGULAR 100 UNITS in SODIUM CHLORIDE 99 ML IVPB SCH (11:45)
[2021-11-25] MEDS: DEXTROSE 5%-0.45% SALINE 1,000 ML IV SCH (12:32)
[2021-11-25] MEDS: INSULIN REGULAR 100 UNITS in SODIUM CHLORIDE 99 ML IVPB SCH (12:46)
[2021-11-25 14:04] VITALS: BMI 28.3
[2021-11-25 15:37] LABS: EPI CELLS 4 /uL (0-25.1); HYALINE CASTS 3 /uL (0-3.1); PH,URINE 5.5 (5.0-8.0); URINE APPEARANCE CLEAR; URINE BACTERIA 3 /uL (0-1359); URINE BILIRUBIN NEGATIVE (NEGATIVE); URINE COLOR YELLOW; URINE GLUCOSE (UA) 2+ (NEGATIVE); URINE KETONE 4+ (NEGATIVE); URINE LEUK ESTERASE NEGATIVE (NEGATIVE); URINE NITRITE NEGATIVE (NEGATIVE); URINE PROTEIN 2+ (NEGATIVE); URINE RBC 3 /uL (0-23.9); URINE WBC 3 /uL (0-25.8)
[2021-11-25 15:39] LABS: COCAINE, UR NEGATIVE (NEGATIVE); OPIATES, URI NEGATIVE (NEGATIVE); PHENCYCLIDINE,URINE NEGATIVE (NEGATIVE); URINE BARBITURATES NEGATIVE (NEGATIVE); URINE BENZODIAZEPINES NEGATIVE (NEGATIVE)
[2021-11-25 15:40] LABS: METHADONE, UR NEGATIVE (NEGATIVE); URINE AMPHETAMINES NEGATIVE (NEGATIVE)
[2021-11-25] MEDS ORDERED: ONDANSETRON 4 MG/2 ML VIAL IVPUSH STA (20:12)
[2021-11-25 20:37] LABS: CALCIUM 9.3 mg/dL (8.5-10.1)
[2021-11-25 20:38] LABS: BLOOD UREA NITROGEN 16.7 mg/dL (7-18); MAGNESIUM 2.2 mg/dL (1.8-2.4)
[2021-11-25] MEDS ORDERED: POTASSIUM PHOSPHATE 30 MM in DEXTROSE 5%-WATER - 250 ML IVPB ONE (20:38)
[2021-11-25 20:41] LABS: CREATININE 1.4 mg/dL (0.55-1.3); PHOSPHOROUS 2.1 mg/dL (2.5-4.9)
[2021-11-25] MEDS ORDERED: LACTATED RINGERS SOLUTION 1,000 ML/1,000 ML INFUS.BAG IV STA (21:17)
[2021-11-25] MEDS: DIVALPROEX SODIUM 250 MG TABLET E.C. PO SCH (23:05)
[2021-11-26] MEDS: DEXTROSE 5%-0.45% SALINE 1,000 ML IV SCH ×3 (02:42→13:48)
[2021-11-26] MEDS: DIVALPROEX SODIUM 250 MG TABLET E.C. PO SCH ×3 (05:11→21:28)
[2021-11-26 07:02] LABS: HEMATOCRIT 38.3 % (35.4-49); HEMOGLOBIN 13.6 GM/dL (11.7-16.9); MCH 31.1 pg (25.7-33.7); MCHC 35.4 g/dl (32.0-35.9); MEAN CELL VOLUME 87.7 fl (80-96); MEAN PLT VOLUME 9.6 fl (7.5-11.1); PLATELET COUNT 333 10^3/uL (134-434); RBC 4.37 M/mm3 (4.00-5.60); RDW 14.6 % (11.9-15.9); WHITE BLOOD COUNT 7.7 K/mm3 (4.0-10.0)
[2021-11-26 07:26] LABS: BLOOD UREA NITROGEN 12.9 mg/dL (7-18); CALCIUM 8.9 mg/dL (8.5-10.1)
[2021-11-26 07:27] LABS: MAGNESIUM 2.2 mg/dL (1.8-2.4)
[2021-11-26 07:29] LABS: PHOSPHOROUS 3.2 mg/dL (2.5-4.9)
[2021-11-26 07:30] LABS: CREATININE 1.1 mg/dL (0.55-1.3)
[2021-11-26] MEDS ORDERED: DIVALPROEX NA *ER* EXTEND REL 250 MG TABLET.SA PO SCH (08:00)
[2021-11-26] MEDS: FOLIC ACID 1 MG TABLET (FP) PO SCH (10:21)
[2021-11-26] MEDS: INSULIN (LEVEMIR) 100 UNITS/ML UNITS SQ SCH ×2 (13:48→21:28)
[2021-11-26] MEDS: INSULIN REGULAR 100 UNITS in SODIUM CHLORIDE 99 ML IVPB SCH (13:49)
[2021-11-26] MEDS: INSULIN SLIDING SCALE (NOVOLOG) 1 VIAL SQ SCH ×3 (19:05→21:33)
[2021-11-26] MEDS: ATORVASTATIN CA 40 MG TABLET (FP) PO SCH (21:28)
[2021-11-27] MEDS: DIVALPROEX SODIUM 250 MG TABLET E.C. PO SCH ×3 (06:35→22:48)
[2021-11-27] MEDS: INSULIN (LEVEMIR) 100 UNITS/ML UNITS SQ SCH ×2 (06:35→22:48)
[2021-11-27] MEDS: INSULIN SLIDING SCALE (NOVOLOG) 1 VIAL SQ SCH ×4 (06:36→22:45)
[2021-11-27 07:37] LABS: BASO % 0.3 % (0-2.0); HEMOGLOBIN 13.2 GM/dL (11.7-16.9); LYMPH % 50.2 % (8-40); MCH 30.5 pg (25.7-33.7); MCHC 34.7 g/dl (32.0-35.9); MEAN PLT VOLUME 8.9 fl (7.5-11.1); MONO % 10.4 % (3.8-10.2); NEUT % 38.1 % (42.8-82.8); PLATELET COUNT 283 10^3/uL (134-434); RBC 4.32 M/mm3 (4.00-5.60); RDW 14.3 % (11.9-15.9); WHITE BLOOD COUNT 6.1 K/mm3 (4.0-10.0)
[2021-11-27 08:24] LABS: BLOOD UREA NITROGEN 7.6 mg/dL (7-18); CALCIUM 9.1 mg/dL (8.5-10.1); MAGNESIUM 2.1 mg/dL (1.8-2.4)
[2021-11-27 08:26] LABS: CREATININE 0.8 mg/dL (0.55-1.3)
[2021-11-27 08:27] LABS: BILIRUBIN,TOTAL 0.5 mg/dL (0.2-1)
[2021-11-27 08:31] LABS: ALBUMIN 3.3 g/dl (3.4-5.0); TOT PROT 5.9 g/dl (6.4-8.2)
[2021-11-27] MEDS ORDERED: POTASSIUM CHLORIDE TABS 20 MEQ TABLET.ER (FP) PO ONE (10:05)
[2021-11-27] MEDS: FOLIC ACID 1 MG TABLET (FP) PO SCH (10:32)
[2021-11-27 20:37] VITALS: RESP 18
[2021-11-27] MEDS: ATORVASTATIN CA 40 MG TABLET (FP) PO SCH (22:48)
[2021-11-28] MEDS: DIVALPROEX SODIUM 250 MG TABLET E.C. PO SCH ×2 (05:36→13:56)
[2021-11-28] MEDS: INSULIN SLIDING SCALE (NOVOLOG) 1 VIAL SQ SCH ×3 (06:45→16:51)
[2021-11-28] MEDS: INSULIN (LEVEMIR) 100 UNITS/ML UNITS SQ SCH (06:46)
[2021-11-28] MEDS: FOLIC ACID 1 MG TABLET (FP) PO SCH (09:46)
[2021-11-28 10:23] LABS: BASO % 0.5 % (0-2.0); EOS % 1.5 % (0-4.5); HEMATOCRIT 36.6 % (35.4-49); HEMOGLOBIN 12.8 GM/dL (11.7-16.9); LYMPH % 48.7 % (8-40); MCH 31.1 pg (25.7-33.7); MCHC 35.1 g/dl (32.0-35.9); MEAN CELL VOLUME 88.7 fl (80-96); MEAN PLT VOLUME 9.2 fl (7.5-11.1); MONO % 8.9 % (3.8-10.2); NEUT % 40.4 % (42.8-82.8); PLATELET COUNT 222 10^3/uL (134-434); RBC 4.12 M/mm3 (4.00-5.60); RDW 14.3 % (11.9-15.9); WHITE BLOOD COUNT 4.9 K/mm3 (4.0-10.0)
[2021-11-28 10:36] LABS: BLOOD UREA NITROGEN 12.8 mg/dL (7-18); MAGNESIUM 2.3 mg/dL (1.8-2.4)
[2021-11-28 10:39] LABS: PHOSPHOROUS 3.4 mg/dL (2.5-4.9)
[2021-11-28 10:40] LABS: CREATININE 0.8 mg/dL (0.55-1.3)
[2021-11-28 10:41] LABS: BILIRUBIN,TOTAL 0.4 mg/dL (0.2-1); TOT PROT 5.8 g/dl (6.4-8.2)
[2021-11-28 15:21] VITALS: BP 118/66; PULSE 73; TEMP 98.6
== END 2021-11-28 18:34 | disposition left against medical advice (07) | DRG 420 ==
LOC: JER 09:55 → JERBED 11:35 → JICU 13:04 → J5S 11-27 21:21
PROVIDERS: ADMIT Internal Medicine Pulmonary Disease; ATTEND Internal Medicine
DX: E11.10 Type 2 diabetes mellitus with ketoacidosis without coma (principal); N17.9 Acute kidney failure, unspecified; F10.10 Alcohol abuse, uncomplicated; F17.210 Nicotine dependence, cigarettes, uncomplicated; G40.909 Epilepsy, unspecified, not intractable, without status epilepticus
CPT/HCPCS: 0241U-QW; 36415; 70450-TC; 71045-TC-FY; 72125-TC; 80048; 80053; 80164; 80307; 81003; 82010; 82550; 82803; 82962; 83605; 83690; 83735; 84100; 84484; 85025; 85027; 85610; 85730; 87086; 93005; 93010; 99285-25

== ENCOUNTER 2022-03-24 20:03 | Inpatient (IN) | payer OTHER ==
[2022-03-24] MEDS ORDERED: LACTATED RINGERS SOLUTION 1,000 ML IV STA (20:12)
[2022-03-24 21:16] LABS: BASO % 0.7 % (0-2.0); EOS % 0.3 % (0-4.5); HEMATOCRIT 46.9 % (35.4-49); HEMOGLOBIN 15.4 GM/dL (11.7-16.9); LYMPH % 22.6 % (8-40); MCH 29.1 pg (25.7-33.7); MCHC 32.8 g/dl (32.0-35.9); MEAN CELL VOLUME 88.7 fl (80-96); MEAN PLT VOLUME 11.3 fl (7.5-11.1); MONO % 5.9 % (3.8-10.2); NEUT % 70.5 % (42.8-82.8); PLATELET COUNT 213 10^3/uL (134-434); RBC 5.28 M/mm3 (4.00-5.60); WHITE BLOOD COUNT 6.3 K/mm3 (4.0-10.0)
[2022-03-24 21:21] LABS: INR 0.97 (0.83-1.09); PROTHROMBIN TIME (PATIENT) 11.1 SEC (9.7-13.0)
[2022-03-24 21:24] LABS: ACTIVATED PTT 30.9 SECONDS (25.2-36.5)
[2022-03-24 21:27] LABS: VENOUS BASE EXCESS -6.6 mmol/L (-2-2); VENOUS O2 SATURATION 46.2 % (70-80); VENOUS PCO2 42.5 mmHg (38-52); VENOUS PH 7.286 (7.310-7.410)
[2022-03-24 21:36] LABS: CALCIUM 10.4 mg/dL (8.5-10.1)
[2022-03-24 21:37] LABS: ALBUMIN 4.7 g/dl (3.4-5.0); BLOOD UREA NITROGEN 18.3 mg/dL (7-18)
[2022-03-24 21:40] LABS: CREATININE 1.5 mg/dL (0.55-1.3)
[2022-03-24 21:41] LABS: BILIRUBIN,TOTAL 1.1 mg/dL (0.2-1)
[2022-03-24] MEDS ORDERED: INSULIN REGULAR HUMAN 100 UNITS/ML *VIAL IVPUSH ONE (21:51)
[2022-03-24] MEDS ORDERED: LACTATED RINGERS SOLUTION 1000 ML INFUS.BAG IV ONE (21:51)
[2022-03-24] MEDS ORDERED: INSULIN REGULAR HUMAN 100 UNITS/ML *VIAL ONE (22:13)
[2022-03-24 23:01] LABS: VENOUS BASE EXCESS -9.2 mmol/L (-2-2); VENOUS O2 SATURATION 83.5 % (70-80); VENOUS PCO2 37.7 mmHg (38-52); VENOUS PH 7.27 (7.310-7.410)
[2022-03-24 23:30] LABS: CALCIUM 9.2 mg/dL (8.5-10.1)
[2022-03-24 23:31] LABS: BLOOD UREA NITROGEN 15.5 mg/dL (7-18)
[2022-03-24] MEDS ORDERED: DEXTROSE 50%-WATER - 25 GM/50 ML VIAL IVPUSH PRN (23:31)
[2022-03-24 23:34] LABS: CREATININE 1.2 mg/dL (0.55-1.3)
[2022-03-24] MEDS ORDERED: INSULIN REGULAR 100 UNITS in SODIUM CHLORIDE 99 ML IVPB SCH (23:45)
[2022-03-25 01:57] LABS: PH,URINE 5.5 (5.0-8.0); URINE APPEARANCE CLEAR; URINE BILIRUBIN NEGATIVE (NEGATIVE); URINE COLOR YELLOW; URINE GLUCOSE (UA) 3+ (NEGATIVE); URINE KETONE 4+ (NEGATIVE); URINE LEUK ESTERASE NEGATIVE (NEGATIVE); URINE NITRITE NEGATIVE (NEGATIVE); URINE PROTEIN TRACE (NEGATIVE); URINE UROBILINOGEN 0.2 mg/dL (0.2-1.0)
[2022-03-25] MEDS ORDERED: LACTATED RINGERS SOLUTION 1000 ML INFUS.BAG IV STA (03:50)
[2022-03-25] MEDS ORDERED: ONDANSETRON 4 MG/2 ML VIAL IVPUSH PRN (04:06)
[2022-03-25] MEDS ORDERED: ACETAMINOPHEN 1000 MG/100 ML BAG IVPB PRN (04:14)
[2022-03-25] MEDS ORDERED: D5-NS + 20 MEQ KCL - 20 MEQ/1,000 ML INFUS.BAG IV SCH (05:00)
[2022-03-25] MEDS ORDERED: FOLIC ACID INJECTION - 1 MG, THIAMINE HCL 100 MG, MULTIVIT INJECTION ADULT 10 ML in SOD... IVPB ONE (06:00)
[2022-03-25] MEDS ORDERED: VALPROATE SODIUM 500 MG/5 ML VIAL IVPB SCH (06:00)
[2022-03-25] MEDS ORDERED: DEXTROSE 50%-WATER 25 GM/50 ML DISP.SYRIN ONE (06:28)
[2022-03-25 06:52] LABS: BLOOD UREA NITROGEN 13.1 mg/dL (7-18)
[2022-03-25 06:55] LABS: PHOSPHOROUS 2.4 mg/dL (2.5-4.9)
[2022-03-25] MEDS ORDERED: D5-1/2NS+10 MEQ KCL - 10 MEQ/1,000 ML INFUS.BAG IV SCH (07:00)
[2022-03-25] MEDS ORDERED: INSULIN (LEVEMIR) 100 UNITS/ML UNITS SQ STA (09:29)
[2022-03-25] MEDS ORDERED: PANTOPRAZOLE SODIUM 40 MG VIAL IVPUSH SCH (10:00)
[2022-03-25] MEDS ORDERED: VALPROATE SODIUM INJECTION 250 MG in SODIUM CHLORIDE 100 ML IVPB SCH (10:00)
[2022-03-25] MEDS ORDERED: THIAMINE HCL 200 MG/2 ML VIAL IVPB SCH (10:00)
[2022-03-25] MEDS: DIVALPROEX SODIUM 250 MG TABLET E.C. PO SCH ×2 (15:00→21:41)
[2022-03-25] MEDS: INSULIN SLIDING SCALE (NOVOLOG) 1 VIAL SQ SCH ×2 (16:32→21:42)
[2022-03-25 20:34] LABS: CALCIUM 8.6 mg/dL (8.5-10.1)
[2022-03-25 20:35] LABS: BLOOD UREA NITROGEN 7.6 mg/dL (7-18); MAGNESIUM 1.7 mg/dL (1.8-2.4)
[2022-03-25 20:38] LABS: PHOSPHOROUS 3.3 mg/dL (2.5-4.9)
[2022-03-25] MEDS: ATORVASTATIN CA 40 MG TABLET (FP) PO SCH (21:42)
[2022-03-25] MEDS ORDERED: INSULIN (LEVEMIR) 100 UNITS/ML UNITS SQ SCH ×2 (22:00)
[2022-03-26] MEDS: DIVALPROEX SODIUM 250 MG TABLET E.C. PO SCH ×3 (06:48→23:34)
[2022-03-26] MEDS: INSULIN SLIDING SCALE (NOVOLOG) 1 VIAL SQ SCH ×3 (06:49→16:20)
[2022-03-26 08:08] LABS: CHLORIDE 108 mmol/L (98-107); SODIUM 145 mmol/L (136-145)
[2022-03-26 08:10] LABS: ANION GAP 12 MMOL/L (8-16); BLOOD UREA NITROGEN 7.6 mg/dL (7-18); CALCIUM 9.1 mg/dL (8.5-10.1); CO2 25 mmol/L (21-32); MAGNESIUM 1.8 mg/dL (1.8-2.4)
[2022-03-26 08:13] LABS: PHOSPHOROUS 4.2 mg/dL (2.5-4.9)
[2022-03-26 08:14] LABS: CREATININE 0.8 mg/dL (0.55-1.3)
[2022-03-26 08:37] LABS: GLUCOSE,RANDOM 41 mg/dL (74-106)
[2022-03-26] MEDS ORDERED: DEXTROSE 50%-WATER - 25 GM/50 ML VIAL IVPUSH ONE (09:09)
[2022-03-26] MEDS ORDERED: INSULIN (LEVEMIR) 100 UNITS/ML UNITS SQ SCH (09:17)
[2022-03-26] MEDS: INSULIN (LEVEMIR) 100 UNITS/ML UNITS SQ SCH (09:57)
[2022-03-26] MEDS ORDERED: MULTIVITAMINS (DAILY MVI) TABLET (FP) PO SCH (10:00)
[2022-03-26] MEDS ORDERED: ENOXAPARIN NA (PORCINE) 40 MG/0.4 ML DISP.SYRIN SQ SCH (10:00)
[2022-03-26] MEDS ORDERED: FOLIC ACID 1 MG TABLET (FP) PO SCH (10:00)
[2022-03-26 14:35] VITALS: BMI 25.8
[2022-03-26] MEDS ORDERED: LORazepam 2 MG/ML SDV VIAL IVPUSH ONE (20:06)
[2022-03-26] MEDS ORDERED: LORazepam 2 MG/ML SDV VIAL IM ONE (20:11)
[2022-03-26] MEDS: INSULIN (NOVOLOG) ASPART 100 UNITS/ML 10ML VIAL SQ SCH (23:33)
[2022-03-26] MEDS: ATORVASTATIN CA 40 MG TABLET (FP) PO SCH (23:33)
[2022-03-27] MEDS: INSULIN (NOVOLOG) ASPART 100 UNITS/ML 10ML VIAL SQ SCH ×4 (08:46→17:55)
[2022-03-27] MEDS ORDERED: ONDANSETRON 4 MG/2 ML VIAL IVPUSH PRN (08:51)
[2022-03-27] MEDS: INSULIN (LEVEMIR) 100 UNITS/ML UNITS SQ SCH (09:09)
[2022-03-27] MEDS: DIVALPROEX SODIUM 250 MG TABLET E.C. PO SCH ×3 (09:09→21:11)
[2022-03-27 09:59] LABS: BASO % 0.4 % (0-2.0); EOS % 4.1 % (0-4.5); HEMATOCRIT 38.7 % (35.4-49); HEMOGLOBIN 12.9 GM/dL (11.7-16.9); LYMPH % 49.7 % (8-40); MCH 29.6 pg (25.7-33.7); MCHC 33.3 g/dl (32.0-35.9); MEAN CELL VOLUME 88.9 fl (80-96); MEAN PLT VOLUME 10.7 fl (7.5-11.1); MONO % 9.6 % (3.8-10.2); NEUT % 36.2 % (42.8-82.8); PLATELET COUNT 145 10^3/uL (134-434); RBC 4.36 M/mm3 (4.00-5.60); RDW 13.2 % (11.9-15.9); WHITE BLOOD COUNT 4.8 K/mm3 (4.0-10.0)
[2022-03-27 10:29] LABS: CALCIUM 9.2 mg/dL (8.5-10.1)
[2022-03-27 10:30] LABS: BLOOD UREA NITROGEN 8.9 mg/dL (7-18); MAGNESIUM 1.9 mg/dL (1.8-2.4)
[2022-03-27 10:33] LABS: CREATININE 0.6 mg/dL (0.55-1.3); PHOSPHOROUS 4.9 mg/dL (2.5-4.9)
[2022-03-27 10:35] LABS: BILIRUBIN,TOTAL 0.5 mg/dL (0.2-1)
[2022-03-27 10:36] LABS: ALBUMIN 3.2 g/dl (3.4-5.0); TOT PROT 5.9 g/dl (6.4-8.2)
[2022-03-27] MEDS: ENOXAPARIN NA (PORCINE) 40 MG/0.4 ML DISP.SYRIN SQ SCH (12:04)
[2022-03-27] MEDS: MULTIVITAMINS (DAILY MVI) TABLET (FP) PO SCH (12:07)
[2022-03-27] MEDS: FOLIC ACID 1 MG TABLET (FP) PO SCH (12:07)
[2022-03-27] MEDS ORDERED: INSULIN (LEVEMIR) 100 UNITS/ML UNITS SQ ONE (17:38)
[2022-03-27] MEDS ORDERED: INSULIN (NOVOLOG) ASPART 100 UNITS/ML 10ML VIAL ONE (17:46)
[2022-03-27] MEDS ORDERED: INSULIN SLIDING SCALE (NOVOLOG) 1 VIAL SQ SCH (22:00)
[2022-03-27] MEDS ORDERED: ATORVASTATIN CA 40 MG TABLET (FP) PO SCH (22:00)
[2022-03-27] MEDS ORDERED: INSULIN (LEVEMIR) 100 UNITS/ML UNITS SQ SCH (22:00)
[2022-03-28] MEDS: DIVALPROEX SODIUM 250 MG TABLET E.C. PO SCH (06:21)
[2022-03-28] MEDS: INSULIN (NOVOLOG) ASPART 100 UNITS/ML 10ML VIAL SQ SCH ×2 (06:22→12:23)
[2022-03-28] MEDS ORDERED: INSULIN (LEVEMIR) 100 UNITS/ML UNITS SQ SCH (07:00)
[2022-03-28 07:02] VITALS: BP 117/71; PULSE 68; RESP 20; TEMP 97.8
[2022-03-28] MEDS: FOLIC ACID 1 MG TABLET (FP) PO SCH (10:00)
[2022-03-28] MEDS: ENOXAPARIN NA (PORCINE) 40 MG/0.4 ML DISP.SYRIN SQ SCH (10:01)
[2022-03-28] MEDS: MULTIVITAMINS (DAILY MVI) TABLET (FP) PO SCH (10:01)
== END 2022-03-28 12:39 | disposition home or self-care (01) | DRG 420 ==
LOC: JER 20:03 → JERBED 21:54 → JICU 03-25 01:52 → J8W 03-26 19:13
PROVIDERS: ADMIT Internal Medicine Pulmonary Disease; ATTEND Nurse Practitioner Family
DX: E11.10 Type 2 diabetes mellitus with ketoacidosis without coma (principal); N17.9 Acute kidney failure, unspecified; R56.9 Unspecified convulsions; E78.5 Hyperlipidemia, unspecified
CPT/HCPCS: 0241U-QW; 36415; 71045-TC-FY; 80048; 80053; 80164; 81003; 82010; 82803; 82962; 83605; 83735; 84100; 85025; 85610; 85730; 87086; 93005; 93010; 99291

== ENCOUNTER 2022-05-05 11:50 | Inpatient (IN) | payer OTHER ==
[2022-05-05 12:10] VITALS: BMI 25.0
[2022-05-05] MEDS ORDERED: DIVALPROEX NA *ER* EXTEND REL 250 MG TABLET.SA PO ONE (12:15)
[2022-05-05] MEDS ORDERED: DIVALPROEX SODIUM 125 MG TABLET E.C. ONE (12:42)
[2022-05-05 12:52] LABS: BASO % 0.5 % (0-2.0); HEMATOCRIT 43.4 % (35.4-49); HEMOGLOBIN 14.2 GM/dL (11.7-16.9); LYMPH % 10.9 % (8-40); MCH 29.8 pg (25.7-33.7); MCHC 32.7 g/dl (32.0-35.9); MEAN CELL VOLUME 91.2 fl (80-96); MEAN PLT VOLUME 10.9 fl (7.5-11.1); MONO % 2.7 % (3.8-10.2); NEUT % 85.9 % (42.8-82.8); PLATELET COUNT 204 10^3/uL (134-434); RBC 4.76 M/mm3 (4.00-5.60); RDW 13.5 % (11.9-15.9); WHITE BLOOD COUNT 14.4 K/mm3 (4.0-10.0)
[2022-05-05 12:57] LABS: PH,URINE 5.5 (5.0-8.0); URINE APPEARANCE CLEAR; URINE BILIRUBIN NEGATIVE (NEGATIVE); URINE COLOR YELLOW; URINE GLUCOSE (UA) 3+ (NEGATIVE); URINE KETONE 4+ (NEGATIVE); URINE LEUK ESTERASE NEGATIVE (NEGATIVE); URINE NITRITE NEGATIVE (NEGATIVE); URINE PROTEIN NEGATIVE (NEGATIVE); URINE UROBILINOGEN 0.2 mg/dL (0.2-1.0)
[2022-05-05 13:14] LABS: INR 1.08 (0.83-1.09); PROTHROMBIN TIME (PATIENT) 12.5 SEC (9.7-13.0)
[2022-05-05 13:16] LABS: ACTIVATED PTT 29.9 SECONDS (25.2-36.5)
[2022-05-05 13:22] LABS: VENOUS BASE EXCESS -17.8 mmol/L (-2-2); VENOUS O2 SATURATION 84.7 % (70-80); VENOUS PCO2 24.1 mmHg (38-52)
[2022-05-05 13:24] LABS: VENOUS PH 7.176 (7.310-7.410)
[2022-05-05 13:53] LABS: CHLORIDE 96 mmol/L (98-107); SODIUM 129 mmol/L (136-145)
[2022-05-05 13:56] LABS: CALCIUM 9.5 mg/dL (8.5-10.1)
[2022-05-05 13:57] LABS: ALBUMIN 4.4 g/dl (3.4-5.0); ANION GAP 25 MMOL/L (8-16); CO2 9 mmol/L (21-32)
[2022-05-05 14:00] LABS: CREATININE 1.6 mg/dL (0.55-1.3); SGOT/AST 11 U/L (15-37); SGPT/ALT 33 U/L (13-61)
[2022-05-05 14:01] LABS: TOT PROT 7.5 g/dl (6.4-8.2)
[2022-05-05 14:02] LABS: BILIRUBIN,TOTAL 1.3 mg/dL (0.2-1)
[2022-05-05 14:03] LABS: ALK PHOS 69 U/L (45-117)
[2022-05-05 14:14] LABS: GLUCOSE,RANDOM 472 mg/dL (74-106)
[2022-05-05] MEDS ORDERED: INSULIN REGULAR HUMAN 100 UNITS/ML *VIAL IVPUSH ONE (14:19)
[2022-05-05] MEDS ORDERED: INSULIN REGULAR HUMAN 100 UNITS/ML *VIAL* (FOR IVP) IVPUSH ONE (14:20)
[2022-05-05] MEDS ORDERED: SODIUM CHLORIDE 1,000 ML with POTASSIUM CHLORIDE 40 MEQ IV SCH (14:30)
[2022-05-05] MEDS ORDERED: SODIUM CHLORIDE 0.9% 500 ML INFUS.BAG IV ONE (14:30)
[2022-05-05] MEDS ORDERED: INSULIN REGULAR 100 UNITS in SODIUM CHLORIDE 99 ML IVPB SCH (15:00)
[2022-05-05] MEDS: DIVALPROEX SODIUM 250 MG TABLET E.C. PO SCH ×2 (16:04→22:46)
[2022-05-05] MEDS ORDERED: POTASSIUM CHLORIDE 40 MEQ in SODIUM CHLORIDE 1,000 ML IV SCH (16:19)
[2022-05-05] MEDS ORDERED: D5-NS + 40 MEQ KCL - 40 MEQ/1,000 ML INFUS.BAG IV SCH (20:00)
[2022-05-05 21:31] LABS: CALCIUM 9.2 mg/dL (8.5-10.1)
[2022-05-05 21:34] LABS: BLOOD UREA NITROGEN 19.3 mg/dL (7-18)
[2022-05-05 21:38] LABS: CREATININE 1.4 mg/dL (0.55-1.3)
[2022-05-05] MEDS ORDERED: CHLORHEXIDINE GLUCONATE 4% CLEANSER FOR DECOLONIZATION TP SCH (22:00)
[2022-05-05] MEDS: MUPIROCIN 2% TOPICAL OINTMENT FOR DECOLONIZATION NS SCH (22:26)
[2022-05-05] MEDS: HEPARIN NA (PORCINE) 5,000 UNITS/ML 1ML VIAL SQ SCH (22:31)
[2022-05-05] MEDS: D5-NS + 40 MEQ KCL - 40 MEQ/1,000 ML INFUS.BAG IV SCH (22:32)
[2022-05-05] MEDS: ONDANSETRON 4 MG/2 ML VIAL IVPUSH PRN (22:42)
[2022-05-06] MEDS: ONDANSETRON 4 MG/2 ML VIAL IVPUSH PRN ×2 (02:25→12:40)
[2022-05-06] MEDS: D5-NS + 40 MEQ KCL - 40 MEQ/1,000 ML INFUS.BAG IV SCH ×2 (03:25→07:20)
[2022-05-06] MEDS: DIVALPROEX SODIUM 250 MG TABLET E.C. PO SCH ×3 (06:14→23:27)
[2022-05-06] MEDS ORDERED: INSULIN (LEVEMIR) 100 UNITS/ML UNITS SQ SCH (07:00)
[2022-05-06] MEDS: INSULIN SLIDING SCALE (NOVOLOG) 1 VIAL SQ SCH ×4 (07:09→23:49)
[2022-05-06 08:31] LABS: CALCIUM 9.1 mg/dL (8.5-10.1)
[2022-05-06 08:32] LABS: ALBUMIN 3.8 g/dl (3.4-5.0); BLOOD UREA NITROGEN 12.9 mg/dL (7-18)
[2022-05-06 08:35] LABS: CREATININE 1.2 mg/dL (0.55-1.3)
[2022-05-06 08:37] LABS: BILIRUBIN,TOTAL 1.4 mg/dL (0.2-1); TOT PROT 6.7 g/dl (6.4-8.2)
[2022-05-06] MEDS: MUPIROCIN 2% TOPICAL OINTMENT FOR DECOLONIZATION NS SCH (09:13)
[2022-05-06] MEDS: HEPARIN NA (PORCINE) 5,000 UNITS/ML 1ML VIAL SQ SCH ×2 (09:13→23:24)
[2022-05-06] MEDS ORDERED: SODIUM CHLORIDE 1,000 ML IV SCH (11:00)
[2022-05-06] MEDS: SODIUM CHLORIDE 1,000 ML IV SCH (16:00)
[2022-05-06] MEDS ORDERED: ONDANSETRON 4 MG/2 ML VIAL IVPUSH PRN (16:00)
[2022-05-06] MEDS: metFORMIN HCL 500 MG TABLET (FP) PO SCH (16:58)
[2022-05-06 20:19] LABS: BLOOD UREA NITROGEN 9.1 mg/dL (7-18)
[2022-05-06] MEDS ORDERED: CHLORHEXIDINE GLUCONATE 4% CLEANSER FOR DECOLONIZATION TP SCH (22:00)
[2022-05-06] MEDS ORDERED: MUPIROCIN 2% TOPICAL OINTMENT FOR DECOLONIZATION NS SCH (22:00)
[2022-05-06] MEDS ORDERED: ATORVASTATIN CA 40 MG TABLET (FP) PO SCH (22:00)
[2022-05-06] MEDS: INSULIN (LEVEMIR) 100 UNITS/ML UNITS SQ SCH (23:49)
[2022-05-07] MEDS: SODIUM CHLORIDE 1,000 ML IV SCH (00:36)
[2022-05-07 05:07] VITALS: BP 135/83; PULSE 61; TEMP 98
[2022-05-07] MEDS: metFORMIN HCL 500 MG TABLET (FP) PO SCH ×2 (07:03→16:59)
[2022-05-07] MEDS: DIVALPROEX SODIUM 250 MG TABLET E.C. PO SCH ×2 (07:07→14:24)
[2022-05-07] MEDS: INSULIN (LEVEMIR) 100 UNITS/ML UNITS SQ SCH (07:10)
[2022-05-07] MEDS: INSULIN SLIDING SCALE (NOVOLOG) 1 VIAL SQ SCH ×3 (07:11→17:00)
[2022-05-07 09:43] LABS: HEMATOCRIT 36.4 % (35.4-49); HEMOGLOBIN 12.6 GM/dL (11.7-16.9); MCH 30.1 pg (25.7-33.7); MCHC 34.5 g/dl (32.0-35.9); MEAN CELL VOLUME 87.2 fl (80-96); MEAN PLT VOLUME 9.9 fl (7.5-11.1); PLATELET COUNT 163 10^3/uL (134-434); RBC 4.17 M/mm3 (4.00-5.60); RDW 13.2 % (11.9-15.9); WHITE BLOOD COUNT 5.3 K/mm3 (4.0-10.0)
[2022-05-07] MEDS ORDERED: FOLIC ACID 1 MG TABLET (FP) PO SCH (10:00)
[2022-05-07 10:17] LABS: ALBUMIN 3.4 g/dl (3.4-5.0); BLOOD UREA NITROGEN 7.2 mg/dL (7-18)
[2022-05-07 10:20] LABS: CREATININE 0.9 mg/dL (0.55-1.3)
[2022-05-07 10:21] LABS: BILIRUBIN,TOTAL 1.1 mg/dL (0.2-1); TOT PROT 6.1 g/dl (6.4-8.2)
[2022-05-07] MEDS ORDERED: INSULIN (NOVOLOG) ASPART 100 UNITS/ML 10ML VIAL ONE ×2 (10:24→17:54)
[2022-05-07] MEDS: HEPARIN NA (PORCINE) 5,000 UNITS/ML 1ML VIAL SQ SCH (11:53)
[2022-05-07 12:31] VITALS: RESP 18
== END 2022-05-07 18:57 | disposition home or self-care (01) | DRG 420 ==
LOC: JER 11:50 → JERBED 13:30 → JICU 15:31 → J6S 05-06 15:55
PROVIDERS: ADMIT Internal Medicine; ATTEND Internal Medicine
DX: E11.10 Type 2 diabetes mellitus with ketoacidosis without coma (principal); G40.909 Epilepsy, unspecified, not intractable, without status epilepticus; Z87.820 Personal history of traumatic brain injury; N17.9 Acute kidney failure, unspecified; I10 Essential (primary) hypertension; E78.5 Hyperlipidemia, unspecified; Z91.14 Patient's other noncompliance with medication regimen; E87.6 Hypokalemia; F17.210 Nicotine dependence, cigarettes, uncomplicated; F12.90 Cannabis use, unspecified, uncomplicated; Z79.4 Long term (current) use of insulin
CPT/HCPCS: 36415; 71045-TC-FY; 80048; 80053; 81003; 82010; 82803; 82962; 83036; 84132; 85025; 85027; 85610; 85730; 87086; 93005; 93010; 99291; C9803-CS; J1644; U0003; U0005